=== PATIENT | male | born 1935 | race Caucasian/White ===

== ENCOUNTER 2016-02-23 07:15 | Outpatient (CLI) | payer MEDICARE, OTHER | END 2016-02-23 07:16 | disposition home or self-care (01) | DX: E11.9 Type 2 diabetes mellitus without complications (principal) ==

== ENCOUNTER 2016-06-04 14:36 | Emergency (ER) | payer MEDICARE, OTHER ==
[2016-06-04] MEDS ORDERED: SODIUM CHLORIDE 0.9% 500 ML IV ONE (16:23)
== END 2016-06-04 17:17 | disposition home or self-care (01) ==
DX: R53.1 Weakness (principal); J44.9 Chronic obstructive pulmonary disease, unspecified; J45.909 Unspecified asthma, uncomplicated; E11.9 Type 2 diabetes mellitus without complications; Z79.4 Long term (current) use of insulin; K21.9 Gastro-esophageal reflux disease without esophagitis; Z86.718 Personal history of other venous thrombosis and embolism

== ENCOUNTER 2016-06-05 14:58 | Outpatient (CLI) | payer MEDICARE, OTHER | END 2016-06-05 23:59 | disposition home or self-care (01) | DX: E11.9 Type 2 diabetes mellitus without complications (principal) ==

== ENCOUNTER 2016-06-14 04:33 | Emergency (ER) | payer MEDICARE, OTHER | END 2016-06-14 04:59 | disposition home or self-care (01) | DX: B35.3 Tinea pedis (principal); E11.9 Type 2 diabetes mellitus without complications; I82.409 Acute embolism and thrombosis of unspecified deep veins of unspecified lower extremity; J45.909 Unspecified asthma, uncomplicated; J44.9 Chronic obstructive pulmonary disease, unspecified; K21.9 Gastro-esophageal reflux disease without esophagitis; Z79.4 Long term (current) use of insulin; Z79.51 Long term (current) use of inhaled steroids; A15.9 Respiratory tuberculosis unspecified ==

== ENCOUNTER 2016-08-24 17:48 | Outpatient (CLI) | payer MEDICARE, OTHER ==
--- NOTE | 2016-08-25 20:37 | XRAY Report ---
EXAM: CHEST RADIOGRAPHY EXAM DATE: 08/24/2016 05:59 PM. CLINICAL HISTORY: COPD. COMPARISON: 06/04/2016 TECHNIQUE: 2 views. FINDINGS: Lungs/Pleura: No focal opacities evident. No pleural effusion. No pneumothorax. Normal volumes. Mediastinum: Heart and mediastinal contours are unremarkable. Other: Degenerative change in the spine. Stable right pleural calcification. IMPRESSION: Negative 2-view chest radiography for acute findings or significant interval change since 06/04/2016. [facility] Referring Provider Line: [phone] SITE ID: [id number]
== END 2016-08-24 17:49 | disposition home or self-care (01) ==
LOC: DI 17:48
PROVIDERS: ATTEND Family Medicine
DX: J44.9 Chronic obstructive pulmonary disease, unspecified (principal)
CPT/HCPCS: 71020

== ENCOUNTER 2016-09-06 10:36 | Outpatient (CLI) | payer MEDICARE, OTHER ==
[2016-09-06 19:08] LABS: BASOPHILS # (AUTO) 0.1 10^3/uL (0.0-0.1); BASOPHILS % (AUTO) 0.8 %; EOSINOPHILS # (AUTO) 0.2 10^3/uL (0.0-0.7); EOSINOPHILS % (AUTO) 2.4 %; HCT - HEMATOCRIT 33.8 % (42.0-52.0); HGB - HEMOGLOBIN 10.7 g/dL (14.0-18.0); LYMPHOCYTES # (AUTO) 1.7 10^3/uL (1.5-3.5); LYMPHOCYTES % (AUTO) 17.1 %; MEAN CORPUSCULAR HEMOGLOBIN 23.7 pg (27.0-31.0); MEAN CORPUSCULAR HGB CONC 31.5 g/dL (32.0-36.0); MEAN CORPUSCULAR VOLUME 75.3 fL (80.0-94.0); MEAN PLATELET VOLUME 7.8 fL (7.4-11.4); MONOCYTES # (AUTO) 1.1 10^3/uL (0.0-1.0); MONOCYTES % (AUTO) 11.1 %; NEUTROPHILS # (AUTO) 6.7 10^3/uL (1.5-6.6); NEUTROPHILS % (AUTO) 68.6 %; RED BLOOD COUNT 4.49 10^6/uL (4.70-6.10); RED CELL DISTRIBUTION WIDTH 17.3 % (12.0-15.0); UNCORRECTED WHITE BLOOD COUNT 9.8 x10^3/uL; WHITE BLOOD COUNT 9.8 x10^3/uL (4.8-10.8)
[2016-09-06 19:17] LABS: ALBUMIN/GLOBULIN RATIO 1.3 (1.0-2.2); BILIRUBIN,TOTAL 0.5 mg/dL (0.2-1.0); BUN - BLOOD UREA NITROGEN 21 mg/dL (6-20); CALCIUM 8.3 mg/dL (8.5-10.3); CARBON DIOXIDE - CO2 23 mmol/L (21-32); CHLORIDE 99 mmol/L (101-111); CHOL/HDL RATIO 2.9 (<5.0); CHOLESTEROL 169 mg/dL; CREATININE 1.4 mg/dL (0.6-1.2); GFR - MDRD 49 (>89); GLUCOSE 181 mg/dL (70-100); HDL CHOLESTEROL 59 mg/dL; LDL/HDL RATIO 1.6 (<3.6); POTASSIUM 4.3 mmol/L (3.5-5.0); SODIUM 130 mmol/L (135-145); TOTAL PROTEIN 6.8 g/dL (6.7-8.2); TRIGLYCERIDES 87 mg/dL; VLDL CHOLESTEROL 17 mg/dL
[2016-09-06 19:29] LABS: HEMOGLOBIN A1C 0.86 g/dL
== END 2016-09-06 10:37 | disposition home or self-care (01) ==
LOC: LAB.WCP 10:36
PROVIDERS: ATTEND Family Medicine
DX: E11.9 Type 2 diabetes mellitus without complications (principal)
CPT/HCPCS: 36415; 80053; 80061; 82043; 83036; 85025

== ENCOUNTER 2016-12-05 00:56 | Emergency (ER) | payer MEDICARE, OTHER ==
--- NOTE | 2016-12-05 01:19 | ED Physician Documentation ---
PD HPI LOWER EXT INJURY - Stated complaint Stated Complaint: LT LEG PAIN - Chief complaint Chief Complaint: Ext Problem - History obtained from History obtained from: Patient, Family - History of Present Illness PD HPI LOW EXT INJURY LOCATION: Both, Lower leg Where injury occurred: Home Timing - onset: How many days ago (4) Timing - details: Gradual onset, Still present Worsened by: Moving Associated symptoms: Swelling. No: Weakness Contributing factors: Anticoagulated, Prior ortho surgery, Prosthetic joint Similar symptoms before: Work up / diagnostics Recently seen: Not recently seen - Additional information Additional information: Patient is a 81 year old male who is presenting to the emergency department for lower leg pain. Patient states that for the last four days he has had pain in both of his legs. tonight when he got up to go to the bathroom it hurt to much for him to walk. Patient states that he has had blood clots in the past. Patient denied any trauma, fever, chills or change in his respiratory status. Review of Systems Constitutional: denies: Fever, Chills Eyes: reports: Reviewed and negative Ears: reports: Reviewed and negative Nose: reports: Reviewed and negative Throat: reports: Reviewed and negative Cardiac: reports: Calf pain. denies: Chest pain / pressure, Palpitations Respiratory: denies: Dyspnea, Cough, Wheezing GI: denies: Nausea, Vomiting : denies: Frequency Skin: denies: Rash, Lesions, Abrasion (s), Laceration (s) Musculoskeletal: reports: Extremity pain, Extremity swelling Neurologic: denies: Generalized weakness, Focal weakness, Numbness Immunocompromised: denies: Immunocompromised PD PAST MEDICAL HISTORY - Past Medical History Cardiovascular: Deep vein thrombosis Respiratory: Asthma, COPD, Pneumonia, Tuberculosis, Other Neuro: None Endocrine/Autoimmune: Type 2 diabetes GI: GERD : None HEENT: Other Psych: Anxiety Musculoskeletal: None Derm: Herpes zoster - Past Surgical History Past Surgical History: Yes General: Colonoscopy, EGD Ortho: Knee replacement, Arthroscopic surgery, Other - Present Medications Home Medications: Ambulatory Orders Medication Instructions Recorded Confirmed Fluticasone/Salmeterol [Advair 1 puffs ORAL BID 07/30/13 12/05/16 250-50 Diskus] Insulin Glargine [Lantus] 30 units SUBQ DAILY 07/30/13 12/05/16 Ipratropium/Albuterol [Combivent 1 puffs ORAL BID 07/30/13 12/05/16 Respimat] Levothyroxine [Synthroid] 100 mcg PO QDAC 07/30/13 12/05/16 Montelukast [Singulair] 10 tab ORAL DAILY 07/30/13 12/05/16 Omeprazole [Prilosec] 40 mg PO DAILY 07/30/13 12/05/16 Ranitidine HCl [Zantac] 300 mg PO DAILY 07/30/13 12/05/16 Tamsulosin HCl [Flomax] 0.4 tab ORAL DAILY 07/30/13 12/05/16 Nystatin 10 ml PO BID #100 ml 07/26/14 12/05/16 Apixaban [Eliquis] 5 mg DAILY 02/16/16 12/05/16 Clotrimazole [Clotrimazole AF] 1 applic TP BID #28 gm 06/14/16 12/05/16 - Allergies Allergies/Adverse Reactions: Allergies Allergy/AdvReac Type Severity Reaction Status Date / Time JANNY Inhibitors Allergy Intermediate Unknown Verified 12/05/16 01:11 lovastatin Allergy Intermediate Headache Verified 12/05/16 01:11 tiotropium bromide * Allergy Intermediate Respiratory Verified 12/05/16 01:11 [From Spiriva with HandiHaler] azithromycin [From Zithromax] Allergy Unknown Unknown Verified 12/05/16 01:11 carvedilol [From Coreg] Allergy Unknown Unknown Verified 12/05/16 01:11 losartan [Losartan] Allergy Unknown Unknown Verified 12/05/16 01:11 metformin Allergy Unknown Unknown Verified 12/05/16 01:11 olmesartan medoxomil * Allergy Unknown Unknown Verified 12/05/16 01:11 [From Benicar] - Social History Does the pt smoke?: No Smoking Status: Never smoker Does the pt drink ETOH?: Yes Does the pt have substance abuse?: No - Immunizations Immunizations are current?: Yes - POLST Patient has POLST: No PD ED PE NORMAL - Vitals Vital signs reviewed: Yes - General General: Alert and oriented X 3 - HEENT HEENT: Atraumatic, PERRL - Neck Neck: Supple, no meningeal sign - Cardiac Cardiac: RRR, No murmur - Respiratory Respiratory: No respiratory distress - Abdomen Abdomen: Soft - Derm Derm: Normal color, Warm and dry, No rash - Neuro Neuro: Alert and oriented X 3, No motor deficit, No sensory deficit, Normal speech - Psych Psych: Normal mood, Normal affect PD ED PE EXPANDED - Extremities Extremities: Right leg (increased swelling when comparted to the left, tenderness to palpation), Left leg (tenderness to palpation, no ecchymosis, no deformity), Pedal Pulses Present, Motor intact, Sensory intact, Vascular intact , Tendon intact Results - Vitals Vitals: Vital Signs - 24 hr 12/05/16 12/05/16 01:06 02:22 Temperature 36.9 C Heart Rate 90 82 Respiratory 18 18 Rate Blood Pressure 152/74 H 154/83 H O2 Saturation 96 98 Oxygen O2 Source Room air - Labs Labs: Laboratory Tests 12/05/16 12/05/16 01:25 01:25 WBC 7.5 RBC 4.03 L Hgb 9.1 L Hct 28.4 L MCV 70.5 L MCH 22.5 L MCHC 32.0 RDW 17.5 H Plt Count 312 MPV 6.6 L Neut # 4.3 Lymph # 1.9 [place] # 0.8 Eos # 0.4 Baso # 0.1 Absolute Nucleated RBC 0.00 Nucleated RBC % 0.0 Sodium 129 L Potassium 3.9 Chloride 98 L Carbon Dioxide 22 Anion Gap 9.0 BUN 24 H Creatinine 1.2 Estimated GFR (MDRD) 58 L Glucose 149 H Calcium 8.2 L Total Bilirubin 0.5 AST 18 ALT 17 Alkaline Phosphatase 49 Total Protein 6.6 L Albumin 3.7 Globulin 2.9 Albumin/Globulin Ratio 1.3 Lipase 44 - Rads (name of study) bilateral vasc study Radiology: Final report received (no acute dvt) PD MEDICAL DECISION MAKING - ED course Complexity details: reviewed old records, reviewed results, re-evaluated patient , considered differential, d/w patient, d/w family ED course: Patient was seen and examined at bedside. labs were drawn and imaging was ordered. Patient's diagnostics were all within normal limits. there was no sign of dvt. patient required no further inpatient work up and was stable for discharge with outpatient follow up. Departure - Departure Disposition: 01 Home, Self Care Clinical Impression: Pain of lower extremity Condition: Good Instructions: ED Muscle Pain Leg Cramps Follow-Up: Aleksandra Good DO [Primary Care Provider] - Within 3 Days Comments: Your diagnostics today were within normal limits. It is difficult to say what is causing your pain exactly. it could be due to muscle cramps, or peripheral neuropathy. there is no sign of acute blood clot today. You can take tylenol as needed for pain. You should follow up with your doctor this week. You can return to the emergency department at any time for new, worsening or uncontrollable symptoms.
[2016-12-05 01:30] LABS: BASOPHILS # (AUTO) 0.1 10^3/uL (0.0-0.1); BASOPHILS % (AUTO) 1.3 %; EOSINOPHILS # (AUTO) 0.4 10^3/uL (0.0-0.7); EOSINOPHILS % (AUTO) 4.8 %; HCT - HEMATOCRIT 28.4 % (42.0-52.0); HGB - HEMOGLOBIN 9.1 g/dL (14.0-18.0); LYMPHOCYTES # (AUTO) 1.9 10^3/uL (1.5-3.5); LYMPHOCYTES % (AUTO) 25.8 %; MEAN CORPUSCULAR HEMOGLOBIN 22.5 pg (27.0-31.0); MEAN CORPUSCULAR VOLUME 70.5 fL (80.0-94.0); MEAN PLATELET VOLUME 6.6 fL (7.4-11.4); MONOCYTES # (AUTO) 0.8 10^3/uL (0.0-1.0); MONOCYTES % (AUTO) 10.2 %; NEUTROPHILS # (AUTO) 4.3 10^3/uL (1.5-6.6); NEUTROPHILS % (AUTO) 57.9 %; RED BLOOD COUNT 4.03 10^6/uL (4.70-6.10); RED CELL DISTRIBUTION WIDTH 17.5 % (12.0-15.0); UNCORRECTED WHITE BLOOD COUNT 7.5 x10^3/uL; WHITE BLOOD COUNT 7.5 x10^3/uL (4.8-10.8)
[2016-12-05 01:43] LABS: ALBUMIN/GLOBULIN RATIO 1.3 (1.0-2.2); BILIRUBIN,TOTAL 0.5 mg/dL (0.2-1.0); CALCIUM 8.2 mg/dL (8.5-10.3); CREATININE 1.2 mg/dL (0.6-1.2); POTASSIUM 3.9 mmol/L (3.5-5.0); TOTAL PROTEIN 6.6 g/dL (6.7-8.2)
--- NOTE | 2016-12-05 02:14 | Ultrasound Preliminary Report ---
Exam: US DUPLEX EXT VEINS BILATERAL IMPRESSION: 1. No evidence for deep venous thrombosis bilaterally. 2. Fluid collection at the left anterior lateral knee measuring 2.7 x 0.7 x 2.8 cm. [facility] SITE ID: [id number]
--- NOTE | 2016-12-05 02:16 | Ultrasound Report ---
EXAM: BILATERAL LOWER EXTREMITY VENOUS ULTRASOUND EXAM DATE: 12/05/2016 02:05 AM. CLINICAL HISTORY: Pain in both lower extremities, swelling in left, . COMPARISON: 12/12/2013. TECHNIQUE: Real-time sonographic vascular imaging was performed by the excel specialist through the lower extremities utilizing both color-flow and Doppler spectral analysis. Multiple customer success representative static i mages were saved for review. FINDINGS: Right: Common Femoral Vein (CFV): Normal. CFV-GSV Junction: Normal. Profunda Femoral Vein (PFV): Normal. Femoral Vein (FV) Prox: Normal. Femoral Vein (FV) Mid: Normal. Femoral Vein (FV) Dist: Normal. Popliteal Vein: Normal. Posterior Tibial Veins: Normal. Peroneal Veins: Normal. Left: Common Femoral Vein (CFV): Normal. CFV-GSV Junction: Normal. Profunda Femoral Vein (PFV): Normal. Femoral Vein (FV) Prox: Normal. Femoral Vein (FV) Mid: Normal. Femoral Vein (FV) Dist: Normal. Popliteal Vein: Normal. Posterior Tibial Veins: Normal. Peroneal Veins: Normal. Other: Fluid collection at the left lateral anterior knee measuring 2.7 x 0.7 x 2.8 cm. IMPRESSION: 1. No evidence for deep venous thrombosis bilaterally. 2. Fluid collection at the left anterior lateral knee measuring 2.7 x 0.7 x 2.8 cm. [facility] Referring Provider Line: [phone] SITE ID: [id number]
[2016-12-05 02:22] VITALS: BP 154/83
== END 2016-12-05 02:35 | disposition home or self-care (01) ==
LOC: ED 00:56
DX: M79.605 Pain in left leg (principal); R22.42 Localized swelling, mass and lump, left lower limb; E11.9 Type 2 diabetes mellitus without complications; Z79.4 Long term (current) use of insulin; Z96.659 Presence of unspecified artificial knee joint; Z86.718 Personal history of other venous thrombosis and embolism
CPT/HCPCS: 36415; 80053; 83690; 85025; 93970; 99283

== ENCOUNTER 2017-01-21 07:10 | Outpatient (CLI) | payer MEDICARE, OTHER ==
[2017-01-21 12:43] LABS: ALBUMIN/GLOBULIN RATIO 1.3 (1.0-2.2); BILIRUBIN,TOTAL 0.9 mg/dL (0.2-1.0); CALCIUM 8.3 mg/dL (8.5-10.3); CREATININE 1.6 mg/dL (0.6-1.2); POTASSIUM 4.1 mmol/L (3.5-5.0); TOTAL PROTEIN 6.7 g/dL (6.7-8.2)
== END 2017-01-21 07:11 | disposition home or self-care (01) ==
LOC: LAB.WCP 07:10
PROVIDERS: ATTEND Internal Medicine Critical Care Medicine
DX: J45.50 Severe persistent asthma, uncomplicated (principal)
CPT/HCPCS: 36415; 80053

== ENCOUNTER 2017-02-24 12:16 | Emergency (ER) | payer MEDICARE, OTHER ==
--- NOTE | 2017-02-24 12:47 | ED Physician Documentation ---
PD HPI DYSPNEA - Stated complaint Stated Complaint: COUGH - Chief complaint Chief Complaint: Resp - History obtained from History obtained from: Patient - History of Present Illness Timing - onset: How many weeks ago (1) Timing - onset during: Rest Timing - duration: Weeks (1) Timing - details: Gradual onset, Still present Inciting event(s): URI Improved by: Rest Worsened by: Exertion Associated symptoms: Cough Similar symptoms before: Diagnosis (pneumonia and asperigillosis) Recently seen: Not recently seen - Additional information Additional information: 82-year-old male with a history of bronchiectasis asthma and allergic aspergillosisHas had pneumonia a number of times and he has began to cough and cough up colored phlegm he has had this a number of times previously and usually takes an antibiotic with resolution. He is a poor historian and unable to give adequate or chronologic history about his recent visits to his doctors. He does bring in paperwork showing his diagnosis of allergic aspergillosis and indicates he did not take the antifungal prescribed. He did not take the prednisone prescribed. Review of Systems Constitutional: reports: Myalgias, Fatigue. denies: Fever Eyes: denies: Decreased vision Ears: denies: Ear pain Nose: reports: Rhinorrhea / runny nose, Congestion Throat: denies: Sore throat Cardiac: denies: Chest pain / pressure, Palpitations Respiratory: reports: Dyspnea, Cough GI: denies: Abdominal Pain, Nausea, Vomiting : denies: Dysuria, Frequency PD PAST MEDICAL HISTORY - Past Medical History Cardiovascular: Deep vein thrombosis Respiratory: Asthma, COPD, Pneumonia, Tuberculosis, Other Neuro: None Endocrine/Autoimmune: Type 2 diabetes GI: GERD : None HEENT: Other Psych: Anxiety Musculoskeletal: None Derm: Herpes zoster - Past Surgical History Past Surgical History: Yes General: Colonoscopy, EGD Ortho: Knee replacement, Arthroscopic surgery, Other - Present Medications Home Medications: Ambulatory Orders Medication Instructions Recorded Confirmed Fluticasone/Salmeterol [Advair 1 puffs ORAL BID 07/30/13 12/05/16 250-50 Diskus] Insulin Glargine [Lantus] 30 units SUBQ DAILY 07/30/13 12/05/16 Ipratropium/Albuterol [Combivent 1 puffs ORAL BID 07/30/13 12/05/16 Respimat] Levothyroxine [Synthroid] 100 mcg PO QDAC 07/30/13 12/05/16 Montelukast [Singulair] 10 tab ORAL DAILY 07/30/13 12/05/16 Omeprazole [Prilosec] 40 mg PO DAILY 07/30/13 12/05/16 Ranitidine HCl [Zantac] 300 mg PO DAILY 07/30/13 12/05/16 Tamsulosin HCl [Flomax] 0.4 tab ORAL DAILY 07/30/13 12/05/16 Nystatin 10 ml PO BID #100 ml 07/26/14 12/05/16 Apixaban [Eliquis] 5 mg DAILY 02/16/16 12/05/16 Clotrimazole [Clotrimazole AF] 1 applic TP BID #28 gm 06/14/16 12/05/16 Cefuroxime Axetil [Cefuroxime] 500 mg PO BID #20 tablet 02/24/17 - Allergies Allergies/Adverse Reactions: Allergies Allergy/AdvReac Type Severity Reaction Status Date / Time JANNY Inhibitors Allergy Intermediate Unknown Verified 12/05/16 01:11 lovastatin Allergy Intermediate Headache Verified 12/05/16 01:11 tiotropium bromide * Allergy Intermediate Respiratory Verified 12/05/16 01:11 [From Spiriva with HandiHaler] azithromycin [From Zithromax] Allergy Unknown Unknown Verified 12/05/16 01:11 carvedilol [From Coreg] Allergy Unknown Unknown Verified 12/05/16 01:11 losartan [Losartan] Allergy Unknown Unknown Verified 12/05/16 01:11 metformin Allergy Unknown Unknown Verified 12/05/16 01:11 olmesartan medoxomil * Allergy Unknown Unknown Verified 12/05/16 01:11 [From Benicar] - Social History Does the pt smoke?: No Smoking Status: Never smoker Does the pt drink ETOH?: Yes Does the pt have substance abuse?: No - Immunizations Immunizations are current?: Yes - POLST Patient has POLST: No PD ED PE NORMAL - Vitals Vital signs reviewed: Yes (Tachycardic tachypneic and hypertensive) - General General: No acute distress, Well developed/nourished - HEENT HEENT: Atraumatic, PERRL, EOMI, Other (The left TM is erythematous around the margin and along the umbo the right is with less inflammation.) - Neck Neck: Supple, no meningeal sign, No bony TTP - Cardiac Cardiac: Other - Respiratory Respiratory: No respiratory distress (Tachycardic to a rate of 110 with a 2 out of 6 holosystolic murmur.), Other - Abdomen Abdomen: Soft (Bibasilar rhonchi worse on the right.), Non tender - Back Back: No CVA TTP, No spinal TTP - Derm Derm: Normal color, No rash - Extremities Extremities: No deformity, No edema - Neuro Neuro: No motor deficit, No sensory deficit Eye Opening: Spontaneous Motor: Obeys Commands Verbal: Oriented GCS Score: 15 - Psych Psych: Normal mood, Normal affect Results - Vitals Vitals: Vital Signs - 24 hr 02/24/17 12:19 Temperature 36.1 C L Heart Rate 102 H Respiratory 26 H Rate Blood Pressure 146/75 H O2 Saturation 96 Oxygen O2 Source Room air - Rads (name of study) 2 view chest Radiology: Prelim report reviewed (Impression: No acute cardiopulmonary abnormality.), EMP read indepedently, See rad report PD MEDICAL DECISION MAKING - ED course Complexity details: reviewed old records, reviewed results, re-evaluated patient , considered differential, d/w patient ED course: 82-year-old male with noncompliance to his molecular pathologist recommendations has developed a cough productive of sputum. He has prior history himself with this repeatedly and he requests antibiotic prescription. Exam of the patient shows otitis on exam and he does appear to have some rhonchi as well as some subtle findings on his chest x-ray which are not commented on by the radiologist. Here in the emergency department he is administered Rocephin intramuscularly and we will place him on a course of Ceftin. Departure - Departure Disposition: 01 Home, Self Care Clinical Impression: Pneumonia Qualifiers: Pneumonia type: due to unspecified organism Laterality: bilateral Lung location : lower lobe of lung Qualified Code(s): J18.9 - Pneumonia, unspecified organism Otitis media Qualifiers: Otitis media type: suppurative Chronicity: acute Laterality: left Recurrence: not specified as recurrent Spontaneous tympanic membrane rupture: without spontaneous rupture Qualified Code(s): H66.002 - Acute suppurative otitis media without spontaneous rupture of ear drum, left ear Instructions: ED Otitis Media Acute Adult, ED Pneumonia Adult Follow-Up: Aleksandra Good DO [Primary Care Provider] - Prescriptions: Cefuroxime Axetil [Cefuroxime] 500 mg PO BID #20 tablet
[2017-02-24] MEDS ORDERED: LIDOCAINE 1% 2 ML VIAL SUBQ ONE (13:34)
[2017-02-24] MEDS ORDERED: cefTRIAXone 1 GM VIAL IM STA (13:34)
--- NOTE | 2017-02-24 14:00 | XRAY Report ---
EXAM: CHEST RADIOGRAPHY EXAM DATE: 02/24/2017 01:35 PM. CLINICAL HISTORY: Cough. COMPARISON: 08/24/2016. TECHNIQUE: 2 views. FINDINGS: Lungs/Pleura: No consolidation. Negative for pleural effusion and pneumothorax. Lungs appear unchange d. Mediastinum: Heart and mediastinal contours are unremarkable. Other: None. IMPRESSION: No acute cardiopulmonary abnormality. [facility] Referring Provider Line: [phone] SITE ID: [id number]
[2017-02-24 15:13] VITALS: BP 135/75
== END 2017-02-24 14:44 | disposition home or self-care (01) ==
LOC: ED 12:16
DX: J18.9 Pneumonia, unspecified organism (principal); H66.002 Acute suppurative otitis media without spontaneous rupture of ear drum, left ear; Z86.718 Personal history of other venous thrombosis and embolism; Z79.01 Long term (current) use of anticoagulants; J44.9 Chronic obstructive pulmonary disease, unspecified; E11.9 Type 2 diabetes mellitus without complications; Z79.4 Long term (current) use of insulin; K21.9 Gastro-esophageal reflux disease without esophagitis
CPT/HCPCS: 71046; 96372; 99283; 99284

== ENCOUNTER 2017-04-22 07:10 | Outpatient (CLI) | payer MEDICARE, OTHER ==
[2017-04-22 13:09] LABS: BASOPHILS # (AUTO) 0.2 10^3/uL (0.0-0.1); BASOPHILS % (AUTO) 1.5 %; EOSINOPHILS % (AUTO) 0.3 %; LYMPHOCYTES # (AUTO) 2.8 10^3/uL (1.5-3.5); LYMPHOCYTES % (AUTO) 27.6 %; MEAN CORPUSCULAR HEMOGLOBIN 20.2 pg (27.0-31.0); MEAN CORPUSCULAR HGB CONC 31.5 g/dL (32.0-36.0); MEAN CORPUSCULAR VOLUME 64.1 fL (80.0-94.0); MEAN PLATELET VOLUME 7.7 fL (7.4-11.4); MONOCYTES # (AUTO) 0.9 10^3/uL (0.0-1.0); MONOCYTES % (AUTO) 8.8 %; NEUTROPHILS # (AUTO) 6.4 10^3/uL (1.5-6.6); NEUTROPHILS % (AUTO) 61.8 %; PLT - PLATELET COUNT 361 10^3/uL (130-450); RED BLOOD COUNT 4.44 10^6/uL (4.70-6.10); RED CELL DISTRIBUTION WIDTH 20.1 % (12.0-15.0); WHITE BLOOD COUNT 10.3 x10^3/uL (4.8-10.8)
[2017-04-22 13:27] LABS: PLATELET ESTIMATE, MANUAL NORMAL (130-450,000) (NORMAL); PLATELET MORPHOLOGY NORMAL APPEARANCE (NORMAL)
[2017-04-22 13:42] LABS: ALBUMIN 4.1 g/dL (3.2-5.5); ALBUMIN/GLOBULIN RATIO 1.2 (1.0-2.2); ALKALINE PHOSPHATASE 43 IU/L (42-121); ALT ALANINE AMINOTRANSFERASE 16 IU/L (10-60); AST ASPARTATE AMINOTRANSFERASE 21 IU/L (10-42); BILIRUBIN,TOTAL 0.5 mg/dL (0.2-1.0); BUN - BLOOD UREA NITROGEN 29 mg/dL (6-20); CALCIUM 8.5 mg/dL (8.5-10.3); CARBON DIOXIDE - CO2 23 mmol/L (21-32); CHLORIDE 102 mmol/L (101-111); CHOL/HDL RATIO 2.5 (<5.0); CHOLESTEROL 152 mg/dL; CREATININE 1.5 mg/dL (0.6-1.2); GFR - MDRD 45 (>89); GLUCOSE 117 mg/dL (70-100); HDL CHOLESTEROL 61 mg/dL; LDL CHOLESTEROL,CALCULATED 81 mg/dL; LDL/HDL RATIO 1.3 (<3.6); SODIUM 133 mmol/L (135-145); TOTAL PROTEIN 7.5 g/dL (6.7-8.2); VLDL CHOLESTEROL 10 mg/dL
[2017-04-22 13:54] LABS: HB2 TOTAL 9.5 g/dL; HEMOGLOBIN A1C 0.59 g/dL; HEMOGLOBIN A1C % 7.8 % (4.6-6.2)
== END 2017-04-22 07:11 | disposition home or self-care (01) ==
LOC: LAB.WCP 07:10
PROVIDERS: ATTEND Family Medicine
DX: E11.9 Type 2 diabetes mellitus without complications (principal)
CPT/HCPCS: 36415; 80053; 80061; 82043; 83036; 83721; 85025

== ENCOUNTER 2017-05-07 08:00 | Outpatient (CLI) | payer MEDICARE, OTHER ==
[2017-05-07 19:16] LABS: BASOPHILS # (AUTO) 0.1 10^3/uL (0.0-0.1); BASOPHILS % (AUTO) 1.2 %; EOSINOPHILS # (AUTO) 0.3 10^3/uL (0.0-0.7); EOSINOPHILS % (AUTO) 3.1 %; HGB - HEMOGLOBIN 9.5 g/dL (14.0-18.0); LYMPHOCYTES # (AUTO) 1.7 10^3/uL (1.5-3.5); LYMPHOCYTES % (AUTO) 18.3 %; MEAN CORPUSCULAR HEMOGLOBIN 20.7 pg (27.0-31.0); MEAN CORPUSCULAR HGB CONC 30.9 g/dL (32.0-36.0); MEAN CORPUSCULAR VOLUME 66.8 fL (80.0-94.0); MEAN PLATELET VOLUME 8.5 fL (7.4-11.4); MONOCYTES # (AUTO) 0.8 10^3/uL (0.0-1.0); MONOCYTES % (AUTO) 8.8 %; NEUTROPHILS # (AUTO) 6.4 10^3/uL (1.5-6.6); NEUTROPHILS % (AUTO) 68.6 %; PLT - PLATELET COUNT 319 10^3/uL (130-450); RED BLOOD COUNT 4.59 10^6/uL (4.70-6.10); RED CELL DISTRIBUTION WIDTH 21.9 % (12.0-15.0); WHITE BLOOD COUNT 9.3 x10^3/uL (4.8-10.8)
[2017-05-07 19:32] LABS: PLATELET ESTIMATE, MANUAL NORMAL (130-450,000) (NORMAL); PLATELET MORPHOLOGY NORMAL APPEARANCE (NORMAL)
== END 2017-05-07 08:01 | disposition home or self-care (01) ==
LOC: LAB.WCP 08:00
PROVIDERS: ATTEND Family Medicine
DX: E11.9 Type 2 diabetes mellitus without complications (principal); D50.9 Iron deficiency anemia, unspecified
CPT/HCPCS: 36415; 82985; 85025

== ENCOUNTER 2017-05-30 01:13 | Emergency (ER) | payer MEDICARE, OTHER ==
--- NOTE | 2017-05-30 01:28 | ED Physician Documentation ---
PD HPI LOWER EXT INJURY - Stated complaint Stated Complaint: LEG PX - Chief complaint Chief Complaint: Ext Problem - History obtained from History obtained from: Patient - History of Present Illness PD HPI LOW EXT INJURY LOCATION: Right, Upper leg, Lower leg Where injury occurred: Home Worsened by: Moving, Palpating Associated symptoms: Swelling. No: Weakness, Numbness Contributing factors: Anticoagulated Similar symptoms before: Work up / diagnostics Recently seen: Clinic - Additional information Additional information: Patient is an 82 year old male with a history of peripheral neuropathy, chronic pain and dvt who is presenting to the emergency department for right sided leg pain and cramping. patient states that it has been going on for about 2 weeks. Patient denies any trauma and reports that he has been compliant with his blood thinners. Patient is on diuretics. Review of Systems Constitutional: denies: Fever, Chills Eyes: reports: Reviewed and negative Ears: reports: Reviewed and negative Nose: reports: Reviewed and negative Throat: reports: Reviewed and negative Cardiac: reports: Pedal edema, Calf pain Respiratory: reports: Wheezing. denies: Dyspnea GI: denies: Abdominal Pain, Nausea, Vomiting Skin: denies: Rash, Lesions Musculoskeletal: reports: Extremity pain, Joint pain, Extremity swelling Neurologic: denies: Generalized weakness, Focal weakness Immunocompromised: denies: Immunocompromised PD PAST MEDICAL HISTORY - Past Medical History Past Medical History: Yes Cardiovascular: Deep vein thrombosis Respiratory: Asthma, COPD, Pneumonia, Tuberculosis, Other Neuro: None Endocrine/Autoimmune: Type 2 diabetes GI: GERD : None HEENT: Other Psych: Anxiety Musculoskeletal: None Derm: Herpes zoster - Past Surgical History Past Surgical History: Yes General: Colonoscopy, EGD Ortho: Knee replacement, Arthroscopic surgery, Other - Present Medications Home Medications: Ambulatory Orders Medication Instructions Recorded Confirmed Fluticasone/Salmeterol [Advair 1 puffs ORAL BID 07/30/13 12/05/16 250-50 Diskus] Insulin Glargine [Lantus] 30 units SUBQ DAILY 07/30/13 12/05/16 Ipratropium/Albuterol [Combivent 1 puffs ORAL BID 07/30/13 12/05/16 Respimat] Levothyroxine [Synthroid] 100 mcg PO QDAC 07/30/13 12/05/16 Montelukast [Singulair] 10 tab ORAL DAILY 07/30/13 12/05/16 Apixaban [Eliquis] 5 mg PO DAILY 02/16/16 12/05/16 Albuterol Sulfate [Proair Hfa 1 - 2 puffs INH Q4H 05/30/17 Inhaler] Cholecalciferol (Vitamin D3) 2,000 unit PO DAILY 05/30/17 [Vitamin D3] Ferrous Sulfate 325 mg PO DAILY 05/30/17 05/30/17 Glimepiride 1 mg PO DAILY 05/30/17 Latanoprost 0.005% Ophth Drops 1 drops EACHEYE DAILY 05/30/17 [Xalatan Ophth Drops] - Allergies Allergies/Adverse Reactions: Allergies Allergy/AdvReac Type Severity Reaction Status Date / Time JANNY Inhibitors Allergy Intermediate Unknown Verified 05/30/17 01:21 lovastatin Allergy Intermediate Headache Verified 05/30/17 01:21 tiotropium bromide * Allergy Intermediate Respiratory Verified 05/30/17 01:21 [From Spiriva with HandiHaler] azithromycin [From Zithromax] Allergy Unknown Unknown Verified 05/30/17 01:21 carvedilol [From Coreg] Allergy Unknown Unknown Verified 05/30/17 01:21 losartan [Losartan] Allergy Unknown Unknown Verified 05/30/17 01:21 metformin Allergy Unknown Unknown Verified 05/30/17 01:21 olmesartan medoxomil * Allergy Unknown Unknown Verified 05/30/17 01:21 [From Benicar] - Social History Does the pt smoke?: No Smoking Status: Never smoker Does the pt drink ETOH?: Yes Does the pt have substance abuse?: No - Immunizations Immunizations are current?: Yes - POLST Patient has POLST: No PD ED PE NORMAL - Vitals Vital signs reviewed: Yes - General General: Alert and oriented X 3 - HEENT HEENT: Atraumatic - Cardiac Cardiac: RRR - Respiratory Respiratory: No respiratory distress - Abdomen Abdomen: Non distended - Derm Derm: Normal color - Neuro Neuro: Alert and oriented X 3 PD ED PE EXPANDED - HEENT HEENT: Dry mucous membranes - Extremities Extremities: Right thigh (mild tenderness to palpation), Right calf TTP/cord Results - Vitals Vitals: Vital Signs - 24 hr 05/30/17 05/30/17 01:17 02:41 Temperature 36.1 C L Heart Rate 86 71 Respiratory 16 16 Rate Blood Pressure 150/78 H 156/87 H O2 Saturation 98 98 Oxygen O2 Source Room air - Labs Labs: Laboratory Tests 05/30/17 05/30/17 05/30/17 01:45 01:45 01:45 WBC 7.6 RBC 4.73 Hgb 10.8 L Hct 34.3 L MCV 72.7 L MCH 22.9 L MCHC 31.5 L RDW 29.6 H Plt Count 274 MPV 8.5 Neut # 4.5 Lymph # 1.8 [place] # 0.9 Eos # 0.3 Baso # 0.2 H Absolute Nucleated RBC 0.00 Nucleated RBC % 0.0 Manual Slide Review Indicated Platelet Estimate NORMAL (130-450,000) RBC Morph Micro Appear 1+ OVALOCYTES PT 14.8 H INR 1.3 H Sodium 129 L Potassium 4.3 Chloride 97 L Carbon Dioxide 23 Anion Gap 9.0 BUN 30 H Creatinine 1.5 H Estimated GFR (MDRD) 45 L Glucose 128 H Calcium 8.8 Phosphorus 4.7 H Magnesium 2.0 Total Bilirubin 0.5 AST 18 ALT 13 Alkaline Phosphatase 51 Total Protein 7.3 Albumin 4.1 Globulin 3.2 Albumin/Globulin Ratio 1.3 Lipase 33 - Rads (name of study) dvt study Radiology: Final report received (no occulsive dvt) PD MEDICAL DECISION MAKING - ED course Complexity details: reviewed old records, reviewed results, re-evaluated patient , considered differential, d/w patient ED course: Patient was seen and examined at bedside. patient was in no acute distress. labs were drawn and imaging was ordered. When patient returned the images were reviewed. There was no occlusive blood clot. Patient required no further inpatient work up and was stable for discharge with outpatient follow up. Departure - Departure Disposition: 01 Home, Self Care Clinical Impression: Pain of lower extremity Condition: Good Instructions: ED Muscle Pain Leg Cramps Follow-Up: Aleksandra Good DO [Primary Care Provider] - Within 3 Days Comments: Your diagnostics today were within normal limits. there is no significant dvt todday. You should continue with your eliquis. You should stay well hydrated. You should follow up with your doctor if your symptoms persist. You may return to the emergency department at any time for new, worsening or uncontrollable symptoms.
[2017-05-30 01:55] LABS: BASOPHILS # (AUTO) 0.2 10^3/uL (0.0-0.1); BASOPHILS % (AUTO) 2.3 %; EOSINOPHILS # (AUTO) 0.3 10^3/uL (0.0-0.7); EOSINOPHILS % (AUTO) 4.3 %; HGB - HEMOGLOBIN 10.8 g/dL (14.0-18.0); INR 1.3 (0.8-1.2); LYMPHOCYTES # (AUTO) 1.8 10^3/uL (1.5-3.5); LYMPHOCYTES % (AUTO) 23.5 %; MEAN CORPUSCULAR HEMOGLOBIN 22.9 pg (27.0-31.0); MEAN CORPUSCULAR HGB CONC 31.5 g/dL (32.0-36.0); MEAN CORPUSCULAR VOLUME 72.7 fL (80.0-94.0); MEAN PLATELET VOLUME 8.5 fL (7.4-11.4); MONOCYTES # (AUTO) 0.9 10^3/uL (0.0-1.0); MONOCYTES % (AUTO) 11.4 %; NEUTROPHILS # (AUTO) 4.5 10^3/uL (1.5-6.6); NEUTROPHILS % (AUTO) 58.5 %; PLT - PLATELET COUNT 274 10^3/uL (130-450); PT - PROTHROMBIN TIME 14.8 secs (9.9-12.6); RED BLOOD COUNT 4.73 10^6/uL (4.70-6.10); RED CELL DISTRIBUTION WIDTH 29.6 % (12.0-15.0); WHITE BLOOD COUNT 7.6 x10^3/uL (4.8-10.8)
[2017-05-30 02:03] LABS: ALBUMIN 4.1 g/dL (3.2-5.5); ALBUMIN/GLOBULIN RATIO 1.3 (1.0-2.2); BILIRUBIN,TOTAL 0.5 mg/dL (0.2-1.0); CALCIUM 8.8 mg/dL (8.5-10.3); CREATININE 1.5 mg/dL (0.6-1.2); PHOSPHORUS 4.7 mg/dL (2.5-4.6); TOTAL PROTEIN 7.3 g/dL (6.7-8.2)
[2017-05-30 02:39] LABS: PLATELET ESTIMATE, MANUAL NORMAL (130-450,000) (NORMAL)
[2017-05-30 02:41] VITALS: BP 156/87
--- NOTE | 2017-05-30 02:59 | Ultrasound Preliminary Report ---
Exam: US DUPLEX EXT VEINS RIGHT IMPRESSION: No evidence for acute right leg deep venous thrombosis. [facility] SITE ID: [id number]
--- NOTE | 2017-05-30 03:19 | Ultrasound Report ---
EXAM: RIGHT LOWER EXTREMITY VENOUS ULTRASOUND EXAM DATE: 05/30/2017 02:42 AM. CLINICAL HISTORY: Unilateral pain and swelling of right leg, history of deep vein thrombosis. COMPARISON: December 05 2016. TECHNIQUE: Real-time sonographic vascular imaging was performed by the tmd teacher assistant through the lower extremity utilizing both color-flow and Doppler spectral analysis. Multiple sales representative graphic art static héctor ges were saved for review. FINDINGS: Common Femoral Vein (CFV): Normal. CFV-GSV Junction: Normal. Profunda Femoral Vein (PFV): Normal. Femoral Vein (FV) Prox: Normal. Femoral Vein (FV) Mid: Normal. Femoral Vein (FV) Dist: Not completely compressible, does fill with color. Question old tiny residual nonocclusive thrombus. Popliteal Vein: Normal. Posterior Tibial Veins: Normal. Peroneal Veins: Normal. Contralateral Left CFV: Normal. Other: None. IMPRESSION: No evidence for acute right leg deep venous thrombosis. [facility] Referring Provider Line: [phone] SITE ID: [id number]
== END 2017-05-30 03:37 | disposition home or self-care (01) ==
LOC: ED 01:13
DX: M79.604 Pain in right leg (principal); J44.9 Chronic obstructive pulmonary disease, unspecified; E11.42 Type 2 diabetes mellitus with diabetic polyneuropathy; Z86.718 Personal history of other venous thrombosis and embolism; Z86.11 Personal history of tuberculosis; Z87.01 Personal history of pneumonia (recurrent); Z96.659 Presence of unspecified artificial knee joint; Z79.51 Long term (current) use of inhaled steroids; Z79.4 Long term (current) use of insulin; Z79.01 Long term (current) use of anticoagulants
CPT/HCPCS: 36415; 80053; 83690; 83735; 84100; 85025; 85610; 99283

== ENCOUNTER 2017-07-23 10:11 | Outpatient (CLI) | payer MEDICARE, OTHER ==
--- NOTE | 2017-07-26 09:54 | DEXA Report ---
DEXA SCAN: 07/23/2017 HISTORY: High risk for osteoporosis, inflammatory bowel disease, diabetes. TECHNIQUE: Dual energy x-ray absorptiometry (DXA) was performed on a WedWu system. Regions measured are the AP spine, femoral neck, and, if needed, forearm. COMPARISON: None. In accordance with the International Society for Clinical Densitometry (ISCD) guidelines, data from previous exams may be reanalyzed using current recommendations and techniques. This is done to allow a more accurate basis for comparison with the current study. FINDINGS: The data for the lumbar spine is as follows: REGION BMD (g/cm/cm) T-SCORE Z-SCORE L1 1.158 0.0 0.2 L2 1.390 1.2 1.5 L3 1.521 2.3 2.6 L4 1.587 2.9 3.1 TOTAL 1.427 1.7 2.0 NOTE: All evaluable vertebrae are used for classification. The data for the hip is as follows: REGION BMD (g/cm/cm) T-SCORE Z-SCORE Neck 0.940 -1.0 0.3 TOTAL 1.146 0.3 1.3 NOTE: The femoral neck or total proximal femur, whichever is lowest, is used for classification. IMPRESSION: BONE MINERAL DENSITY VALUES ABOVE. THE WHO CLASSIFICATION BASED ON THE INTERNATIONAL REFERENCE STANDARD IS OSTEOPOROSIS. THE FRACTURE RISK IS HIGH. RECOMMENDATION: Patients with diagnosis of osteoporosis or osteopenia should have regular bone mineral density assessment. For those eligible for Medicare, routine testing is allowed once every 2 years. Testing frequency can be increased for patients who have rapidly progressing disease or for those who are receiving medical therapy to restore bone mass. COMMENT: World Health Organization (WHO) definitions for osteoporosis and osteopenia: NORMAL BMD: T-score at 1.0 or higher, fracture risk is low. OSTEOPENIA BMD: T-score between 1.0 and -2.5, fracture risk is increased. OSTEOPOROSIS BMD: T-score at 2.5 or lower, fracture risk high. National Osteoporosis Foundation recommends: 1. Obtain adequate dietary calcium (at least 1200 mg per day) and vitamin D (400 -800 international units per day). 2. Participate, as appropriate, in regular weightbearing and muscle- strengthening exercise. 3. Avoid tobacco use and reduce alcohol and caffeine intake. 4. For more detailed information see the website at www.NOF.org. MTDD
== END 2017-07-23 10:12 | disposition home or self-care (01) ==
LOC: DI 10:11
PROVIDERS: ATTEND Family Medicine
DX: M81.0 Age-related osteoporosis without current pathological fracture (principal); M89.9 Disorder of bone, unspecified; Z91.89 Other specified personal risk factors, not elsewhere classified
CPT/HCPCS: 77080

== ENCOUNTER 2017-08-17 06:21 | Emergency (ER) | payer MEDICARE, OTHER ==
[2017-08-17 06:30] VITALS: BP 131/62
[2017-08-17] MEDS ORDERED: ACETAMINOPHEN 500 MG TABLET PO STA (06:49)
[2017-08-17] MEDS ORDERED: CEPHALEXIN 250 MG Prepack 8 PO ONE (06:49)
[2017-08-17] MEDS ORDERED: cephALEXin 250 MG CAPSULE PO STA (06:49)
[2017-08-17] MEDS ORDERED: BACITRACIN OINT TOP STA (06:49)
--- NOTE | 2017-08-17 06:49 | ED Physician Documentation ---
PD HPI LOWER EXT INJURY - Stated complaint Stated Complaint: FOOT PAIN - Chief complaint Chief Complaint: Ext Problem - History obtained from History obtained from: Patient - History of Present Illness PD HPI LOW EXT INJURY LOCATION: Right, Toe Type of injury: Laceration, Other (surgery) Timing - onset: How many days ago (3) Timing - details: Gradual onset, Still present Worsened by: Moving, Palpating Similar symptoms before: Work up / diagnostics Recently seen: Surgery - Additional information Additional information: Patient is an 82 year old male presenting to the emergency department for redness and swelling of a surgical site. Patient had a growth in between the 4th and 5th digit of his right foot. it was removed a few days prior. patient was started on bactrim but he developed worsening pain and redness in that area. Review of Systems Ten Systems: 10 systems reviewed and negative Musculoskeletal: reports: Extremity pain, Extremity swelling PD PAST MEDICAL HISTORY - Past Medical History Past Medical History: Yes Cardiovascular: Deep vein thrombosis Respiratory: Asthma, COPD, Pneumonia, Tuberculosis, Other Endocrine/Autoimmune: Type 2 diabetes GI: GERD : None HEENT: Other Psych: Anxiety Musculoskeletal: None Derm: Herpes zoster - Past Surgical History Past Surgical History: Yes General: Colonoscopy, EGD Ortho: Knee replacement, Arthroscopic surgery, Other - Present Medications Home Medications: Ambulatory Orders Medication Instructions Recorded Confirmed Fluticasone/Salmeterol [Advair 1 puffs ORAL BID 07/30/13 12/05/16 250-50 Diskus] Insulin Glargine [Lantus] 30 units SUBQ DAILY 07/30/13 12/05/16 Ipratropium/Albuterol [Combivent 1 puffs ORAL BID 07/30/13 12/05/16 Respimat] Levothyroxine [Synthroid] 100 mcg PO QDAC 07/30/13 12/05/16 Montelukast [Singulair] 10 tab ORAL DAILY 07/30/13 12/05/16 Apixaban [Eliquis] 5 mg PO DAILY 02/16/16 12/05/16 Albuterol Sulfate [Proair Hfa 1 - 2 puffs INH Q4H 05/30/17 Inhaler] Cholecalciferol (Vitamin D3) 2,000 unit PO DAILY 05/30/17 [Vitamin D3] Ferrous Sulfate 325 mg PO DAILY 05/30/17 05/30/17 Glimepiride 1 mg PO DAILY 05/30/17 Latanoprost 0.005% Ophth Drops 1 drops EACHEYE DAILY 05/30/17 [Xalatan Ophth Drops] Bacitracin 1 applic TOP BID #1 oint...g. 08/17/17 Cephalexin [Keflex] 500 mg PO Q6H 7 Days capsule 08/17/17 - Allergies Allergies/Adverse Reactions: Allergies Allergy/AdvReac Type Severity Reaction Status Date / Time JANNY Inhibitors Allergy Intermediate Unknown Verified 05/30/17 01:21 lovastatin Allergy Intermediate Headache Verified 05/30/17 01:21 tiotropium bromide * Allergy Intermediate Respiratory Verified 05/30/17 01:21 [From Spiriva with HandiHaler] azithromycin [From Zithromax] Allergy Unknown Unknown Verified 05/30/17 01:21 carvedilol [From Coreg] Allergy Unknown Unknown Verified 05/30/17 01:21 losartan [Losartan] Allergy Unknown Unknown Verified 05/30/17 01:21 metformin Allergy Unknown Unknown Verified 05/30/17 01:21 olmesartan medoxomil * Allergy Unknown Unknown Verified 05/30/17 01:21 [From Benicar] - Social History Does the pt smoke?: No Smoking Status: Never smoker Does the pt drink ETOH?: Yes Does the pt have substance abuse?: No - Immunizations Immunizations are current?: Yes - POLST Patient has POLST: No PD ED PE NORMAL - Vitals Vital signs reviewed: Yes - General General: Alert and oriented X 3 - HEENT HEENT: Atraumatic - Cardiac Cardiac: RRR - Neuro Neuro: Alert and oriented X 3 Eye Opening: Spontaneous PD ED PE EXPANDED - Extremities Feet visual: 1 - rash, tenderness (cellulitic rash, sutures in the webbing between toes) Results - Vitals Vitals: Vital Signs - 24 hr 08/17/17 06:23 Temperature 37.1 C Heart Rate 82 Respiratory 16 Rate Blood Pressure 131/62 H O2 Saturation 97 Oxygen O2 Source Room air - Labs Labs: Laboratory Tests 08/17/17 06:33 POC Whole Bld Glucose 121 H PD MEDICAL DECISION MAKING - ED course Complexity details: reviewed old records, reviewed results, re-evaluated patient , considered differential, d/w patient ED course: patient was seen and examined at bedside. patient's wound was evaluated. there cellulitic area was outlined and patient was started on topical and a second oral agent. patient had no fever and vital signs were stable. No imaging was indicated at this time and patient was stable for discharge with close outpatient follow up. - Sepsis Event Vital Signs: Vital Signs - 24 hr 08/17/17 06:23 Temperature 37.1 C Heart Rate 82 Respiratory 16 Rate Blood Pressure 131/62 H O2 Saturation 97 Oxygen O2 Source Room air Departure - Departure Disposition: Home, Self Care Clinical Impression: Wound infection after surgery Condition: Good Instructions: Cellulitis Dc, ED Wound Care Follow-Up: Aleksandra Good DO [Primary Care Provider] - Prescriptions: Bacitracin 1 applic TOP BID #1 oint...g. Cephalexin [Keflex] 500 mg PO Q6H 7 Days capsule Comments: Your symptoms today are being caused by a wound infection. An additional antibiotic has been added, as well as a topical antibiotic. it has been outlined and you should monitor for signs of improvement. You can ice the wound and keep it elevated. You can take tylenol 1000mg as needed for pain. You should follow up with the doctor on saturday for re-evaluation. You may return to the emergency department at any time for new, worsening or uncontrollable symptoms. Discharge Date/Time: 08/17/17 07:06
== END 2017-08-17 07:06 | disposition home or self-care (01) ==
LOC: ED 06:21
DX: L03.031 Cellulitis of right toe (principal); L76.82 Other postprocedural complications of skin and subcutaneous tissue; Z86.718 Personal history of other venous thrombosis and embolism; Z79.01 Long term (current) use of anticoagulants; E11.9 Type 2 diabetes mellitus without complications; Z79.4 Long term (current) use of insulin; J44.9 Chronic obstructive pulmonary disease, unspecified; J45.909 Unspecified asthma, uncomplicated
CPT/HCPCS: 99283; A9270

== ENCOUNTER 2017-08-19 10:53 | Emergency (ER) | payer MEDICARE, OTHER ==
[2017-08-19 11:07] VITALS: BP 139/80
--- NOTE | 2017-08-19 12:17 | ED Physician Documentation ---
History of Present Illness - Stated complaint Stated Complaint: R FOOT PX - Chief complaint Chief Complaint: Ext Problem - History obtained from History obtained from: Patient, Family - History of Present Illness Timing: How many weeks ago (1) Pain level max: 10 Pain level now: 10 Improved by: nothing Worsened by: nothing - Additonal information Additional information: Patient is an 82-year-old diabetic male with a right foot infection following surgery a week ago. Does not know who performed the surgery. He states he has an appointment for a wound check next week. Was seen here on Saturday and given Keflex in addition to the Bactrim. States he is not improving at this time. No fevers. No vomiting. Review of Systems Constitutional: denies: Fever, Chills Ears: denies: Ear pain Nose: denies: Rhinorrhea / runny nose, Congestion Respiratory: denies: Cough GI: denies: Nausea, Vomiting, Diarrhea Musculoskeletal: denies: Neck pain, Back pain Neurologic: denies: Headache PD PAST MEDICAL HISTORY - Past Medical History Past Medical History: Yes Cardiovascular: Deep vein thrombosis Respiratory: Asthma, COPD, Pneumonia, Tuberculosis, Other Endocrine/Autoimmune: Type 2 diabetes GI: GERD : None HEENT: Other Psych: Anxiety Musculoskeletal: None Derm: Herpes zoster - Past Surgical History Past Surgical History: Yes General: Colonoscopy, EGD Ortho: Knee replacement, Arthroscopic surgery, Other - Present Medications Home Medications: Ambulatory Orders Medication Instructions Recorded Confirmed Fluticasone/Salmeterol [Advair 1 puffs ORAL BID 07/30/13 12/05/16 250-50 Diskus] Insulin Glargine [Lantus] 30 units SUBQ DAILY 07/30/13 12/05/16 Ipratropium/Albuterol [Combivent 1 puffs ORAL BID 07/30/13 12/05/16 Respimat] Levothyroxine [Synthroid] 100 mcg PO QDAC 07/30/13 12/05/16 Montelukast [Singulair] 10 tab ORAL DAILY 07/30/13 12/05/16 Apixaban [Eliquis] 5 mg PO DAILY 02/16/16 12/05/16 Albuterol Sulfate [Proair Hfa 1 - 2 puffs INH Q4H 05/30/17 Inhaler] Cholecalciferol (Vitamin D3) 2,000 unit PO DAILY 05/30/17 [Vitamin D3] Ferrous Sulfate 325 mg PO DAILY 05/30/17 05/30/17 Glimepiride 1 mg PO DAILY 05/30/17 Latanoprost 0.005% Ophth Drops 1 drops EACHEYE DAILY 05/30/17 [Xalatan Ophth Drops] Bacitracin 1 applic TOP BID #1 oint...g. 08/17/17 Cephalexin [Keflex] 500 mg PO Q6H 7 Days capsule 08/17/17 Ciprofloxacin HCl [Cipro] 500 mg PO BID #20 tablet 08/19/17 - Allergies Allergies/Adverse Reactions: Allergies Allergy/AdvReac Type Severity Reaction Status Date / Time JANNY Inhibitors Allergy Intermediate Unknown Verified 05/30/17 01:21 lovastatin Allergy Intermediate Headache Verified 05/30/17 01:21 tiotropium bromide * Allergy Intermediate Respiratory Verified 05/30/17 01:21 [From Spiriva with HandiHaler] azithromycin [From Zithromax] Allergy Unknown Unknown Verified 05/30/17 01:21 carvedilol [From Coreg] Allergy Unknown Unknown Verified 05/30/17 01:21 losartan [Losartan] Allergy Unknown Unknown Verified 05/30/17 01:21 metformin Allergy Unknown Unknown Verified 05/30/17 01:21 olmesartan medoxomil * Allergy Unknown Unknown Verified 05/30/17 01:21 [From Benicar] - Social History Does the pt smoke?: No Smoking Status: Never smoker Does the pt drink ETOH?: Yes Does the pt have substance abuse?: No - Immunizations Immunizations are current?: Yes - POLST Patient has POLST: No PD ED PE NORMAL - Vitals Vital signs reviewed: Yes - General General: Alert and oriented X 3 - HEENT HEENT: Moist mucous membranes - Neck Neck: Supple, no meningeal sign - Derm Derm: Warm and dry - Extremities Extremities: Other (R foot - mild redness to the dorsum of the foot, near the 4th and 5th digits. appears to still be in the [place] from saturday. ) - Neuro Neuro: Alert and oriented X 3 - Psych Psych: Normal mood, Normal affect Results - Vitals Vitals: Vital Signs - 24 hr 08/19/17 11:03 Temperature 36.3 C L Heart Rate 93 Respiratory 18 Rate Blood Pressure 139/80 H O2 Saturation 96 Oxygen O2 Source Room air PD MEDICAL DECISION MAKING - ED course Complexity details: reviewed old records (prior ED visit), considered differential, d/w patient, d/w family ED course: Patient is an 82-year-old male who presents to the emergency department the right foot infection following a surgical procedure. Recommend that he follow- up closely with his doctor for repeat evaluation. As he is diabetic, will treat him with ciprofloxacin in addition to the Keflex. Patient counseled regarding signs and symptoms for which I believe and urgent re-evaluation would be necessary. Patient with good understanding of and agreement to plan and is comfortable going home at this time This document was made in part using voice recognition software. While efforts are made to proofread this document, sound alike and grammatical errors may occur. - Sepsis Event Vital Signs: Vital Signs - 24 hr 08/19/17 11:03 Temperature 36.3 C L Heart Rate 93 Respiratory 18 Rate Blood Pressure 139/80 H O2 Saturation 96 Oxygen O2 Source Room air Departure - Departure Disposition: 01 Home, Self Care Clinical Impression: Cellulitis Qualifiers: Site of cellulitis: extremity Site of cellulitis of extremity: lower extremity Laterality: right Qualified Code(s): L03.115 - Cellulitis of right lower limb Condition: Good Instructions: ED Infec Skin Cellulitis Follow-Up: Aleksandra Good DO [Primary Care Provider] - Within 3 Days Prescriptions: Ciprofloxacin HCl [Cipro] 500 mg PO BID #20 tablet Comments: Return if you worsen. Take the keflex and cipro until gone.
== END 2017-08-19 12:26 | disposition home or self-care (01) ==
LOC: ED 10:53
DX: L03.115 Cellulitis of right lower limb (principal); E11.9 Type 2 diabetes mellitus without complications; Z79.4 Long term (current) use of insulin; Z86.718 Personal history of other venous thrombosis and embolism; Z98.890 Other specified postprocedural states
CPT/HCPCS: 99283

== ENCOUNTER 2017-09-05 08:00 | Outpatient (CLI) | payer MEDICARE, OTHER ==
[2017-09-05 19:17] LABS: CALCIUM 8.8 mg/dL (8.5-10.3); CREATININE 1.3 mg/dL (0.6-1.2)
[2017-09-05 19:30] LABS: HB2 TOTAL 14.4 g/dL; HEMOGLOBIN A1C % 8.5 % (4.6-6.2)
== END 2017-09-05 08:01 | disposition home or self-care (01) ==
LOC: LAB.WCP 08:00
PROVIDERS: ATTEND Family Medicine
DX: E11.9 Type 2 diabetes mellitus without complications (principal)
CPT/HCPCS: 36415; 80048; 83036

== ENCOUNTER 2017-09-26 14:56 | Outpatient (CLI) | payer MEDICARE, OTHER ==
--- NOTE | 2017-09-27 09:34 | Ultrasound Report ---
Procedure Date: 09/26/2017 Accession Number: [id number] / [id number] Procedure: US - Duplex Lwr Ext Arterial RT CPT Code: FULL RESULT: EXAM: RIGHT LOWER EXTREMITY ARTERIAL DOPPLER ULTRASOUND EXAM DATE: 09/26/2017 05:11 PM. CLINICAL HISTORY: 82-year-old male with a nonhealing skin ulcer. COMPARISON: None. TECHNIQUE: Real-time sonographic vascular imaging was performed by the journeyman meat cutter, utilizing color-flow, Doppler flow, and spectral analysis. Multiple representative government relations static images were saved for review. FINDINGS: Vascular structures well seen throughout the right lower extremity without thrombosis, aneurysm or diminished blood flow. RIGHT LEG: SPED TEACHER: PSV 97 cm/sec. Triphasic waveform. PSFA:PSV 56 cm/sec. Triphasic waveform. MSFA:PSV 80 cm/sec. Triphasic waveform. DSFA:PSV 51 cm/sec. Triphasic waveform. PFA: PSV 58 cm/sec. Biphasic waveform. POP: PSV 45 cm/sec. Triphasic waveform. SHALONDA: PSV 62 cm/sec. Triphasic waveform. SHOP COORDINATOR: PSV 75 cm/sec. Triphasic waveform. PER: PSV 30 cm/sec. Monophasic waveform. DPA: PSV 52 cm/sec. Monophasic waveform. IMPRESSION: Normal arterial blood flow in the right lower extremity. No demonstrated cause for nonhealing skin ulcer. RADIA
== END 2017-09-26 14:57 | disposition home or self-care (01) ==
LOC: DI 14:56
PROVIDERS: ATTEND Family Medicine
DX: L98.499 Non-pressure chronic ulcer of skin of other sites with unspecified severity (principal)

== ENCOUNTER 2017-09-30 00:10 | Emergency (ER) | payer MEDICARE, OTHER ==
[2017-09-30] MEDS ORDERED: ACETAMINOPHEN 500 MG TABLET PO STA (00:32)
[2017-09-30 01:05] LABS: ALBUMIN 3.6 g/dL (3.2-5.5); ALBUMIN/GLOBULIN RATIO 1.1 (1.0-2.2); BILIRUBIN,TOTAL 0.9 mg/dL (0.2-1.0); CALCIUM 8.2 mg/dL (8.5-10.3); CREATININE 1.3 mg/dL (0.6-1.2); TOTAL PROTEIN 6.9 g/dL (6.7-8.2)
--- NOTE | 2017-09-30 01:37 | ED Physician Documentation ---
History of Present Illness - Stated complaint Stated Complaint: LATISHA LEG PAIN - Chief complaint Chief Complaint: Ext Problem - History obtained from History obtained from: Patient - Additonal information Additional information: 82-year-old male presents the emergency department for evaluation of bilateral leg pain which started this evening. The pain on the left leg is greater than the right. No swelling of the legs. The patient has no pain in the hip, knees or ankles. The patient reports increased pain below the knees. The patient has been able ambulate normally. No other area of injury. Symptoms are described as moderate when they occurred and now are mild. No other associated symptoms. No specific triggering factors Review of Systems Constitutional: denies: Fever, Chills Eyes: denies: Loss of vision Ears: denies: Loss of hearing Nose: denies: Congestion Throat: denies: Sore throat Cardiac: denies: Chest pain / pressure Respiratory: denies: Dyspnea GI: denies: Abdominal Pain : denies: Dysuria Skin: denies: Rash Musculoskeletal: reports: Extremity pain. denies: Joint pain, Extremity swelling Neurologic: denies: Generalized weakness, Numbness PD PAST MEDICAL HISTORY - Past Medical History Cardiovascular: Deep vein thrombosis Respiratory: Asthma, COPD, Pneumonia, Tuberculosis, Other Endocrine/Autoimmune: Type 2 diabetes GI: GERD : None HEENT: Other Psych: Anxiety Musculoskeletal: None Derm: Herpes zoster - Past Surgical History Past Surgical History: Yes General: Colonoscopy, EGD Ortho: Knee replacement, Arthroscopic surgery, Other - Present Medications Home Medications: Ambulatory Orders Medication Instructions Recorded Confirmed Fluticasone/Salmeterol [Advair 1 puffs ORAL BID 07/30/13 12/05/16 250-50 Diskus] Insulin Glargine [Lantus] 30 units SUBQ DAILY 07/30/13 12/05/16 Ipratropium/Albuterol [Combivent 1 puffs ORAL BID 07/30/13 12/05/16 Respimat] Levothyroxine [Synthroid] 100 mcg PO QDAC 07/30/13 12/05/16 Montelukast [Singulair] 10 tab ORAL DAILY 07/30/13 12/05/16 Apixaban [Eliquis] 5 mg PO DAILY 02/16/16 12/05/16 Albuterol Sulfate [Proair Hfa 1 - 2 puffs INH Q4H 05/30/17 Inhaler] Cholecalciferol (Vitamin D3) 2,000 unit PO DAILY 05/30/17 [Vitamin D3] Ferrous Sulfate 325 mg PO DAILY 05/30/17 05/30/17 Glimepiride 1 mg PO DAILY 05/30/17 Latanoprost 0.005% Ophth Drops 1 drops EACHEYE DAILY 05/30/17 [Xalatan Ophth Drops] Bacitracin 1 applic TOP BID #1 oint...g. 08/17/17 Cephalexin [Keflex] 500 mg PO Q6H 7 Days capsule 08/17/17 Ciprofloxacin HCl [Cipro] 500 mg PO BID #20 tablet 08/19/17 - Allergies Allergies/Adverse Reactions: Allergies Allergy/AdvReac Type Severity Reaction Status Date / Time JANNY Inhibitors Allergy Intermediate Unknown Verified 05/30/17 01:21 lovastatin Allergy Intermediate Headache Verified 05/30/17 01:21 tiotropium bromide * Allergy Intermediate Respiratory Verified 05/30/17 01:21 [From Spiriva with HandiHaler] azithromycin [From Zithromax] Allergy Unknown Unknown Verified 05/30/17 01:21 carvedilol [From Coreg] Allergy Unknown Unknown Verified 05/30/17 01:21 losartan [Losartan] Allergy Unknown Unknown Verified 05/30/17 01:21 metformin Allergy Unknown Unknown Verified 05/30/17 01:21 olmesartan medoxomil * Allergy Unknown Unknown Verified 05/30/17 01:21 [From Benicar] - Social History Does the pt smoke?: No Smoking Status: Never smoker Does the pt drink ETOH?: Yes Does the pt have substance abuse?: No - Immunizations Immunizations are current?: Yes - POLST Patient has POLST: No PD ED PE NORMAL - General General: Alert and oriented X 3, No acute distress - HEENT HEENT: Atraumatic, PERRL, EOMI, Ears normal - Cardiac Cardiac: RRR - Respiratory Respiratory: No respiratory distress - Derm Derm: Normal color - Extremities Extremities: Other (The patient has full active range of motion of bilateral hips, knees and ankles. There is no edema of the lower extremities. The patient is tender to palpation below the knee in the posterior soft tissue. The patient has equal dorsalis pedis pulses. There is normal cap refill bilaterally. The patient's temperature is equal bilaterally in the lower extremities. There is no evidence of cellulitis. There is no crepitus. There is no abscess.The patient has full active range of motion of bilateral hips, knees and ankles. There is no edema of the lower extremities. The patient is tender to palpation below the knee in the posterior soft tissue. The patient has equal dorsalis pedis pulses. There is normal cap refill bilaterally. The patient's temperature is equal bilaterally in the lower extremities. There is no evidence of cellulitis. There is no crepitus. There is no abscess.) - Neuro Neuro: Alert and oriented X 3, Normal speech - Psych Psych: Normal mood Results - Vitals Vitals: Vital Signs - 24 hr 09/30/17 09/30/17 00:17 02:23 Temperature 36.6 C Heart Rate 80 79 Respiratory 20 18 Rate Blood Pressure 152/97 H 164/90 H O2 Saturation 98 98 Oxygen O2 Source Room air - Labs Labs: Laboratory Tests 09/30/17 09/30/17 09/30/17 00:45 00:45 00:45 Sodium 127 L Potassium 4.0 Chloride 95 L Carbon Dioxide 25 Anion Gap 7.0 BUN 20 Creatinine 1.3 H Estimated GFR (MDRD) 53 L Glucose 105 H Calcium 8.2 L Magnesium 2.0 Total Bilirubin 0.9 AST 18 ALT 17 Alkaline Phosphatase 46 Total Creatine Kinase 164 CK-MB (CK-2) 2.9 Total Protein 6.9 Albumin 3.6 Globulin 3.3 Albumin/Globulin Ratio 1.1 Lipase 41 PD MEDICAL DECISION MAKING - ED course ED course: The patient's workup does not reveal any acute abnormality that would necessitate admission to the hospital. The patient's kidney function appears to be at his baseline, the patient has chronic hyponatremia and there is no acute changes. I discussed the findings with the patient and he understands and agrees. I recommended that the patient follow-up with primary care for further workup and evaluation of the findings. The patient understands and agrees. I discussed warning signs and recommended returning to the emergency department immediately for worsening or any concerns. - Sepsis Event Vital Signs: Vital Signs - 24 hr 09/30/17 09/30/17 00:17 02:23 Temperature 36.6 C Heart Rate 80 79 Respiratory 20 18 Rate Blood Pressure 152/97 H 164/90 H O2 Saturation 98 98 Oxygen O2 Source Room air Departure - Departure Disposition: 01 Home, Self Care Clinical Impression: Leg pain Qualifiers: Laterality: bilateral Qualified Code(s): M79.604 - Pain in right leg Popliteal cyst Qualifiers: Laterality: left Qualified Code(s): M71.22 - Synovial cyst of popliteal space [ More[place]], left knee Condition: Good Instructions: Cyst Popliteal Follow-Up: Aleksandra Good DO [Primary Care Provider] - Within 1 week Comments: Please return to the emergency department for worsening symptoms or any concerns
[2017-09-30 02:24] VITALS: BP 164/90
--- NOTE | 2017-09-30 02:52 | Ultrasound Report ---
Procedure Date: 09/30/2017 Accession Number: [id number] / [id number] Procedure: US - Duplex Ext Veins Bilateral CPT Code: FULL RESULT: EXAM: BILATERAL LOWER EXTREMITY VENOUS ULTRASOUND EXAM DATE: 09/30/2017 01:46 AM. CLINICAL HISTORY: Leg pain swelling. COMPARISON: 05/30/2017 and 12/05/2016. TECHNIQUE: Real-time sonographic vascular imaging was performed by the ton container shipper through the lower extremities utilizing both color-flow and Doppler spectral analysis. Multiple personal service representative static images were saved for review. FINDINGS: Right: Common Femoral Vein (CFV): Normal. CFV-GSV Junction: Normal. Profunda Femoral Vein (PFV): Normal. Femoral Vein (FV) Prox: Normal. Femoral Vein (FV) Mid: Normal. Femoral Vein (FV) Dist: Normal. Popliteal Vein: Normal. Posterior Tibial Veins: Normal where seen. Peroneal Veins: Not well seen. Left: Common Femoral Vein (CFV): Normal. CFV-GSV Junction: Normal. Profunda Femoral Vein (PFV): Normal. Femoral Vein (FV) Prox: Normal. Femoral Vein (FV) Mid: Normal. Femoral Vein (FV) Dist: Normal. Popliteal Vein: Normal. Posterior Tibial Veins: Normal where seen. Peroneal Veins: Not well seen. Other: Left popliteal fossa cyst measuring 5.2 x 1.5 x 1.8 cm. IMPRESSION: 1. No evidence for deep venous thrombosis bilaterally. 2. Left popliteal fossa cyst measuring 5.2 x 1.5 x 1.8 cm. RADIA
== END 2017-09-30 03:11 | disposition home or self-care (01) ==
LOC: ED 00:10
DX: M79.604 Pain in right leg (principal); M71.22 Synovial cyst of popliteal space [Baker], left knee; E11.9 Type 2 diabetes mellitus without complications; Z79.4 Long term (current) use of insulin; Z86.718 Personal history of other venous thrombosis and embolism; Z96.659 Presence of unspecified artificial knee joint
CPT/HCPCS: 36415; 80053; 82550; 82553; 83690; 83735; 93970; 99283; A9270

== ENCOUNTER 2017-10-04 10:03 | Outpatient (CLI) | payer MEDICARE, OTHER ==
--- NOTE | 2017-10-04 13:04 | XRAY Report ---
Procedure Date: 10/04/2017 Accession Number: [id number] / [id number] Procedure: XR - Knee 3 View LT CPT Code: FULL RESULT: EXAM: LEFT KNEE RADIOGRAPHY EXAM DATE: 10/04/2017 10:23 AM. CLINICAL HISTORY: Knee pain, left. COMPARISON: None. TECHNIQUE: 3 views. FINDINGS: Bones: Normal. No fractures or bone lesions. Joints: Tricompartmental joint space loss which is most pronounced in the medial femorotibial compartment where there is [id number] contact. There is a small joint effusion. Soft Tissues: Normal. No soft tissue swelling. IMPRESSION: Advanced degenerative changes as described. RADIA
== END 2017-10-04 10:04 | disposition home or self-care (01) ==
LOC: DI 10:03
PROVIDERS: ATTEND Family Medicine
DX: M17.12 Unilateral primary osteoarthritis, left knee (principal)

== ENCOUNTER 2018-01-22 09:53 | Emergency (ER) | payer MEDICARE, OTHER ==
[2018-01-22 10:09] VITALS: BP 145/83
--- NOTE | 2018-01-22 11:29 | ED Physician Documentation ---
PD HPI URI - Stated complaint Stated Complaint: CONGESTION/COUGH - Chief complaint Chief Complaint: Resp - History obtained from History obtained from: Patient, Family - History of Present Illness Timing - onset: How many weeks ago (2) Timing duration: Weeks (2) Timing details: Gradual onset, Still present, Waxing and waning Associated symptoms: Nasal congestion, Rhinorrhea, Sore throat, Productive cough, Dyspnea Improves by: Rest, Medication Worsened by: Activity Similar symptoms before: Diagnosis (bronchitis/pneumonia asbestosis) Recently seen: Clinic - Additional information Additional information: 82-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 He has had multiple infections and is had antibiotics numerous times and he feels that he needs a different antibiotic that will help with this. He has taken Levaquin once previously that he remembers worked well. Review of Systems Constitutional: reports: Fatigue. denies: Fever Eyes: denies: Decreased vision Ears: denies: Ear pain Nose: reports: Congestion Throat: denies: Sore throat Cardiac: denies: Chest pain / pressure, Palpitations, Pedal edema, Calf pain Respiratory: reports: Dyspnea, Cough, Wheezing GI: denies: Abdominal Pain, Nausea, Vomiting : denies: Dysuria, Frequency PD PAST MEDICAL HISTORY - Past Medical History Cardiovascular: Deep vein thrombosis Respiratory: Asthma, COPD, Pneumonia, Tuberculosis, Other Endocrine/Autoimmune: Type 2 diabetes GI: GERD : None HEENT: Other Psych: Anxiety Musculoskeletal: None Derm: Herpes zoster - Past Surgical History Past Surgical History: Yes General: Colonoscopy, EGD Ortho: Knee replacement, Arthroscopic surgery, Other - Present Medications Home Medications: Ambulatory Orders Medication Instructions Recorded Confirmed Fluticasone/Salmeterol [Advair 1 puffs ORAL BID 07/30/13 12/05/16 250-50 Diskus] Insulin Glargine [Lantus] 30 units SUBQ DAILY 07/30/13 12/05/16 Ipratropium/Albuterol [Combivent 1 puffs ORAL BID 07/30/13 12/05/16 Respimat] Levothyroxine [Synthroid] 100 mcg PO QDAC 07/30/13 12/05/16 Montelukast [Singulair] 10 tab ORAL DAILY 07/30/13 12/05/16 Apixaban [Eliquis] 5 mg PO DAILY 02/16/16 12/05/16 Albuterol Sulfate [Proair Hfa 1 - 2 puffs INH Q4H 05/30/17 Inhaler] Cholecalciferol (Vitamin D3) 2,000 unit PO DAILY 05/30/17 [Vitamin D3] Ferrous Sulfate 325 mg PO DAILY 05/30/17 05/30/17 Glimepiride 1 mg PO DAILY 05/30/17 Latanoprost 0.005% Ophth Drops 1 drops EACHEYE DAILY 05/30/17 [Xalatan Ophth Drops] Bacitracin 1 applic TOP BID #1 oint...g. 08/17/17 Cephalexin [Keflex] 500 mg PO Q6H 7 Days capsule 08/17/17 Ciprofloxacin HCl [Cipro] 500 mg PO BID #20 tablet 08/19/17 Levofloxacin [Levaquin] 500 mg PO DAILY #10 tablet 01/22/18 - Allergies Allergies/Adverse Reactions: Allergies Allergy/AdvReac Type Severity Reaction Status Date / Time JANNY Inhibitors Allergy Intermediate Unknown Verified 01/22/18 10:05 lovastatin Allergy Intermediate Headache Verified 01/22/18 10:05 tiotropium bromide * Allergy Intermediate Respiratory Verified 01/22/18 10:05 [From Spiriva with HandiHaler] azithromycin [From Zithromax] Allergy Unknown Unknown Verified 01/22/18 10:05 carvedilol [From Coreg] Allergy Unknown Unknown Verified 01/22/18 10:05 losartan [Losartan] Allergy Unknown Unknown Verified 01/22/18 10:05 metformin Allergy Unknown Unknown Verified 01/22/18 10:05 olmesartan medoxomil * Allergy Unknown Unknown Verified 01/22/18 10:05 [From Benicar] - Social History Does the pt smoke?: No Smoking Status: Never smoker Does the pt drink ETOH?: Yes Does the pt have substance abuse?: No - Immunizations Immunizations are current?: Yes - POLST Patient has POLST: No PD ED PE NORMAL - Vitals Vital signs reviewed: Yes (hypertensive ) - General General: Alert and oriented X 3, No acute distress, Well developed/nourished, Other (hard of hearing ) - HEENT HEENT: Atraumatic, PERRL, EOMI, Other (minimal inflamtion to the left ) - Neck Neck: Supple, no meningeal sign, No bony TTP - Cardiac Cardiac: RRR, No murmur - Respiratory Respiratory: No respiratory distress, Other (bibasilar wheeze is mild air move ment is fair. 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[employer] 2-12 intact, No motor deficit, No sensory deficit, Normal speech Eye Opening: Spontaneous Motor: Obeys Commands Verbal: Oriented GCS Score: 15 - Psych Psych: Normal mood, Normal affect Results - Vitals Vitals: Vital Signs - 24 hr 01/22/18 10:00 Temperature 36.3 C L Heart Rate 93 Respiratory 20 Rate Blood Pressure 145/83 H O2 Saturation 98 Oxygen O2 Source Room air PD MEDICAL DECISION MAKING - ED course Complexity details: considered differential, d/w patient, d/w family ED course: 82 y/o male with asbestosis and frequent infection is requesting antibiotic and we will place him on a course of levaquin and have him follow up locally . Departure - Departure Disposition: 01 Home, Self Care Clinical Impression: Bronchitis Instructions: ED Upper Resp Infec Abx Tx Follow-Up: Edgardo Malhotra MD [Provider Admit Priv/Credential] - Prescriptions: Levofloxacin [Levaquin] 500 mg PO DAILY #10 tablet
== END 2018-01-22 11:36 | disposition home or self-care (01) ==
LOC: ED 09:53
DX: J40 Bronchitis, not specified as acute or chronic (principal); E11.9 Type 2 diabetes mellitus without complications; Z79.4 Long term (current) use of insulin; Z86.718 Personal history of other venous thrombosis and embolism; Z96.659 Presence of unspecified artificial knee joint; Z86.11 Personal history of tuberculosis
CPT/HCPCS: 99283

== ENCOUNTER 2018-01-25 12:45 | Outpatient (CLI) | payer MEDICARE, OTHER ==
--- NOTE | 2018-01-25 22:13 | XRAY Report ---
Reason: ASBESTOSIS Procedure Date: 01/25/2018 Accession Number: [id number] / [id number] Procedure: XR - Chest 2 View X-Ray CPT Code: 56186 FULL RESULT: EXAM: CHEST RADIOGRAPHY EXAM DATE: 01/25/2018 01:27 PM. CLINICAL HISTORY: ASBESTOSIS. COMPARISON: CHEST 2 VIEW 02/24/2017 1:24 PM CHEST ANGIO 11/08/2015 3:26 PM. TECHNIQUE: 2 views. FINDINGS: Lungs/Pleura: Mild right base lateral interstitial fibrosis appears similar to the prior. Moderate right base pleural calcification again noted. No consolidation or pleural effusion. No pneumothorax. Mediastinum: Heart and mediastinal contours are unremarkable. IMPRESSION: No acute findings are seen. Mild right base lateral interstitial fibrosis appears similar to the prior. Moderate right base pleural calcification again noted. RADIA
== END 2018-01-25 12:46 | disposition home or self-care (01) ==
LOC: DI 12:45
PROVIDERS: ATTEND Family Medicine
DX: J84.10 Pulmonary fibrosis, unspecified (principal); J94.8 Other specified pleural conditions; J61 Pneumoconiosis due to asbestos and other mineral fibers
CPT/HCPCS: 71046

== ENCOUNTER 2018-05-04 07:05 | Emergency (ER) | payer MEDICARE, OTHER ==
--- NOTE | 2018-05-04 07:15 | ED Physician Documentation ---
History of Present Illness - Stated complaint Stated Complaint: COUGH - History obtained from History obtained from: Patient - History of Present Illness Pain level max: 5 - Additonal information Additional information: Patient is a 83-year-old male with complicated past history including multiple lung pathology such as TB, COPD, asbestosis, pneumonia and other complications. Patient is seen frequently for COPD, pneumonia, bronchitis, and other issues. It is unclear how long his current symptoms have been going on, likely waxing and waning for some time. Patient notes that he has been taken off of several medications, but produces a bottle of Augmentin that he was prescribed for the past several days, although he has been taking it not completely. Patient denies fever, chills, but admits to chest discomfort when coughing and produces a mildly productive cough. Patient also notes generalized difficulty breathing. Patient also has history of DVT, but states no new calf pain or swelling. Patient feels that theAugmentin makes his symptoms worse. No particular factors make his symptoms better. Patient also reports previous use of oxygen and CPAP at home, but have reportedly been taken off of those therapies by a physician.Patient is on anticoagulation of Eliquis. Review of Systems Ten Systems: 10 systems reviewed and negative Constitutional: denies: Fever Cardiac: reports: Chest pain / pressure Respiratory: reports: Dyspnea PD PAST MEDICAL HISTORY - Past Medical History Cardiovascular: Deep vein thrombosis Respiratory: Asthma, COPD, Pneumonia, Tuberculosis, Other Endocrine/Autoimmune: Type 2 diabetes GI: GERD : None HEENT: Other Psych: Anxiety Musculoskeletal: None Derm: Herpes zoster - Past Surgical History Past Surgical History: Yes General: Colonoscopy, EGD Ortho: Knee replacement, Arthroscopic surgery, Other - Present Medications Home Medications: Ambulatory Orders Medication Instructions Recorded Confirmed Fluticasone/Salmeterol [Advair 1 puffs ORAL BID 07/30/13 12/05/16 250-50 Diskus] Insulin Glargine [Lantus] 30 units SUBQ DAILY 07/30/13 12/05/16 Ipratropium/Albuterol [Combivent 1 puffs ORAL BID 07/30/13 12/05/16 Respimat] Levothyroxine [Synthroid] 100 mcg PO QDAC 07/30/13 12/05/16 RX: Montelukast [Singulair] 10 tab ORAL DAILY 07/30/13 12/05/16 Apixaban [Eliquis] 5 mg PO DAILY 02/16/16 12/05/16 Albuterol Sulfate [Proair Hfa 1 - 2 puffs INH Q4H 05/30/17 Inhaler] Cholecalciferol (Vitamin D3) 2,000 unit PO DAILY 05/30/17 [Vitamin D3] RX: Ferrous Sulfate 325 mg PO DAILY 05/30/17 05/30/17 RX: Glimepiride 1 mg PO DAILY 05/30/17 RX: Latanoprost 0.005% Ophth Drops 1 drops EACHEYE DAILY 05/30/17 [Xalatan Ophth Drops] Cephalexin [Keflex] 500 mg PO Q6H 7 Days capsule 08/17/17 RX: Bacitracin 1 applic TOP BID #1 oint...g. 08/17/17 Ciprofloxacin HCl [Cipro] 500 mg PO BID #20 tablet 08/19/17 Levofloxacin [Levaquin] 500 mg PO DAILY #10 tablet 01/22/18 Levofloxacin [Levaquin] 750 mg PO DAILY #5 tablet 05/04/18 RX: predniSONE [Prednisone] 60 mg PO DAILY 5 Days #15 tablet 05/04/18 - Allergies Allergies/Adverse Reactions: Allergies Allergy/AdvReac Type Severity Reaction Status Date / Time JANNY Inhibitors Allergy Intermediate Unknown Verified 05/04/18 07:21 lovastatin Allergy Intermediate Headache Verified 05/04/18 07:21 tiotropium bromide * Allergy Intermediate Respiratory Verified 05/04/18 07:21 [From Spiriva with HandiHaler] azithromycin [From Zithromax] Allergy Unknown Unknown Verified 05/04/18 07:21 carvedilol [From Coreg] Allergy Unknown Unknown Verified 05/04/18 07:21 losartan [Losartan] Allergy Unknown Unknown Verified 05/04/18 07:21 metformin Allergy Unknown Unknown Verified 05/04/18 07:21 olmesartan medoxomil * Allergy Unknown Unknown Verified 05/04/18 07:21 [From Benicar] sitagliptin [From Januvia] Allergy Unknown Verified 05/04/18 07:21 - Social History Does the pt smoke?: No Smoking Status: Never smoker Does the pt drink ETOH?: Yes Does the pt have substance abuse?: No - Immunizations Immunizations are current?: Yes - POLST Patient has POLST: No PD ED PE NORMAL - General General: Alert and oriented X 3, No acute distress, Well developed/nourished, Other (Speaking in full sentences) - HEENT HEENT: Atraumatic, Moist mucous membranes - Neck Neck: Supple, no meningeal sign - Cardiac Cardiac: RRR, No murmur - Respiratory Respiratory: No respiratory distress, Other (No labored breathing or accessory muscle use. Diminished lung sounds bilaterally, worse in bases with occasional expiratory wheeze present scattered throughout.) - Abdomen Abdomen: Soft, Non tender, Non distended - Extremities Extremities: No edema, No calf tenderness / cord - Psych Psych: Normal mood, Normal affect Results - Vitals Vitals: Vital Signs - 24 hr 05/04/18 05/04/18 05/04/18 07:17 08:05 09:32 Temperature 36.0 C L 36.2 C L Heart Rate 90 86 98 Respiratory 22 14 20 Rate Blood Pressure 119/82 H 122/83 H O2 Saturation 94 96 Oxygen O2 Source Room air - EKG (time done) 0721 Rate: Rate (enter#) (90) Rhythm: NSR Intervals: RBBB Compare to prior EKG: Other (Similar to previous. Previous performed in 2016 with slight changes of right bundle branch block present, but not as pronounced as today.) - Labs Labs: Laboratory Tests 05/04/18 05/04/18 05/04/18 07:35 07:35 07:35 WBC 8.7 RBC 4.62 L Hgb 14.1 Hct 41.3 L MCV 89.3 MCH 30.4 MCHC 34.1 RDW 13.4 Plt Count 261 MPV 7.3 L Neut # (Auto) 5.8 Lymph # (Auto) 1.6 [place] # (Auto) 0.9 Eos # (Auto) 0.3 Baso # (Auto) 0.1 Absolute Nucleated RBC 0.01 Nucleated RBC % 0.1 Sodium 127 L Potassium 4.1 Chloride 95 L Carbon Dioxide 24 Anion Gap 8.0 BUN 24 H Creatinine 1.4 H Estimated GFR (MDRD) 48 L Glucose 181 H Calcium 8.2 L Troponin I < 0.04 Influenza A (Rapid) Influenza B (Rapid) 05/04/18 07:55 WBC RBC Hgb Hct MCV MCH MCHC RDW Plt Count MPV Neut # (Auto) Lymph # (Auto) [place] # (Auto) Eos # (Auto) Baso # (Auto) Absolute Nucleated RBC Nucleated RBC % Sodium Potassium Chloride Carbon Dioxide Anion Gap BUN Creatinine Estimated GFR (MDRD) Glucose Calcium Troponin I Influenza A (Rapid) Negative Influenza B (Rapid) Negative PD MEDICAL DECISION MAKING - ED course Complexity details: reviewed old records, re-evaluated patient, considered differential, d/w patient, d/w family ED course: Patient has complicated past pulmonary history, but feel that today's symptoms are likely related to his more basic issues like COPD, URI, or bronchitis, or other viral illness. Also considered other etiologies like TB, asbestosis, fungal infections, pneumonia and obtained chest x-ray, but feel that these pathologies are less likely. Also feel that patient's chest discomfort is related to his underlying lung pathology as opposed to a PE, particularly as he is on anticoagulation, or cardiac pathology such as ACS, myocardial infarction, unstable angina. Did obtain EKG which did not show acute ischemic changes. Also obtain screening lab work, including troponin, which returned relatively unremarkable. Given patient's pulmonary exam, patient received both steroids and DuoNeb. Also obtained viral screening to further evaluate for possible influenza.Patient is not happy with his Augmentin prescription and has been taking it not completely. At this time, do not feel it is imperative for him to continue and recommended he speak further with his primary care physician who prescribed this medication regarding it.Lab work returned without acute changes or changes that are dissimilar to previous measurements. Troponin is negative. Influenza testing is negative. Chest x-ray does not reveal any pneumonia or other acute complication. Advised patient and his results and recommendations including treatment for COPD exacerbation. Also discussed other supportive cares, return precautions, and appropriate follow-up. Both voiced understanding and are comfortable with discharge plan. Departure - Departure Disposition: 01 Home, Self Care Clinical Impression: Moderate COPD (chronic obstructive pulmonary disease) Condition: Good Instructions: COPD Dc Follow-Up: Edgardo Malhotra MD [Primary Care Provider] - Within 3 Days Prescriptions: Levofloxacin [Levaquin] 750 mg PO DAILY #5 tablet RX: predniSONE [Prednisone] 60 mg PO DAILY 5 Days #15 tablet Comments: Please continue all home medications as previously instructed. Please use Levaquin and prednisone as instructed to help with COPD. Follow-up with primary care physician in next 2-3 days and return to ED sooner if experience worsening symptoms or other concerns. Discharge Date/Time: 05/04/18:33
[2018-05-04] MEDS ORDERED: IPRATROPIUM/ALBUTEROL 3 ML NEB INH STA (07:27)
[2018-05-04] MEDS ORDERED: methylPREDNISolone SUCCINATE 125 MG/2 ML VIAL IVP STA (07:28)
[2018-05-04 07:50] LABS: BASOPHILS # (AUTO) 0.1 10^3/uL (0.0-0.1); BASOPHILS % (AUTO) 1.2 %; EOSINOPHILS # (AUTO) 0.3 10^3/uL (0.0-0.7); EOSINOPHILS % (AUTO) 2.9 %; HGB - HEMOGLOBIN 14.1 g/dL (14.0-18.0); LYMPHOCYTES # (AUTO) 1.6 10^3/uL (1.5-3.5); LYMPHOCYTES % (AUTO) 18.3 %; MEAN CORPUSCULAR HEMOGLOBIN 30.4 pg (27.0-31.0); MEAN CORPUSCULAR HGB CONC 34.1 g/dL (32.0-36.0); MEAN CORPUSCULAR VOLUME 89.3 fL (80.0-94.0); MEAN PLATELET VOLUME 7.3 fL (7.4-11.4); MONOCYTES # (AUTO) 0.9 10^3/uL (0.0-1.0); MONOCYTES % (AUTO) 10.9 %; NEUTROPHILS # (AUTO) 5.8 10^3/uL (1.5-6.6); NEUTROPHILS % (AUTO) 66.7 %; PLT - PLATELET COUNT 261 10^3/uL (130-450); RED BLOOD COUNT 4.62 10^6/uL (4.70-6.10); RED CELL DISTRIBUTION WIDTH 13.4 % (12.0-15.0); WHITE BLOOD COUNT 8.7 x10^3/uL (4.8-10.8)
[2018-05-04 08:03] LABS: CALCIUM 8.2 mg/dL (8.5-10.3); CREATININE 1.4 mg/dL (0.6-1.2)
--- NOTE | 2018-05-04 08:37 | XRAY Report ---
Reason: cough, hx of TB, asbestos, PNA Procedure Date: 05/04/2018 Accession Number: [id number] / [id number] Procedure: XR - Chest 2 View X-Ray CPT Code: 90486 FULL RESULT: EXAM: CHEST RADIOGRAPHY EXAM DATE: 05/04/2018 07:48 AM. CLINICAL HISTORY: Cough, hx of TB, asbestos, PNA. COMPARISON: CHEST 2 VIEW 01/25/2018 1:19 PM. TECHNIQUE: 2 views. FINDINGS: Lungs/Pleura: Mild bronchial wall thickening again noted centrally. Small amount of reticulation at the lung bases. No new focal consolidation. No pleural effusion. No pneumothorax. Mediastinum: Cardiac silhouette size appears stable. Atherosclerotic vascular calcification. Other: Degenerative change of the spine. IMPRESSION: 1. Mild bronchial wall thickening centrally, suggesting airways disease, which can be seen on an acute or chronic basis in the proper settings. 2. Mild reticular opacity at the lung bases, which may reflect atelectasis, scar, or mild pneumonitis. No lobar consolidation or pleural effusions. RADIA
[2018-05-04 09:33] VITALS: BP 122/83
== END 2018-05-04 09:33 | disposition home or self-care (01) ==
LOC: ED 07:05
DX: J44.1 Chronic obstructive pulmonary disease with (acute) exacerbation (principal); I45.10 Unspecified right bundle-branch block; E11.9 Type 2 diabetes mellitus without complications; Z79.4 Long term (current) use of insulin; Z86.718 Personal history of other venous thrombosis and embolism; Z79.01 Long term (current) use of anticoagulants; Z86.11 Personal history of tuberculosis
CPT/HCPCS: 36415; 71046; 80048; 84484; 85025; 87275; 87276; 93005; 94640; 96374; 99283; 99284

== ENCOUNTER 2018-05-21 02:18 | Emergency (ER) | payer MEDICARE, OTHER ==
[2018-05-21] MEDS ORDERED: DEXAMETHASONE 10 MG/ML VIAL PO STA (02:41)
[2018-05-21] MEDS ORDERED: ALBUTEROL NEB 2.5 MG/3 ML INH STA (02:41)
[2018-05-21] MEDS ORDERED: DOXYCYCLINE 100 MG TABLET PO STA (02:42)
[2018-05-21] MEDS ORDERED: traMADol 50 MG TABLET PO STA (02:42)
--- NOTE | 2018-05-21 03:10 | ED Physician Documentation ---
PD HPI DYSPNEA - Stated complaint Stated Complaint: SOA - Chief complaint Chief Complaint: Resp - History obtained from History obtained from: Patient, Family - History of Present Illness Timing - onset: How many days ago (several days progressive dyspnea over baseline.) Timing - onset during: Light activity Timing - duration: Days Timing - details: Gradual onset, Still present Inciting event(s): URI (has had increased cough and some sputum production. No fevers.) Improved by: Inhaler/neb (but not consistent) Associated symptoms: Cough, Wheezing, Chest pain / discomfort (with cough). No: Fever, Hemoptysis, Bilateral edema Similar symptoms before: Diagnosis (restrictive and obstructive lung disease) Review of Systems Constitutional: denies: Fever Nose: reports: Congestion. denies: Rhinorrhea / runny nose Throat: denies: Sore throat Cardiac: reports: Chest pain / pressure (today with coughing). denies: Palpitations Respiratory: reports: Dyspnea, Cough, Wheezing GI: denies: Abdominal Pain, Nausea, Vomiting, Diarrhea Neurologic: reports: Generalized weakness. denies: Focal weakness, Numbness PD PAST MEDICAL HISTORY - Past Medical History Past Medical History: Yes Cardiovascular: Deep vein thrombosis Respiratory: Asthma, COPD, Pneumonia, Tuberculosis, Other Endocrine/Autoimmune: Type 2 diabetes GI: GERD : None HEENT: Other Psych: Anxiety Musculoskeletal: None Derm: Herpes zoster - Past Surgical History Past Surgical History: Yes General: Colonoscopy, EGD Ortho: Knee replacement, Arthroscopic surgery, Other - Present Medications Home Medications: Ambulatory Orders Medication Instructions Recorded Confirmed Fluticasone/Salmeterol [Advair 1 puffs ORAL BID 07/30/13 12/05/16 250-50 Diskus] Insulin Glargine [Lantus] 30 units SUBQ DAILY 07/30/13 12/05/16 Ipratropium/Albuterol [Combivent 1 puffs ORAL BID 07/30/13 12/05/16 Respimat] Levothyroxine [Synthroid] 100 mcg PO QDAC 07/30/13 12/05/16 Montelukast [Singulair] 10 tab ORAL DAILY 07/30/13 12/05/16 Apixaban [Eliquis] 5 mg PO DAILY 02/16/16 12/05/16 Albuterol Sulfate [Proair Hfa 1 - 2 puffs INH Q4H 05/30/17 Inhaler] Cholecalciferol (Vitamin D3) 2,000 unit PO DAILY 05/30/17 [Vitamin D3] Ferrous Sulfate 325 mg PO DAILY 05/30/17 05/30/17 Glimepiride 1 mg PO DAILY 05/30/17 Latanoprost 0.005% Ophth Drops 1 drops EACHEYE DAILY 05/30/17 [Xalatan Ophth Drops] Bacitracin 1 applic TOP BID #1 oint...g. 08/17/17 Cephalexin [Keflex] 500 mg PO Q6H 7 Days capsule 08/17/17 Ciprofloxacin HCl [Cipro] 500 mg PO BID #20 tablet 08/19/17 Levofloxacin [Levaquin] 500 mg PO DAILY #10 tablet 01/22/18 Levofloxacin [Levaquin] 750 mg PO DAILY #5 tablet 05/04/18 predniSONE [Prednisone] 60 mg PO DAILY 5 Days #15 tablet 05/04/18 Benzonatate [Tessalon Perle] 100 mg PO TID PRN #25 capsule 05/21/18 Dexamethasone [Decadron] 4 mg PO DAILY #5 tablet 05/21/18 Doxycycline Hyclate 100 mg PO BID #14 capsule 05/21/18 Tramadol HCl 50 mg PO Q6H PRN #15 tablet 05/21/18 - Allergies Allergies/Adverse Reactions: Allergies Allergy/AdvReac Type Severity Reaction Status Date / Time JANNY Inhibitors Allergy Intermediate Unknown Verified 05/04/18 07:21 lovastatin Allergy Intermediate Headache Verified 05/04/18 07:21 tiotropium bromide * Allergy Intermediate Respiratory Verified 05/04/18 07:21 [From Spiriva with HandiHaler] azithromycin [From Zithromax] Allergy Unknown Unknown Verified 05/04/18 07:21 carvedilol [From Coreg] Allergy Unknown Unknown Verified 05/04/18 07:21 losartan [Losartan] Allergy Unknown Unknown Verified 05/04/18 07:21 metformin Allergy Unknown Unknown Verified 05/04/18 07:21 olmesartan medoxomil * Allergy Unknown Unknown Verified 05/04/18 07:21 [From Benicar] sitagliptin [From Januvia] Allergy Unknown Verified 05/04/18 07:21 - Social History Does the pt smoke?: No Smoking Status: Never smoker Does the pt drink ETOH?: Yes Does the pt have substance abuse?: No - Immunizations Immunizations are current?: Yes - POLST Patient has POLST: No PD ED PE NORMAL - Vitals Vital signs reviewed: Yes - General General: Alert and oriented X 3, No acute distress, Well developed/nourished - HEENT HEENT: Pharynx benign - Neck Neck: Supple, no meningeal sign, No adenopathy - Cardiac Cardiac: RRR, No murmur - Respiratory Respiratory: No respiratory distress. No: Clear bilaterally (some fine crackles at bases both sides. Mild exp wheezing. No coarse wet sounds. ) - Abdomen Abdomen: Soft, Non tender - Derm Derm: Normal color, Warm and dry - Extremities Extremities: No tenderness to palpate, No edema, No calf tenderness / cord - Neuro Neuro: Alert and oriented X 3, No motor deficit, Normal speech - Psych Psych: No: Normal mood (grumpy) Results - Vitals Vitals: Vital Signs - 24 hr 05/21/18 05/21/18 05/21/18 02:23 02:27 02:55 Temperature 36.6 C Heart Rate 85 84 77 Respiratory 18 20 18 Rate Blood Pressure 132/81 H 132/81 H O2 Saturation 96 96 Oxygen O2 Source Room air - Rads (name of study) chest xray Radiology: Prelim report reviewed, EMP read contemporaneously (Hyperexpanded consistent with his COPD. Mild scarring noted comparable to prior. No infiltrates.), See rad report PD MEDICAL DECISION MAKING - ED course Complexity details: reviewed results, considered differential (His breathing is more relaxed compared to what sounds like was at home. His oxygenation is good. There is no work of breathing. 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 Continue your albuterol inhaler and nebulizer 4 times a day at home. Use Decadron steroid daily as directed. Doxycycline antibiotic twice daily for a week. Add Tessalon if needed for cough and Tylenol and/or tramadol for pains. Recheck if not improving over the next few days.
--- NOTE | 2018-05-21 03:21 | XRAY Report ---
Reason: cough and dyspnea Procedure Date: 05/21/2018 Accession Number: [id number] / [id number] Procedure: XR - Chest 2 View X-Ray CPT Code: 51031 FULL RESULT: EXAM: CHEST RADIOGRAPHY EXAM DATE: 05/21/2018 02:57 AM. CLINICAL HISTORY: Cough and dyspnea. COMPARISON: CHEST 2 VIEW 05/04/2018 7:38 AM. TECHNIQUE: 2 views. FINDINGS: Lungs/Pleura: Mild bibasilar atelectasis. Calcified pleural plaquing. No pleural effusion seen. No pneumothorax. Mediastinum: Mild cardiomegaly. Aortic atherosclerosis. Other: None. IMPRESSION: 1. Mild cardiomegaly and mild bibasilar atelectasis. 2. Calcified pleural plaquing. 3. No acute abnormality seen. RADIA
[2018-05-21 03:22] VITALS: BP 154/68
== END 2018-05-21 03:21 | disposition home or self-care (01) ==
LOC: ED 02:18
DX: J44.1 Chronic obstructive pulmonary disease with (acute) exacerbation (principal); E11.9 Type 2 diabetes mellitus without complications; Z79.4 Long term (current) use of insulin; Z86.718 Personal history of other venous thrombosis and embolism; Z96.659 Presence of unspecified artificial knee joint
CPT/HCPCS: 71046; 94640; 99283; 99284; A9270

== ENCOUNTER 2018-05-27 09:36 | Emergency (ER) | payer MEDICARE, OTHER ==
--- NOTE | 2018-05-27 10:01 | ED Physician Documentation ---
PD HPI HEAD INJURY - Stated complaint Stated Complaint: BACK PX - Chief complaint Chief Complaint: Trauma Hd/Nk - History obtained from History obtained from: Patient - History of Present Illness Mechanism of head injury: Fell ( says he just lost balance and fell backward. Has problems with balance. Patient with dementia so does not remember the event. says he did not complain of head, chest, abd pain prior to falling. Minimal head pain after. No LOC. Has some pain right low back. No leg weakness.) Where head injury occurred: Home Timing - onset: Today (few hours ago) Location of injury: Back Quality of pain: No: Throbbing, Aching Associated symptoms: No: LOC, AMS, Nausea / vomiting Contributing factors: Anticoagulated Similar symptoms before: Has not had sx before Review of Systems Unable to obtain: Dementia, Other (info from ) Constitutional: denies: Fever, Chills Nose: denies: Rhinorrhea / runny nose, Congestion Throat: denies: Sore throat Respiratory: denies: Cough GI: denies: Abdominal Pain, Vomiting, Diarrhea Musculoskeletal: reports: Back pain (this morning). denies: Neck pain Neurologic: denies: Focal weakness, Altered mental status, Headache PD PAST MEDICAL HISTORY - Past Medical History Cardiovascular: Deep vein thrombosis Respiratory: Asthma, COPD, Pneumonia, Tuberculosis, Other Endocrine/Autoimmune: Type 2 diabetes GI: GERD : None HEENT: Other Psych: Anxiety Musculoskeletal: None Derm: Herpes zoster - Past Surgical History Past Surgical History: Yes General: Colonoscopy, EGD Ortho: Knee replacement, Arthroscopic surgery, Other - Present Medications Home Medications: Ambulatory Orders Medication Instructions Recorded Confirmed Fluticasone/Salmeterol [Advair 1 puffs ORAL BID 07/30/13 05/27/18 250-50 Diskus] Insulin Glargine [Lantus] 30 units SUBQ DAILY 07/30/13 05/27/18 Ipratropium/Albuterol [Combivent 1 puffs ORAL BID 07/30/13 05/27/18 Respimat] Levothyroxine [Synthroid] 100 mcg PO QDAC 07/30/13 05/27/18 Montelukast [Singulair] 10 tab ORAL DAILY 07/30/13 05/27/18 Apixaban [Eliquis] 5 mg PO DAILY 02/16/16 12/05/16 Albuterol Sulfate [Proair Hfa 1 - 2 puffs INH Q4H 05/30/17 Inhaler] Cholecalciferol (Vitamin D3) 2,000 unit PO DAILY 05/30/17 [Vitamin D3] Ferrous Sulfate 325 mg PO DAILY 05/30/17 05/27/18 Glimepiride 1 mg PO DAILY 05/30/17 05/27/18 Latanoprost 0.005% Ophth Drops 1 drops EACHEYE DAILY 05/30/17 05/27/18 [Xalatan Ophth Drops] Bacitracin 1 applic TOP BID #1 oint...g. 08/17/17 Cephalexin [Keflex] 500 mg PO Q6H 7 Days capsule 08/17/17 Ciprofloxacin HCl [Cipro] 500 mg PO BID #20 tablet 08/19/17 Levofloxacin [Levaquin] 750 mg PO DAILY #5 tablet 05/04/18 05/27/18 predniSONE [Prednisone] 60 mg PO DAILY 5 Days #15 tablet 05/04/18 05/27/18 Benzonatate [Tessalon Perle] 100 mg PO TID PRN #25 capsule 05/21/18 Tramadol HCl 50 mg PO Q6H PRN #15 tablet 05/21/18 05/27/18 - Allergies Allergies/Adverse Reactions: Allergies Allergy/AdvReac Type Severity Reaction Status Date / Time JANNY Inhibitors Allergy Intermediate Unknown Verified 05/27/18 09:53 lovastatin Allergy Intermediate Headache Verified 05/27/18 09:53 tiotropium bromide * Allergy Intermediate Respiratory Verified 05/27/18 09:53 [From Spiriva with HandiHaler] azithromycin [From Zithromax] Allergy Unknown Unknown Verified 05/27/18 09:53 carvedilol [From Coreg] Allergy Unknown Unknown Verified 05/27/18 09:53 losartan [Losartan] Allergy Unknown Unknown Verified 05/27/18 09:53 metformin Allergy Unknown Unknown Verified 05/27/18 09:53 olmesartan medoxomil * Allergy Unknown Unknown Verified 05/27/18 09:53 [From Benicar] sitagliptin [From Januvia] Allergy Unknown Verified 05/27/18 09:53 - Social History Does the pt smoke?: No Smoking Status: Never smoker Does the pt drink ETOH?: Yes Does the pt have substance abuse?: No - Immunizations Immunizations are current?: Yes - POLST Patient has POLST: No PD ED PE NORMAL - Vitals Vital signs reviewed: Yes - General General: No acute distress, Well developed/nourished, Other (he is somewhat grumpy generally. His seems to tolerate him well. ). No: Alert and oriented X 3 (oriented to person and place, not time and with poor short term memory. 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 ) - HEENT HEENT: No: Atraumatic (small tender spot back of head. ) - Neck Neck: Supple, no meningeal sign, No adenopathy - Cardiac Cardiac: RRR, No murmur - Abdomen Abdomen: Soft, Non tender - Back Back: No spinal TTP - Derm Derm: Normal color, Warm and dry - Extremities Extremities: Normal ROM s pain - Neuro Neuro: glass scullion 2-12 intact, No motor deficit, No sensory deficit Results - Vitals Vitals: Oxygen O2 Source Room air - Rads (name of study) head and lumbar CT Radiology: Prelim report reviewed (no acute processes seem on imaging. ), See rad report PD MEDICAL DECISION MAKING - ED course Complexity details: reviewed results, considered differential (does not seem very injured but is on anticoag.), d/w patient, d/w family (, who is very patient with her ) Departure - Departure Disposition: 01 Home, Self Care Clinical Impression: Anticoagulant long-term use Accidental fall Qualifiers: Encounter type: initial encounter Qualified Code(s): W19.XXXA - Unspecified fall, initial encounter Low back strain Qualifiers: Encounter type: initial encounter Qualified Code(s): S39.012A - Strain of muscle, fascia and tendon of lower back, initial encounter Head contusion Qualifiers: Encounter type: initial encounter Contusion of head detail: scalp Qualified Code(s): S00.03XA - Contusion of scalp, initial encounter Condition: Stable Record reviewed to determine appropriate education?: Yes Follow-Up: Tonie Condon MD [Primary Care Provider] - Comments: Continue usual medications. Tylenol if needed for pains. No signs of bleeding or fractures on your scans. He will likely be sore for a few days. Discharge Date/Time: 05/27/18 11:14
[2018-05-27] MEDS ORDERED: ACETAMINOPHEN 325 MG TABLET PO STA (10:10)
--- NOTE | 2018-05-27 10:47 | CT Report ---
Reason: fall; on Eliquis Procedure Date: 05/27/2018 Accession Number: [id number] / [id number] Procedure: CT - HEAD WO CPT Code: FULL RESULT: EXAM: CT HEAD EXAM DATE: 05/27/2018 10:36 AM. CLINICAL HISTORY: Fall. On Eliquis. COMPARISON: HEAD W/ 11/17/2015 8:12 PM. TECHNIQUE: Multiaxial CT images were obtained from the foramen magnum to the vertex. Reformats: Sagittal and coronal. IV contrast: None. In accordance with CT protocol optimization, one or more of the following dose reduction techniques were utilized for this exam: automated exposure control, adjustment of mA and/or KV based on patient size, or use of iterative reconstructive technique. FINDINGS: Parenchyma: No intraparenchymal hemorrhage. No evidence of mass, midline shift, or CT findings of infarction. Gomes-white differentiation is distinct. Extraaxial Spaces: Normal for age. No subdural or epidural collections identified. Ventricles: Normal in size and position. Sinuses and Orbits: The orbits are unremarkable. Aside from a mild amount of mucosal thickening and opacification of ethmoid air cells, sinuses are unremarkable. Mastoid air cells are clear. Bones: No evidence of fracture or calvarial defect. Other: Superficial extracranial hematoma near the vertex. IMPRESSION: No acute intracranial hemorrhage. RADIA
--- NOTE | 2018-05-27 10:51 | CT Report ---
Reason: fall; low back pain; on Eliquis Procedure Date: 05/27/2018 Accession Number: [id number] / [id number] Procedure: CT - LUMBAR SPINE WO CPT Code: FULL RESULT: EXAM: CT LUMBAR SPINE WITHOUT CONTRAST EXAM DATE: 05/27/2018 10:36 AM. CLINICAL HISTORY: Fall; low back pain; on Eliquis. COMPARISONS: None. TECHNIQUE: Thin-section axial images were acquired of the lumbar spine from T12 to S1 without contrast. Post-processing: Coronal and sagittal reformats. Other: None. In accordance with CT protocol optimization, one or more of the following dose reduction techniques were utilized for this exam: automated exposure control, adjustment of mA and/or KV based on patient size, or use of iterative reconstructive technique. FINDINGS: Alignment: No scoliosis or spondylolisthesis. Bones: Five [id number] lumbar vertebral bodies are present. No fractures or bone lesions. There are multilevel degenerative changes which are most pronounced at L4-L5 where there is disk desiccation and disk osteophyte complex formation with posterior disk bulging. Musculature: Normal. No fatty atrophy. Other: Bladder is distended. Aorta is atherosclerotic. There is perinephric fat stranding symmetrically and relative atrophy of the right kidney as compared to the left. IMPRESSION: Degenerative changes with no evidence of acute osseous trauma. RADIA
== END 2018-05-27 11:14 | disposition home or self-care (01) ==
LOC: ED 09:36
DX: S00.93XA Contusion of unspecified part of head, initial encounter (principal); S39.012A Strain of muscle, fascia and tendon of lower back, initial encounter; W18.30XA Fall on same level, unspecified, initial encounter; E11.9 Type 2 diabetes mellitus without complications; Z79.4 Long term (current) use of insulin; F03.90 Unspecified dementia, unspecified severity, without behavioral disturbance, psychotic disturbance, mood disturbance, and anxiety; Z79.01 Long term (current) use of anticoagulants
CPT/HCPCS: 70450; 72131; 99283; 99284; A9270

== ENCOUNTER 2018-05-31 20:06 | Emergency (ER) | payer MEDICARE, OTHER ==
--- NOTE | 2018-05-31 20:28 | ED Physician Documentation ---
PD HPI CHEST PAIN - Stated complaint Stated Complaint: CHEST PX - Chief complaint Chief Complaint: Cardiac - History obtained from History obtained from: Patient - History of Present Illness Timing - onset: Today (states onset of cough and dyspnea today, but does have poor memory short term.) Timing - onset during: Light activity Timing - details: Gradual onset, Still present, Waxing and waning Quality: Tightness Location: Substernal Associated symptoms: Shortness of air. No: Nausea, Feeling faint / dizzy Similar symptoms before: Diagnosis (COPD with exac with cough. Has asbestosis as well. No history of CAD. He states he has had pneumonia "17 times" so gets meds/abx as soon as he starts getting cough/colored sputum.) Review of Systems Constitutional: denies: Fever, Chills, Myalgias Nose: denies: Rhinorrhea / runny nose, Congestion Throat: denies: Sore throat Cardiac: denies: Chest pain / pressure Respiratory: reports: Dyspnea, Cough, Wheezing GI: denies: Vomiting PD PAST MEDICAL HISTORY - Past Medical History Cardiovascular: Deep vein thrombosis Respiratory: Asthma, COPD, Pneumonia, Tuberculosis, Other Endocrine/Autoimmune: Type 2 diabetes GI: GERD : None HEENT: Other Psych: Anxiety Musculoskeletal: None Derm: Herpes zoster - Past Surgical History Past Surgical History: Yes General: Colonoscopy, EGD Ortho: Knee replacement, Arthroscopic surgery, Other - Present Medications Home Medications: Ambulatory Orders Medication Instructions Recorded Confirmed Fluticasone/Salmeterol [Advair 1 puffs ORAL BID 07/30/13 05/27/18 250-50 Diskus] Insulin Glargine [Lantus] 30 units SUBQ DAILY 07/30/13 05/27/18 Ipratropium/Albuterol [Combivent 1 puffs ORAL BID 07/30/13 05/27/18 Respimat] Levothyroxine [Synthroid] 100 mcg PO QDAC 07/30/13 05/27/18 Montelukast [Singulair] 10 tab ORAL DAILY 07/30/13 05/27/18 Apixaban [Eliquis] 5 mg PO DAILY 02/16/16 12/05/16 Albuterol Sulfate [Proair Hfa 1 - 2 puffs INH Q4H 05/30/17 Inhaler] Cholecalciferol (Vitamin D3) 2,000 unit PO DAILY 05/30/17 [Vitamin D3] Ferrous Sulfate 325 mg PO DAILY 05/30/17 05/27/18 Glimepiride 1 mg PO DAILY 05/30/17 05/27/18 Latanoprost 0.005% Ophth Drops 1 drops EACHEYE DAILY 05/30/17 05/27/18 [Xalatan Ophth Drops] Bacitracin 1 applic TOP BID #1 oint...g. 08/17/17 Cephalexin [Keflex] 500 mg PO Q6H 7 Days capsule 08/17/17 Ciprofloxacin HCl [Cipro] 500 mg PO BID #20 tablet 08/19/17 Levofloxacin [Levaquin] 750 mg PO DAILY #5 tablet 05/04/18 05/27/18 predniSONE [Prednisone] 60 mg PO DAILY 5 Days #15 tablet 05/04/18 05/27/18 Benzonatate [Tessalon Perle] 100 mg PO TID PRN #25 capsule 05/21/18 Tramadol HCl 50 mg PO Q6H PRN #15 tablet 05/21/18 05/27/18 Dexamethasone [Decadron] 4 mg PO DAILY #5 tablet 05/31/18 Doxycycline Hyclate 100 mg PO BID #14 capsule 05/31/18 - Allergies Allergies/Adverse Reactions: Allergies Allergy/AdvReac Type Severity Reaction Status Date / Time JANNY Inhibitors Allergy Intermediate Unknown Verified 05/27/18 09:53 lovastatin Allergy Intermediate Headache Verified 05/27/18 09:53 tiotropium bromide * Allergy Intermediate Respiratory Verified 05/27/18 09:53 [From Spiriva with HandiHaler] azithromycin [From Zithromax] Allergy Unknown Unknown Verified 05/27/18 09:53 carvedilol [From Coreg] Allergy Unknown Unknown Verified 05/27/18 09:53 losartan [Losartan] Allergy Unknown Unknown Verified 05/27/18 09:53 metformin Allergy Unknown Unknown Verified 05/27/18 09:53 olmesartan medoxomil * Allergy Unknown Unknown Verified 05/27/18 09:53 [From Benicar] sitagliptin [From Januvia] Allergy Unknown Verified 05/27/18 09:53 - Social History Does the pt smoke?: No Smoking Status: Never smoker Does the pt drink ETOH?: Yes Does the pt have substance abuse?: No - Immunizations Immunizations are current?: Yes - POLST Patient has POLST: No PD ED PE NORMAL - Vitals Vital signs reviewed: Yes - General General: Alert and oriented X 3, No acute distress, Well developed/nourished - HEENT HEENT: Pharynx benign - Neck Neck: Supple, no meningeal sign, No adenopathy - Cardiac Cardiac: RRR, No murmur - Respiratory Respiratory: No: Clear bilaterally (mild wheezes noted in upper degroot and more to the right. ) Results - Vitals Vitals: Vital Signs - 24 hr 05/31/18 05/31/18 05/31/18 20:12 21:12 21:24 Temperature 36.7 C Heart Rate 103 H 93 102 H Respiratory 14 18 20 Rate Blood Pressure 149/75 H 130/92 H O2 Saturation 97 97 Oxygen O2 Source Room air PD MEDICAL DECISION MAKING - ED course Complexity details: reviewed old records (no history of CAD. Has had some dyspnea episodes in the past, usually from COPD flare. ), considered differential, d/w patient Departure - Departure Disposition: 01 Home, Self Care Clinical Impression: Acute exacerbation of chronic obstructive pulmonary disease (COPD) Chest pain Qualifiers: Chest pain type: precordial pain Qualified Code(s): R07.2 - Precordial pain Dyspnea Qualifiers: Dyspnea type: orthopnea Qualified Code(s): R06.01 - Orthopnea Condition: Stable Record reviewed to determine appropriate education?: Yes Instructions: ED Chest Pain Atypical Unkn Cause Prescriptions: Dexamethasone [Decadron] 4 mg PO DAILY #5 tablet Doxycycline Hyclate 100 mg PO BID #14 capsule Comments: Use Tylenol if needed for pains. Take the Decadron steroid and doxycycline antibiotic as directed. Recheck if not improved over the next few days and return sooner if worsening. We will presume this is a flareup of your lung disease with inflammation and or infection. Discharge Date/Time: 05/31/18 21:25
[2018-05-31] MEDS ORDERED: CHERRY SYRUP 10 ML UDC PO ONE (20:41)
[2018-05-31] MEDS ORDERED: ALBUTEROL NEB 2.5 MG/3 ML INH STA (20:41)
[2018-05-31] MEDS ORDERED: DEXAMETHASONE 10 MG/ML VIAL PO STA (20:41)
[2018-05-31] MEDS ORDERED: DOXYCYCLINE 100 MG TABLET PO STA (20:42)
[2018-05-31 21:25] VITALS: BP 130/92
== END 2018-05-31 21:25 | disposition home or self-care (01) ==
LOC: ED 20:06
DX: J44.1 Chronic obstructive pulmonary disease with (acute) exacerbation (principal); R07.2 Precordial pain; R06.01 Orthopnea; E11.9 Type 2 diabetes mellitus without complications; R00.0 Tachycardia, unspecified; Z79.4 Long term (current) use of insulin; Z86.718 Personal history of other venous thrombosis and embolism; Z96.659 Presence of unspecified artificial knee joint
CPT/HCPCS: 93005; 94640; 99283; 99284; A9270

== ENCOUNTER 2018-06-23 04:28 | Outpatient (CLI) | payer MEDICARE, OTHER | END 2018-06-23 04:29 | disposition short-term general hospital (02) | LOC: EMS 04:28 | PROVIDERS: ATTEND Surgery | DX: R06.02 Shortness of breath (principal) | CPT/HCPCS: A0425; A0429; A0888 ==

== ENCOUNTER 2018-06-26 09:16 | Outpatient (CLI) | payer MEDICARE, OTHER ==
[~2018-06-26 09:16] MED LIST: ALBUTEROL NEB 2.5 MG/3 ML INH ONE
== END 2018-06-26 09:17 | disposition home or self-care (01) ==
LOC: RT 09:16
PROVIDERS: ATTEND Family Medicine
DX: J44.9 Chronic obstructive pulmonary disease, unspecified (principal)
CPT/HCPCS: 94010

== ENCOUNTER 2018-07-03 14:10 | Outpatient (CLI) | payer MEDICARE, OTHER ==
[2018-07-03 19:21] LABS: CALCIUM 8.9 mg/dL (8.5-10.3); CREATININE 1.4 mg/dL (0.6-1.2)
[2018-07-03 19:23] LABS: HB2 TOTAL 15.1 g/dL; HEMOGLOBIN A1C 0.97 g/dL
== END 2018-07-03 23:59 | disposition home or self-care (01) ==
LOC: LAB.WCP 14:10
PROVIDERS: ATTEND Family Medicine
DX: E11.9 Type 2 diabetes mellitus without complications (principal)
CPT/HCPCS: 36415; 80048; 82043; 83036

== ENCOUNTER 2018-07-04 08:00 | Outpatient (CLI) | payer MEDICARE, OTHER | END 2018-07-04 23:59 | disposition home or self-care (01) | LOC: LAB.R 08:00 | PROVIDERS: ATTEND Family Medicine | DX: E11.9 Type 2 diabetes mellitus without complications (principal) | CPT/HCPCS: 82043 ==

== ENCOUNTER 2018-08-26 14:05 | Outpatient (CLI) | payer MEDICARE, OTHER | END 2018-08-26 14:06 | disposition critical access hospital (66) | LOC: EMS 14:05 | PROVIDERS: ATTEND Surgery | DX: R41.0 Disorientation, unspecified (principal); R46.89 Other symptoms and signs involving appearance and behavior; R45.1 Restlessness and agitation | CPT/HCPCS: A0425; A0429 ==

== ENCOUNTER 2018-08-26 14:21 | Observation (INO) | payer MEDICARE, OTHER ==
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
[2018-08-26 14:53] LABS: BASOPHILS # (AUTO) 0.1 10^3/uL (0.0-0.1); BASOPHILS % (AUTO) 0.8 %; EOSINOPHILS # (AUTO) 0.2 10^3/uL (0.0-0.7); LYMPHOCYTES # (AUTO) 1.2 10^3/uL (1.5-3.5); LYMPHOCYTES % (AUTO) 14.1 %; MEAN CORPUSCULAR HEMOGLOBIN 30.7 pg (27.0-31.0); MEAN CORPUSCULAR HGB CONC 34.4 g/dL (32.0-36.0); MEAN CORPUSCULAR VOLUME 89.2 fL (80.0-94.0); MEAN PLATELET VOLUME 9.1 fL (7.4-11.4); MONOCYTES # (AUTO) 0.7 10^3/uL (0.0-1.0); MONOCYTES % (AUTO) 8.5 %; NEUTROPHILS # (AUTO) 6.4 10^3/uL (1.5-6.6); NEUTROPHILS % (AUTO) 74.1 %; PLT - PLATELET COUNT 251 10^3/uL (130-450); RED BLOOD COUNT 4.24 10^6/uL (4.70-6.10); RED CELL DISTRIBUTION WIDTH 12.6 % (12.0-15.0); WHITE BLOOD COUNT 8.6 x10^3/uL (4.8-10.8)
[2018-08-26 15:02] LABS: CALCIUM 8.8 mg/dL (8.5-10.3); CREATININE 1.8 mg/dL (0.6-1.2)
--- NOTE | 2018-08-26 15:28 | CT Report ---
Reason: stumbling, facial droop Procedure Date: 08/26/2018 Accession Number: [id number] / [id number] Procedure: CT - HEAD WO CPT Code: FULL RESULT: EXAM: CT HEAD WITHOUT CONTRAST. EXAM DATE: 08/26/2018 03:01 PM. CLINICAL HISTORY: Stumbling, facial droop. Confusion, unable to answer questions. COMPARISON: HEAD W/O 05/27/2018 10:26 AM. TECHNIQUE: Multiaxial CT images were obtained from the foramen magnum to the vertex. Reformats: Sagittal and coronal. IV contrast: None. In accordance with CT protocol optimization, one or more of the following dose reduction techniques were utilized for this exam: automated exposure control, adjustment of mA and/or KV based on patient size, or use of iterative reconstructive technique. FINDINGS: Parenchyma: No intraparenchymal hemorrhage. No evidence of mass, midline shift. Gomes-white differentiation is distinct. Extraaxial Spaces: Redemonstration of prominent CSF density space along the medial aspect of the left cerebellar hemisphere, stable finding, hygroma versus prominent arachnoid cyst versus Danny cisterna magna. Basal cisterns are patent. There is stable prominence of the frontal interhemispheric space as seen coronally on image 9 series 6, compared to image 10 series 6 on the previous study. Prominent CSF space versus subdural hygroma. Ventricles: Prominent, symmetric and in proportion to prominence of sulci in keeping with cerebral volume remodeling. Stable ventricular configuration. Sinuses and Orbits: Imaged paranasal sinuses, orbits, and mastoids show no significant abnormality. Bones: No evidence of fracture or calvarial defect. Other: None. IMPRESSION: No acute intracranial abnormality. Stable extra-axial prominences, potential chronic subdural collection as described. RADIA
[2018-08-26] MEDS ORDERED: HALOPERIDOL 5 MG/ML VIAL IVP ONE (15:35)
[2018-08-26] MEDS ORDERED: SODIUM CHLORIDE 0.9% 1,000 ML IV ONE (15:41)
[2018-08-26 15:58] LABS: BILIRUBIN,URINE NEGATIVE (NEGATIVE); GLUCOSE, URINE (UA) NEGATIVE (NEGATIVE); KETONES,URINE (UA) NEGATIVE (NEGATIVE); LEUKOCYTE ESTERASE, URINE NEGATIVE (NEGATIVE); NITRITE,URINE NEGATIVE (NEGATIVE); OCCULT BLOOD,URINE MODERATE (NEGATIVE); PROTEIN,URINE 100 mg/dL (NEGATIVE); UROBILINOGEN,URINE 0.2 (NORMAL) E.U./dL (NORMAL)
[2018-08-26 16:01] LABS: CLARITY,URINE CLEAR (CLEAR)
[2018-08-26 16:12] LABS: BACTERIA,URINE Few /HPF (None Seen); SQUAMOUS EPITHELIAL CELL,UR NONE SEEN (<= Few)
[2018-08-26] MEDS ORDERED: SODIUM CHLORIDE FLUSH 0.9% 10 ML SYRINGE IVP PRN (16:30)
[2018-08-26] MEDS ORDERED: ONDANSETRON 4 MG/2 ML VIAL IVP PRN (16:30)
[2018-08-26] MEDS ORDERED: ACETAMINOPHEN 325 MG TABLET PO PRN (16:30)
[2018-08-26] MEDS ORDERED: ALBUTEROL NEB 2.5 MG/3 ML INH PRN (16:59)
[2018-08-26] MEDS ORDERED: IPRATROPIUM/ALBUTEROL 3 ML NEB INH PRN (17:02)
[2018-08-26] MEDS ORDERED: traMADol 50 MG TABLET PO PRN (17:06)
--- NOTE | 2018-08-26 17:10 | HISTORY & PHYSICAL EXAMINATION ---
Chief Complaint - Chief Complaint Chief Complaint: AMS History of Present Illness - History of Present Illness HPI Comment/Other: Mr. Rangel is a 83-yrs-old female with a PMH significant for DVT, CKD stage 3, Asthma, COPD, Tuberculosis, DM2, GERD, Anxiety, Herpes Zoster, dementia, who present ER for complain of AMS. I did introduce myself to pt and her . Nurse report to me pt does not want to be admitted, so I asked pt if he want to be admitted. pt told he want to go to home. pt has hx of dementia, pt still has his right let medical provider to know what pt's wish is. Because I ask pt if he want to stay in the hospital, Pt's was very angry. she did not let me assess pt. she state to me " go away". However, I recognize pt has hx of d ementia, according to his medical conditions, he qualifies for the observation status in the hospital, so I admit pt in observation unit. Because pt's did not let me assess pt, all the information is from the chart. Per triage nurse, pt was last known well yesterday. Pt drove car into back of his garage, he became confused, agitated and with right facial droop. pt was required to have Haldol to have image study in ER. In lab test in ER, pt has Na 132, BUN 33, creatinine 1.8. UA analysis reveals urine protein is 100H, urine occult blood is moderate, urine RBC is 6-10H. Other lab value is unremarkable. CT of head is unremarkable. pt is admitted in observation unit for TIA with confusion. History - Past Medical History Cardiovascular: reports: Deep vein thrombosis Respiratory: reports: Asthma, COPD, Pneumonia, Tuberculosis, Other Endocrine/Autoimmune: reports: Type 2 diabetes GI: reports: GERD : reports: None HEENT: reports: Other Psych: reports: Anxiety Musculoskeletal: reports: None Derm: reports: Herpes zoster MRSA Hx?: No - Past Surgical History General: reports: Colonoscopy, EGD Ortho: reports: Knee replacement, Arthroscopic surgery, Other - POLST Patient has POLST: No Meds/Allgy - Home Medications Home Medications: Ambulatory Orders Medication Instructions Recorded Confirmed Fluticasone/Salmeterol [Advair 1 puffs ORAL BID 07/30/13 05/27/18 250-50 Diskus] Insulin Glargine [Lantus] 30 units SUBQ DAILY 07/30/13 05/27/18 Ipratropium/Albuterol [Combivent 1 puffs ORAL BID 07/30/13 05/27/18 Respimat] Levothyroxine [Synthroid] 100 mcg PO QDAC 07/30/13 05/27/18 Montelukast [Singulair] 10 tab ORAL DAILY 07/30/13 05/27/18 Apixaban [Eliquis] 5 mg PO DAILY 02/16/16 12/05/16 Albuterol Sulfate [Proair Hfa 1 - 2 puffs INH Q4H 05/30/17 Inhaler] Cholecalciferol (Vitamin D3) 2,000 unit PO DAILY 05/30/17 [Vitamin D3] Ferrous Sulfate 325 mg PO DAILY 05/30/17 05/27/18 Glimepiride 1 mg PO DAILY 05/30/17 05/27/18 Latanoprost 0.005% Ophth Drops 1 drops EACHEYE DAILY 05/30/17 05/27/18 [Xalatan Ophth Drops] Bacitracin 1 applic TOP BID #1 oint...g. 08/17/17 Cephalexin [Keflex] 500 mg PO Q6H 7 Days capsule 08/17/17 Ciprofloxacin HCl [Cipro] 500 mg PO BID #20 tablet 08/19/17 Levofloxacin [Levaquin] 750 mg PO DAILY #5 tablet 05/04/18 05/27/18 predniSONE [Prednisone] 60 mg PO DAILY 5 Days #15 tablet 05/04/18 05/27/18 Benzonatate [Tessalon Perle] 100 mg PO TID PRN #25 capsule 05/21/18 Tramadol HCl 50 mg PO Q6H PRN #15 tablet 05/21/18 05/27/18 Doxycycline Hyclate 100 mg PO BID #14 capsule 05/31/18 dexAMETHasone [Decadron] 4 mg PO DAILY #5 tablet 05/31/18 Albuterol 2.5 mg INH Q4H PRN 08/26/18 08/26/18 Brinzolamide/Brimonidine Tart 1 drops EACHEYE TID 08/26/18 08/26/18 [Simbrinza 1%-0.2% Eye Drops] Diclofenac Sodium Dr [Voltaren] 75 mg PO BIDWM 08/26/18 08/26/18 Omeprazole 20 mg PO BIDAC 08/26/18 08/26/18 raNITIdine [Zantac] 150 mg PO BID 08/26/18 08/26/18 - Allergies Allergies/Adverse Reactions: Allergies Allergy/AdvReac Type Severity Reaction Status Date / Time JANNY Inhibitors Allergy Intermediate Unknown Verified 08/26/18 14:35 lovastatin Allergy Intermediate Headache Verified 08/26/18 14:35 tiotropium bromide * Allergy Intermediate Respiratory Verified 08/26/18 14:35 [From Spiriva with HandiHaler] azithromycin [From Zithromax] Allergy Unknown Unknown Verified 08/26/18 14:35 carvedilol [From Coreg] Allergy Unknown Unknown Verified 08/26/18 14:35 losartan [Losartan] Allergy Unknown Unknown Verified 08/26/18 14:35 metformin Allergy Unknown Unknown Verified 08/26/18 14:35 olmesartan medoxomil * Allergy Unknown Unknown Verified 08/26/18 14:35 [From Benicar] sitagliptin [From Januvia] Allergy Unknown Verified 08/26/18 14:35 Review of Systems - Other Findings Other Findings: pt's did not let me assess pt Exam - Vital Signs Vital Signs: Vital Signs x48h Temp Pulse Resp BP Pulse Ox 08/26/18 16:27 86 17 174/90 H 97 08/26/18 15:50 91 22 174/90 H 99 08/26/18 15:05 84 26 H 166/99 H 99 08/26/18 14:32 36.7 C 83 20 172/88 H 99 - Physical Exam Comments/Other: pt's did not let me assess pt Sepsis Event Note (H) - Evaluation Current Stage of Sepsis: Ruled out Conclusion/Plan - Problem List (1) Altered mental status, unspecified Conclusion/Plan: pt has sudden AMS from yesterday. CT of head is unremarkable. differential diagn osis include TIA, stroke, worsening of dementia with . will check TSH, B12 order MRI, check US of carotid, since pt has CKD stage 3, pt can not have CTA. hospital did not have ECHO for two days, will refer to out-pt ECHO neuro check, vital and tele monitor Qualifiers: Altered mental status type: unspecified Qualified Code(s): R41.82 - Altered mental status, unspecified (2) Facial droop Conclusion/Plan: pt has slight right facial droop, but pt has no other neurological focal deficit per ER report, possible TIA/stroke. CT of head is unremarkable order MRI, check US of carotid, since pt has CKD stage 3, pt can not have CTA. hospital did not have ECHO for two days, will refer to out-pt ECHO neuro check, vital and tele monitor Aspirin 325 mg daily. pt is allergy to Lovastatin (3) DM2 (diabetes mellitus, type 2) Conclusion/Plan: pt has 112 glucose level. pt took insulin at home start on Slide scale, ACHS, hypoglycemia protocol check A1C (4) History of COPD Conclusion/Plan: pt has no cough, has 98% sat on room air will reconcile home meds after confirmed by pharmacy Albuterol, Duoneb PRN singular for his Asthma (5) Acute on chronic renal insufficiency Conclusion/Plan: pt has hx of creatinine around 1.5, now his creatinine increased to 1.8, BUN 33 hydration, with IVF of NS, but precaution of fluid overload lab and vital monitor pt (6) Hyponatremia Conclusion/Plan: it is likely from pt's hypovlume hyponatremia. his Sodium today is 132 start of NS IVF lab monitor (7) History of DVT (deep vein thrombosis) Conclusion/Plan: pt has hx of DVT, in his home meds, he would take Eliquis 5 mg daily, will wait for pharmacy to confirm and reconcile his home meds (8) GERD (gastroesophageal reflux disease) Conclusion/Plan: pt has hx of GERD, add Protonic for pt (9) Hypothyroidism Conclusion/Plan: will check TSH, and reconcile pt's home Levothyroxine as confirmed by pharmacy (10) HTN (hypertension) Conclusion/Plan: pt present HTN at ER, there is no home BP now. add Hydralazine and CLonidine as PRN vital monitor - Lab Results Fish Bones: 08/26/18 14:46 08/26/18 14:46 Core Measures - Anticipated LOS I expect patient to be DC'd or transferred within 96 hours.: Yes - DVT/VTE - Prophylaxis VTE/DVT Device ordered at admit?: Yes VTE/DVT Prophylaxis med ordered at admit?: Yes
[2018-08-26] MEDS ORDERED: KETAMINE 500 MG/10 ML VIAL IVP STA (17:24)
[2018-08-26] MEDS ORDERED: LORazepam 2 MG/ML VIAL IVP STA (17:45)
[2018-08-26] MEDS ORDERED: hydrALAZINE INJ 20 MG/ML VIAL IVP PRN (18:24)
[2018-08-26] MEDS ORDERED: cloNIDine 0.1 MG TABLET PO PRN (18:26)
[2018-08-26] MEDS: INSULIN ASPART 300 UNIT/3 ML PEN SUBQ SCH ×2 (18:43→22:14)
[2018-08-26] MEDS: SODIUM CHLORIDE 0.9% 1,000 ML IV SCH (18:44)
[2018-08-26] MEDS: SODIUM CHLORIDE FLUSH 0.9% 10 ML SYRINGE IVP SCH ×2 (18:44→23:54)
[2018-08-26] MEDS ORDERED: ASPIRIN 325 MG TABLET PO ONE (19:30)
[2018-08-26] MEDS ORDERED: MONTELUKAST 10 MG TABLET PO SCH (21:00)
[2018-08-26] MEDS ORDERED: HALOPERIDOL 5 MG/ML VIAL IVP PRN (21:29)
[2018-08-26] MEDS: IPRATROPIUM/ALBUTEROL 3 ML NEB INH SCH (22:19)
[2018-08-26] MEDS: HEPARIN 5,000 UNIT/ML VIAL SUBQ SCH (22:21)
--- NOTE | 2018-08-27 00:18 | Ultrasound Report ---
Reason: TIA Procedure Date: 08/26/2018 Accession Number: [id number] / [id number] Procedure: US - Carotid Doppler Complete CPT Code: FULL RESULT: EXAM: BILATERAL CAROTID AND VERTEBRAL ARTERY DUPLEX DOPPLER ULTRASOUND: EXAM DATE: 08/26/2018 11:24 PM CLINICAL HISTORY: Altered mental status, transient ischemic attack. COMPARISON: None. TECHNIQUE: Grayscale imaging, color Doppler, and duplex spectral Doppler were used to evaluate the carotid and vertebral arteries bilaterally. Static images were obtained. FINDINGS: There is moderate, heterogeneous plaque within the right carotid bulb and proximal internal carotid artery with mild plaque in the left carotid bulb and internal carotid artery. Normal antegrade flow is present in bilateral vertebral arteries. VELOCITIES (cm/sec): Right CCA mid: PSV 57.4 cm/sec CCA dist: PSV 57 cm/sec ICA prox: PSV 46 cm/sec, EDV 8.5 cm/sec ICA mid: PSV 47 cm/sec, EDV 9.1 cm/sec ICA dist: PSV 54.3 cm/sec, EDV 8.7 cm/sec ECA: PSV 78 cm/sec Vert: PSV 29.1 cm/sec ICA/CCA: 1.1 Left CCA mid: PSV 44 cm/sec CCA dist: PSV 48 cm/sec ICA prox: PSV 39 cm/sec, EDV 12.2 cm/sec ICA mid: PSV 38 cm/sec, EDV 11 cm/sec ICA dist: PSV 58 cm/sec, EDV 12 cm/sec ECA: PSV 61.3 cm/sec Vert: PSV 28 cm/sec ICA/CCA: 0.8 ICA diameter stenosis: Right: Left: IMPRESSION: 1. Moderate right and mild left carotid artery plaquing. 2. In the right carotid artery there are no elevated carotid artery velocities to suggest hemodynamically significant stenosis. 3. In the left carotid artery there are no elevated carotid artery velocities to suggest hemodynamically significant stenosis. 4. Normal antegrade flow is present in bilateral vertebral arteries. General Recommendations: Stenosis =50% ICA - Follow-up ultrasound 6-12 months Stenosis Normal Study but High Risk Patient - Follow-up ultrasound 3-5 years Management recommendations and diagnostic criteria are based on current IAC endorsed standards in Carotid Artery Stenosis: Grayscale and Doppler Ultrasound Diagnosis. Validated velocity measurements with angiographic measurements and velocity criteria are extrapolated from diameter data as defined by the Society of Radiologists in Ultrasound Consensus Conference Radiology 2003; 229;340-346. RADIA ADDENDUM: 08/28/18 00:34 ICA/CCA ratio corrections remaining within normal limits: Right side at 0.8 and left side 1.2.
[2018-08-27] MEDS: SODIUM CHLORIDE 0.9% 1,000 ML IV SCH (05:46)
[2018-08-27 06:10] LABS: BASOPHILS # (AUTO) 0.1 10^3/uL (0.0-0.1); BASOPHILS % (AUTO) 0.8 %; EOSINOPHILS # (AUTO) 0.2 10^3/uL (0.0-0.7); EOSINOPHILS % (AUTO) 2.3 %; HGB - HEMOGLOBIN 12.9 g/dL (14.0-18.0); LYMPHOCYTES % (AUTO) 13.5 %; MEAN CORPUSCULAR HEMOGLOBIN 30.4 pg (27.0-31.0); MEAN CORPUSCULAR HGB CONC 33.9 g/dL (32.0-36.0); MEAN CORPUSCULAR VOLUME 89.9 fL (80.0-94.0); MEAN PLATELET VOLUME 9.2 fL (7.4-11.4); MONOCYTES # (AUTO) 0.8 10^3/uL (0.0-1.0); MONOCYTES % (AUTO) 10.7 %; NEUTROPHILS # (AUTO) 5.4 10^3/uL (1.5-6.6); NEUTROPHILS % (AUTO) 72.3 %; PLT - PLATELET COUNT 252 10^3/uL (130-450); RED BLOOD COUNT 4.24 10^6/uL (4.70-6.10); RED CELL DISTRIBUTION WIDTH 12.5 % (12.0-15.0); WHITE BLOOD COUNT 7.5 x10^3/uL (4.8-10.8)
[2018-08-27 06:24] LABS: ALBUMIN 3.9 g/dL (3.2-5.5); ALBUMIN/GLOBULIN RATIO 1.3 (1.0-2.2); BILIRUBIN,TOTAL 0.8 mg/dL (0.2-1.0); CALCIUM 8.5 mg/dL (8.5-10.3); CREATININE 1.4 mg/dL (0.6-1.2); HB2 TOTAL 13.6 g/dL; HEMOGLOBIN A1C 0.69 g/dL; HEMOGLOBIN A1C % 6.8 % (4.6-6.2); TOTAL PROTEIN 6.8 g/dL (6.7-8.2)
[2018-08-27] MEDS ORDERED: FORMOTEROL FUMARATE NEB 20 MCG/2 ML INH SCH (07:00)
[2018-08-27] MEDS ORDERED: PANTOPRAZOLE 40 MG TABLET PO SCH (07:00)
[2018-08-27] MEDS ORDERED: BUDESONIDE 0.5 MG/2 ML NEB INH SCH (07:00)
[2018-08-27] MEDS ORDERED: INSULIN GLARGINE 300 UNIT/3 ML PEN SUBQ SCH (08:00)
[2018-08-27] MEDS: IPRATROPIUM/ALBUTEROL 3 ML NEB INH SCH ×2 (08:25→12:13)
[2018-08-27 08:29] LABS: CHOL/HDL RATIO 3.4 (<5.0); CHOLESTEROL 176 mg/dL; HDL CHOLESTEROL 52 mg/dL; LDL CHOLESTEROL,CALCULATED 105 mg/dL; VLDL CHOLESTEROL 19 mg/dL
[2018-08-27 08:31] VITALS: BP 160/90
[2018-08-27] MEDS: INSULIN ASPART 300 UNIT/3 ML PEN SUBQ SCH ×2 (08:37→12:12)
[2018-08-27] MEDS: HEPARIN 5,000 UNIT/ML VIAL SUBQ SCH (08:44)
[2018-08-27] MEDS: SODIUM CHLORIDE FLUSH 0.9% 10 ML SYRINGE IVP SCH (08:45)
[2018-08-27] MEDS ORDERED: POLYETHYLENE GLYCOL 3350 17 GM PACKET PO SCH (09:00)
--- NOTE | 2018-08-27 14:01 | Discharge Plan ---
Discharge Plan Problem Reviewed?: Yes Disposition: Home Health Service Condition: Stable Prescriptions: Simvastatin [Zocor] 10 mg PO DAILY #30 tablet Diet: Cardiac Activity Restrictions: Activity as Tolerated Shower Restrictions: No Driving Restrictions: Yes (no driving) Health Concerns: Your brought you to the hospital because you presented with sudden confusion and work problems. She fears you are having a stroke. We find you to have a normal neurological exam. Most of your confusion is completely gone but you do have baseline dementia. Plan of Treatment: We did a CAT scan of the head to make sure you are not having an acute stroke and that was normal for a man your age. You do have definite signs of old small strokes and old small blood circulation problems in your brain. That is normal with your age. You did not have a new stroke. We did try and do an MRI of the head but you do not like the loud noise, and refused to do the test. We did do ultrasounds of the arteries in your neck and you do not have blocked arteries. Care Goals: Finish the work-up for stroke management. 1. Get an outpatient echocardiogram. Have your primary care provider make that referral 2. You are already on a blood thinner. The only thing we need to add something called simvastatin to help your blood and thereby help you at risk due to risk of stroke. 3. You are developing more more dementia. This is difficult for your to take care of. We have advised to go to the senior center and ask help from them. She may need to start making arrangements for you to go to a skilled nursing for care. Assessment: The patient himself is unable to understand this. His , as his power of district attorney and b2b outside sales representative, understands and accepts these instructions. No Smoking: If you smoke, Please STOP! Call for help. Follow-up with: Eliu Santamaria MD [Primary Care Provider] -
--- NOTE | 2018-08-27 14:33 | Discharge Plan ---
Discharge Plan Disposition: Home Health Service Condition: Stable Prescriptions: Simvastatin [Zocor] 10 mg PO DAILY #30 tablet Activity Restrictions: Activity as Tolerated Shower Restrictions: No Driving Restrictions: Yes (no driving) Health Concerns: Your brought you to the hospital because you presented with sudden confusion and work problems. She fears you are having a stroke. We find you to have a normal neurological exam. Most of your confusion is completely gone but you do have baseline dementia. Plan of Treatment: We did a CAT scan of the head to make sure you are not having an acute stroke and that was normal for a man your age. You do have definite signs of old small strokes and old small blood circulation problems in your brain. That is normal with your age. You did not have a new stroke. We did try and do an MRI of the head but you do not like the loud noise, and refused to do the test. We did do ultrasounds of the arteries in your neck and you do not have blocked arteries. Care Goals: Finish the work-up for stroke management. 1. Get an outpatient echocardiogram. Have your primary care provider make that referral 2. You are already on a blood thinner. The only thing we need to add something called simvastatin to help your blood and thereby help you at risk due to risk of stroke. 3. You are developing more more dementia. This is difficult for your to take care of. We have advised to go to the senior center and ask help from them. She may need to start making arrangements for you to go to a fdc for care. Assessment: The patient himself is unable to understand this. His , as his power of basket person and pest control service representative, understands and accepts these instructions. No Smoking: If you smoke, Please STOP! Call for help. Follow-up with: Eliu Santamaria MD [Primary Care Provider] -
--- NOTE | 2018-08-27 14:37 | DISCHARGE SUMMARY ---
Discharge Summary Admit Date: 08/26/18 Discharge Date: 08/27/18 Code Status: Attempt Resuscitation Condition at Discharge: Stable Discharge Disposition: Home Health Service - DIAGNOSES Discharge Diagnoses with Status of Each Condition: 1. Transient ischemic attack manifested by sudden altered mental status, right facial droop 2. Type 2 diabetes mellitus, controlled, not on long-term insulin 3. History of COPD. 4. Acute on chronic renal insufficiency stage III 5. Hyponatremia 6. Anticoagulated status for history of DVT 7. GERD 8. Hypertension 9. Hypothyroidism 10. 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 Chronic residual subdural hygroma - HPI History of Present Illness: Mr. Rangel is a 83-yrs-old female with a PMH significant for DVT, CKD stage 3, Asthma, COPD, Tuberculosis, DM2, GERD, Anxiety, Herpes Zoster, dementia, who present ER for complain of AMS. I did introduce myself to pt and her . Nurse report to me pt does not want to be admitted, so I asked pt if he want to be admitted. pt told he want to go to home. pt has hx of dementia, pt still has his right let medical provider to know what pt's wish is. Because I ask pt if he want to stay in the hospital, Pt's was very angry. she did not let me assess pt. she state to me " go away". However, I recognize pt has hx of dementia, according to his medical conditions, he qualifies for the observation status in the hospital, so I admit pt in observation unit. Because pt's did not let me assess pt, all the information is from the chart. Per triage nurse, pt was last known well yesterday. Pt drove car into back of his garage, he became confused, agitated and with right facial droop. pt was required to have Haldol to have image study in ER. In lab test in ER, pt has Na 132, BUN 33, creatinine 1.8. UA analysis reveals urine protein is 100H, urine occult blood is moderate, urine RBC is 6-10H. Other lab value is unremarkable. CT of head is unremarkable. pt is admitted in observation unit for TIA with confusion. History - Past Medical History Cardiovascular: reports: Deep vein thrombosis Respiratory: reports: Asthma, COPD, Pneumonia, Tuberculosis, Other Endocrine/Autoimmune: reports: Type 2 diabetes GI: reports: GERD : reports: None HEENT: reports: Other Psych: reports: Anxiety Musculoskeletal: reports: None Derm: reports: Herpes zoster MRSA Hx?: No - CONSULTS | PROCEDURES Procedures: 1. Head CT which shows no acute intracranial abnormality. Probable chronic subdural collection as described along the medial aspect of the left cerebellar hemisphere, stable finding. Hygroma versus prominent arachnoid cyst versus Danny cisterna magna. 2. Carotid Doppler study with moderate right and mild left carotid artery plaqu ing. No elevated artery velocities to suggest hemodynamically significant stenosis in either artery. Normal anterograde flow in bilateral vertebral arteries. - HOSPITAL COURSE Hospital Course: Patient was placed in observation status for monitoring of neurological status. Vital signs remained stable. He was mildly hypertensive at 156/90 5-1 60/90 blood pressure. Telemetry showed sinus rhythm with an occasional PVC. He had no further deterioration of his neurological exam. He manifested evidence of dementia through perseveration, forgetfulness, and emotional lability because he could not understand things. We did attempt to do an MRI of the head. However the patient laid down on the table, was lying quietly, once the magnet started and started pounding he could not take it. He was yelling, try to get off the table and we aborted the test. In the end it does not make it change in the management of his illness. This gentleman is already on an anticoagulant. We have added a statin for his therapy. is tearful, emotionally labile. Hates the idea that her was admitted observation status because it caused the more money. We did offer her transfer to the [facility] since her is service connected and she declined transfer. She is also wanting more help at home with him. His dementia is becoming more and more of a burden for her. He relies on her more more and they cannot leave the house because of it. He is getting more unsteady on his feet. As such I have asked home health to evaluate the home for safety, and social work help. She is also received a pamphlet to go to the senior resource center to see if there should be steps taken such as placing him in a alf facility. As for the rest of his medical problems of diabetes, history of COPD, chronic kidney disease, hypertension and hypothyroidism they remain stable. TSH is mildly hypothyroid at 10.35 but his free T4 is 1.04. This may be primary pituitary dysfunction as opposed to lack of adequate supplementation. Creatinine was 1.8 on admission and was 1.4 at discharge. A1c was 6.8%. At discharge his temperature was 36.9 pulse 85 blood pressure 160/90 respirations 16 and is 97% on room air. He is 5 foot 7 inches tall and weighs 98 kg. When not in distress this gentleman is very cooperative, pleasant. Follows commands. He is not aware of where he is, why he is here but he does recognize his . He does not know what date it is. He has baseline ataxia with wide-based gaze and occasionally shuffling and holding onto the furniture to maintain his balance. Neck is without JVD goiter or bruit. Lungs are clear to auscultation and percussion and a stocky barrel chest. PMI is normally placed with a regular rate and rhythm. The abdomen is obese, soft, nontender. Feet are without edema. He is asked to follow-up with his primary care provider. I have sent a prescription for statin to the [facility] pharmacy. And the is been given information to help her make arrangements for placing her .I am also asking him to follow-up with Dr. Santamaria to see if he really needs to stay on the blood thinners. This gentleman has chronic subdural hygromas. This indicates he is followed in the past, developed a small subdural, and is a chronic finding on CT. This may put him at risk for further bleeding considering he is on a powerful anticoagulant. - ALLERGIES Allergies/Adverse Reactions: Allergies Allergy/AdvReac Type Severity Reaction Status Date / Time JANNY Inhibitors Allergy Intermediate Unknown Verified 08/26/18 14:35 lovastatin Allergy Intermediate Headache Verified 08/26/18 14:35 tiotropium bromide * Allergy Intermediate Respiratory Verified 08/26/18 14:35 [From Spiriva with HandiHaler] azithromycin [From Zithromax] Allergy Unknown Unknown Verified 08/26/18 14:35 carvedilol [From Coreg] Allergy Unknown Unknown Verified 08/26/18 14:35 losartan [Losartan] Allergy Unknown Unknown Verified 08/26/18 14:35 metformin Allergy Unknown Unknown Verified 08/26/18 14:35 olmesartan medoxomil * Allergy Unknown Unknown Verified 08/26/18 14:35 [From Benicar] sitagliptin [From Januvia] Allergy Unknown Verified 08/26/18 14:35 - MEDICATIONS Home Medications: Ambulatory Orders Medication Instructions Recorded Confirmed Fluticasone/Salmeterol [Advair 1 puffs INH BID 07/30/13 08/26/18 250-50 Diskus] Insulin Glargine [Lantus] 23 units SUBQ DAILY 07/30/13 08/26/18 Ipratropium/Albuterol [Combivent 1 puffs INH QID 07/30/13 08/26/18 Respimat] Levothyroxine [Synthroid] 100 mcg PO QDAC 07/30/13 08/26/18 Montelukast [Singulair] 10 tab PO DAILY 07/30/13 08/26/18 Apixaban [Eliquis] 5 mg PO BID 02/16/16 08/26/18 Albuterol Sulfate [Proair Hfa 1 - 2 puffs INH Q4H 05/30/17 08/26/18 Inhaler] Cholecalciferol (Vitamin D3) 2,000 unit PO DAILY 05/30/17 08/26/18 [Vitamin D3] Ferrous Sulfate 325 mg PO DAILY 05/30/17 08/26/18 Glimepiride 1 mg PO DAILY 05/30/17 05/27/18 Latanoprost 0.005% Ophth Drops 1 drops EACHEYE QPM 05/30/17 08/26/18 [Xalatan Ophth Drops] Albuterol 2.5 mg INH Q4H PRN 08/26/18 08/26/18 Brinzolamide/Brimonidine Tart 1 drops EACHEYE TID 08/26/18 08/26/18 [Simbrinza 1%-0.2% Eye Drops] Diclofenac Sodium Dr [Voltaren] 75 mg PO BIDWM 08/26/18 08/26/18 Ipratropium [place] 1 - 2 spray DEVYN BID 08/26/18 08/26/18 Mupirocin 2% Oint [Bactroban 2% 1 applic TOP BID 08/26/18 08/26/18 Oint] Omeprazole 20 mg PO BIDAC 08/26/18 08/26/18 raNITIdine [Zantac] 150 mg PO BID 07/09/19 07/09/19 Simvastatin [Zocor] 10 mg PO DAILY #30 tablet 08/27/18 - LABS Result Diagrams: 08/27/18 05:45 08/27/18 05:45
== END 2018-08-27 14:39 | disposition home health service (06) ==
LOC: EDUNIT# → ED 14:21 → MS2 16:30
PROVIDERS: ADMIT Nurse Practitioner Gerontology; ATTEND Specialist
DX: G45.9 Transient cerebral ischemic attack, unspecified (principal); F03.90 Unspecified dementia, unspecified severity, without behavioral disturbance, psychotic disturbance, mood disturbance, and anxiety; J44.9 Chronic obstructive pulmonary disease, unspecified; E11.22 Type 2 diabetes mellitus with diabetic chronic kidney disease; I12.9 Hypertensive chronic kidney disease with stage 1 through stage 4 chronic kidney disease, or unspecified chronic kidney disease; N18.3 Chronic kidney disease, stage 3 (moderate); E87.1 Hypo-osmolality and hyponatremia; K21.9 Gastro-esophageal reflux disease without esophagitis; E03.9 Hypothyroidism, unspecified; G96.0 Cerebrospinal fluid leak; F41.9 Anxiety disorder, unspecified; R26.0 Ataxic gait; Z78.1 Physical restraint status; Z79.01 Long term (current) use of anticoagulants; Z86.718 Personal history of other venous thrombosis and embolism; Z87.01 Personal history of pneumonia (recurrent); Z79.51 Long term (current) use of inhaled steroids; Z79.899 Other long term (current) drug therapy; Z86.11 Personal history of tuberculosis; Z79.4 Long term (current) use of insulin
CPT/HCPCS: 36415; 70450; 80048; 80061; 81001; 82607; 83036; 83735; 84439; 84484; 85025; 93005; 93880; 94640; 96361; 96374; 96375; 96376; 99285; 99291; A9270; G0378; J1815; J2060; J7626; 80053; 81003; 83721; 84443; 87086

== ENCOUNTER 2018-09-05 17:24 | Observation (INO) | payer MEDICARE, OTHER ==
--- NOTE | 2018-09-05 17:29 | ED Physician Documentation ---
History of Present Illness - Stated complaint Stated Complaint: STROKE - History obtained from History obtained from: Patient, EMS - History of Present Illness Timing: Prior to arrival - Additonal information Additional information: Patient is an 83-year-old male with complicated past medical history including dementia and recent hospital admission for strokelike symptoms presenting from home with reportedly word salad, left-sided facial droop, confusion without specific other paresthesias or paralysis for the past 1 hour. Patient was reportedly slightly hostile and refusing transport initially. Patient denies headache, vision changes, nausea, vomiting, chest pain, difficulty breathing, abdominal pain, urinary changes, or stool changes. Patient himself also denies paresthesias, paralysis, slurred speech, facial droop or other concerns. Patient is anticoagulated on Eliquis. Review of Systems Eyes: denies: Loss of vision Cardiac: denies: Chest pain / pressure Respiratory: denies: Dyspnea, Cough GI: denies: Abdominal Pain, Nausea, Vomiting, Diarrhea : denies: Dysuria Neurologic: denies: Generalized weakness, Focal weakness, Numbness, Difficulty speaking, Confused PD PAST MEDICAL HISTORY - Past Medical History Cardiovascular: Deep vein thrombosis Respiratory: Asthma, COPD, Pneumonia, Tuberculosis, Other Neuro: Alzhiemer's, Dementia Endocrine/Autoimmune: Type 2 diabetes GI: GERD : None HEENT: Other Psych: Anxiety Musculoskeletal: None Derm: Herpes zoster - Past Surgical History Past Surgical History: Yes General: Colonoscopy, EGD Ortho: Knee replacement, Arthroscopic surgery, Other - Present Medications Home Medications: Ambulatory Orders Medication Instructions Recorded Confirmed RX: Fluticasone/Salmeterol [Advair 1 puffs INH BID 07/30/13 08/26/18 250-50 Diskus] RX: Insulin Glargine [Lantus] 23 units SUBQ DAILY 07/30/13 08/26/18 RX: Ipratropium/Albuterol 1 puffs INH QID 07/30/13 08/26/18 [Combivent Respimat] RX: Levothyroxine [Synthroid] 100 mcg PO QDAC 07/30/13 08/26/18 RX: Montelukast [Singulair] 10 tab PO DAILY 07/30/13 08/26/18 RX: Apixaban [Eliquis] 5 mg PO BID 02/16/16 08/26/18 RX: Albuterol Sulfate [Proair Hfa 1 - 2 puffs INH Q4H 05/30/17 08/26/18 Inhaler] RX: Cholecalciferol (Vitamin D3) 2,000 unit PO DAILY 05/30/17 08/26/18 [Vitamin D3] RX: Ferrous Sulfate 325 mg PO DAILY 05/30/17 08/26/18 RX: Glimepiride 1 mg PO DAILY 05/30/17 05/27/18 RX: Latanoprost 0.005% Ophth Drops 1 drops EACHEYE QPM 05/30/17 08/26/18 [Xalatan Ophth Drops] RX: Albuterol 2.5 mg INH Q4H PRN 08/26/18 08/26/18 RX: Brinzolamide/Brimonidine Tart 1 drops EACHEYE TID 08/26/18 08/26/18 [Simbrinza 1%-0.2% Eye Drops] RX: Diclofenac Sodium Dr [Voltaren] 75 mg PO BIDWM 08/26/18 08/26/18 RX: Ipratropium [place] 1 - 2 spray DEVYN BID 08/26/18 08/26/18 RX: Mupirocin 2% Oint [Bactroban 1 applic TOP BID 08/26/18 08/26/18 2% Oint] RX: Omeprazole 20 mg PO BIDAC 08/26/18 08/26/18 RX: raNITIdine [Zantac] 150 mg PO BID 08/26/18 08/26/18 RX: Simvastatin [Zocor] 10 mg PO DAILY #30 tablet 08/27/18 - Allergies Allergies/Adverse Reactions: Allergies Allergy/AdvReac Type Severity Reaction Status Date / Time JANNY Inhibitors Allergy Intermediate Unknown Verified 08/26/18 14:35 lovastatin Allergy Intermediate Headache Verified 08/26/18 14:35 tiotropium bromide * Allergy Intermediate Respiratory Verified 08/26/18 14:35 [From Spiriva with HandiHaler] azithromycin [From Zithromax] Allergy Unknown Unknown Verified 08/26/18 14:35 carvedilol [From Coreg] Allergy Unknown Unknown Verified 08/26/18 14:35 losartan [Losartan] Allergy Unknown Unknown Verified 08/26/18 14:35 metformin Allergy Unknown Unknown Verified 08/26/18 14:35 olmesartan medoxomil * Allergy Unknown Unknown Verified 08/26/18 14:35 [From Benicar] sitagliptin [From Januvia] Allergy Unknown Verified 08/26/18 14:35 - Social History Does the pt smoke?: No Smoking Status: Never smoker Does the pt drink ETOH?: Yes Does the pt have substance abuse?: No - Immunizations Immunizations are current?: Yes - POLST Patient has POLST: No PD ED PE NORMAL - Vitals Vital signs reviewed: Yes - General General: No acute distress, Well developed/nourished. No: Alert and oriented X 3 (Oriented but not to time) - HEENT HEENT: Atraumatic, PERRL (Gross visual acuity intact. No nystagmus.), EOMI, Moist mucous membranes - Neck Neck: Supple, no meningeal sign - Cardiac Cardiac: No murmur - Respiratory Respiratory: No respiratory distress, Clear bilaterally - Abdomen Abdomen: Normal bowel sounds, Soft, Non tender, Non distended - Derm Derm: Normal color, Warm and dry, No rash - Extremities Extremities: No deformity, No tenderness to palpate - Neuro Neuro: No sensory deficit, Normal speech. No: Alert and oriented X 3 (Oriented except to time), tip printer 2-12 intact (Left side facial droop) - Psych Psych: Normal mood, Normal affect Results - Vitals Vitals: Vital Signs - 24 hr 09/05/18 09/05/18 09/05/18 17:28 17:34 18:30 Temperature 36.5 C Heart Rate 87 89 94 Respiratory 16 21 17 Rate Blood Pressure 157/100 H 172/104 H 169/96 H O2 Saturation 97 98 09/05/18 09/05/18 19:00 19:30 Temperature Heart Rate 87 88 Respiratory 21 20 Rate Blood Pressure 159/92 H 174/90 H O2 Saturation 98 98 Oxygen O2 Source Room air - EKG (time done) 1741 Rate: Rate (enter#) (94) Rhythm: NSR Intervals: RBBB Ischemia: Non specific changes Compare to prior EKG: Unchanged from prior EKG - Labs Labs: Laboratory Tests 09/05/18 09/05/18 09/05/18 17:43 17:43 17:43 WBC 9.3 RBC 4.24 L Hgb 13.0 L Hct 38.1 L MCV 89.9 MCH 30.7 MCHC 34.1 RDW 12.6 Plt Count 261 MPV 9.1 Neut # (Auto) 5.7 Lymph # (Auto) 2.1 [place] # (Auto) 1.1 H Eos # (Auto) 0.4 Baso # (Auto) 0.1 Absolute Nucleated RBC 0.00 Nucleated RBC % 0.0 PT 13.2 H INR 1.2 APTT 30.1 Sodium 131 L Potassium 4.4 Chloride 95 L Carbon Dioxide 22 Anion Gap 14.0 H BUN 33 H Creatinine 1.8 H Estimated GFR (MDRD) 36 L Glucose 91 Calcium 8.9 Total Bilirubin 0.8 AST 24 ALT 41 Alkaline Phosphatase 43 Troponin I Troponin I High Sens Total Protein 7.3 Albumin 4.1 Globulin 3.2 Albumin/Globulin Ratio 1.3 Lipase 43 TSH Free T4 Urine Color Urine Clarity Urine pH Ur Specific [place] Urine Protein Urine Glucose (UA) Urine Ketones Urine Occult Blood Urine Nitrite Urine Bilirubin Urine Urobilinogen Ur Leukocyte Esterase Ur Microscopic Review Urine Culture Comments Urine Opiates Screen Ur Oxycodone Screen Urine Methadone Screen Ur Propoxyphene Screen Ur Barbiturates Screen Ur Tricyclics Screen Ur Phencyclidine Scrn Ur Amphetamine Screen U Methamphetamines Scrn U Benzodiazepines Scrn Urine Cocaine Screen U Cannabinoids Screen Ethyl Alcohol < 5.0 09/05/18 09/05/18 09/05/18 17:43 17:43 17:43 WBC RBC Hgb Hct MCV MCH MCHC RDW Plt Count MPV Neut # (Auto) Lymph # (Auto) [place] # (Auto) Eos # (Auto) Baso # (Auto) Absolute Nucleated RBC Nucleated RBC % PT INR APTT Sodium Potassium Chloride Carbon Dioxide Anion Gap BUN Creatinine Estimated GFR (MDRD) Glucose Calcium Total Bilirubin AST ALT Alkaline Phosphatase Troponin I < 0.04 Troponin I High Sens 8.9 Total Protein Albumin Globulin Albumin/Globulin Ratio Lipase TSH 11.77 H Free T4 0.88 Urine Color Urine Clarity Urine pH Ur Specific [place] Urine Protein Urine Glucose (UA) Urine Ketones Urine Occult Blood Urine Nitrite Urine Bilirubin Urine Urobilinogen Ur Leukocyte Esterase Ur Microscopic Review Urine Culture Comments Urine Opiates Screen Ur Oxycodone Screen Urine Methadone Screen Ur Propoxyphene Screen Ur Barbiturates Screen Ur Tricyclics Screen Ur Phencyclidine Scrn Ur Amphetamine Screen U Methamphetamines Scrn U Benzodiazepines Scrn Urine Cocaine Screen U Cannabinoids Screen Ethyl Alcohol 09/05/18 18:34 WBC RBC Hgb Hct MCV MCH MCHC RDW Plt Count MPV Neut # (Auto) Lymph # (Auto) [place] # (Auto) Eos # (Auto) Baso # (Auto) Absolute Nucleated RBC Nucleated RBC % PT INR APTT Sodium Potassium Chloride Carbon Dioxide Anion Gap BUN Creatinine Estimated GFR (MDRD) Glucose Calcium Total Bilirubin AST ALT Alkaline Phosphatase Troponin I Troponin I High Sens Total Protein Albumin Globulin Albumin/Globulin Ratio Lipase TSH Free T4 Urine Color YELLOW Urine Clarity CLEAR Urine pH 6.0 Ur Specific [place] <=1.005 Urine Protein TRACE Urine Glucose (UA) NEGATIVE Urine Ketones NEGATIVE Urine Occult Blood NEGATIVE Urine Nitrite NEGATIVE Urine Bilirubin NEGATIVE Urine Urobilinogen 0.2 (NORMAL) Ur Leukocyte Esterase NEGATIVE Ur Microscopic Review NOT INDICATED Urine Culture Comments NOT INDICATED Urine Opiates Screen NEGATIVE Ur Oxycodone Screen NEGATIVE Urine Methadone Screen NEGATIVE Ur Propoxyphene Screen NEGATIVE Ur Barbiturates Screen NEGATIVE Ur Tricyclics Screen NEGATIVE Ur Phencyclidine Scrn NEGATIVE Ur Amphetamine Screen NEGATIVE U Methamphetamines Scrn NEGATIVE U Benzodiazepines Scrn NEGATIVE Urine Cocaine Screen NEGATIVE U Cannabinoids Screen NEGATIVE Ethyl Alcohol PD MEDICAL DECISION MAKING - ED course Complexity details: reviewed results, re-evaluated patient, considered differential, d/w patient, d/w family, d/w clinical science consultant ED course: Patient presenting with concerns for stroke like symptoms. Patient evaluated by physician immediately upon arrival and did not find evidence of neurological deficit except for left-sided facial droop. Patient does have known dementia, but patient is oriented except for to time. CT head without, as well as CTA brain and neck obtained to further evaluate for possible neurological insult, but returned without pathology. Screening lab work and urinalysis, as well as EKG, also obtained which not find evidence of other acute pathology at this time. Tele-neurology consulted who recommended admission and MRI, as the patient is not a candidate for TPA at this time. Patient and amenable to this plan. Spoke with hospitalist who agreed to admit. Departure - Departure Disposition: ED Place in Observation Clinical Impression: Stroke-like symptoms Discharge Date/Time: 09/05/18 20:25
[2018-09-05] MEDS ORDERED: IOVERSOL 320 100 ML VIAL IVP ONE ×3 (17:44→18:34)
[2018-09-05 17:48] LABS: BASOPHILS # (AUTO) 0.1 10^3/uL (0.0-0.1); BASOPHILS % (AUTO) 0.8 %; EOSINOPHILS # (AUTO) 0.4 10^3/uL (0.0-0.7); EOSINOPHILS % (AUTO) 3.8 %; LYMPHOCYTES # (AUTO) 2.1 10^3/uL (1.5-3.5); LYMPHOCYTES % (AUTO) 22.1 %; MEAN CORPUSCULAR HEMOGLOBIN 30.7 pg (27.0-31.0); MEAN CORPUSCULAR HGB CONC 34.1 g/dL (32.0-36.0); MEAN CORPUSCULAR VOLUME 89.9 fL (80.0-94.0); MEAN PLATELET VOLUME 9.1 fL (7.4-11.4); MONOCYTES # (AUTO) 1.1 10^3/uL (0.0-1.0); MONOCYTES % (AUTO) 11.4 %; NEUTROPHILS # (AUTO) 5.7 10^3/uL (1.5-6.6); NEUTROPHILS % (AUTO) 61.3 %; PLT - PLATELET COUNT 261 10^3/uL (130-450); RED BLOOD COUNT 4.24 10^6/uL (4.70-6.10); RED CELL DISTRIBUTION WIDTH 12.6 % (12.0-15.0); WHITE BLOOD COUNT 9.3 x10^3/uL (4.8-10.8)
[2018-09-05 17:55] LABS: INR 1.2 (0.8-1.2); PT - PROTHROMBIN TIME 13.2 secs (9.9-12.6)
[2018-09-05 18:02] LABS: PARTIAL THROMBOPLASTIN TIME 30.1 secs (24.9-33.3)
[2018-09-05 18:03] LABS: ALBUMIN 4.1 g/dL (3.2-5.5); ALBUMIN/GLOBULIN RATIO 1.3 (1.0-2.2); ALKALINE PHOSPHATASE 43 IU/L (42-121); ALT ALANINE AMINOTRANSFERASE 41 IU/L (10-60); AST ASPARTATE AMINOTRANSFERASE 24 IU/L (10-42); BILIRUBIN,TOTAL 0.8 mg/dL (0.2-1.0); BUN - BLOOD UREA NITROGEN 33 mg/dL (6-20); CALCIUM 8.9 mg/dL (8.5-10.3); CARBON DIOXIDE - CO2 22 mmol/L (21-32); CHLORIDE 95 mmol/L (101-111); CREATININE 1.8 mg/dL (0.6-1.2); GFR - MDRD 36 (>89); GLUCOSE 91 mg/dL (70-100); LIPASE 43 U/L (22-51); SODIUM 131 mmol/L (135-145); TOTAL PROTEIN 7.3 g/dL (6.7-8.2)
[2018-09-05 18:08] LABS: TROPONIN I < 0.04 ng/mL (<0.49)
--- NOTE | 2018-09-05 18:32 | CT Report ---
Reason: stroke Procedure Date: 09/05/2018 Accession Number: [id number] / [id number] Procedure: CT - Head W/O Stroke Protocol CPT Code: FULL RESULT: EXAM: CT HEAD EXAM DATE: 09/05/2018 05:52 PM. CLINICAL HISTORY: Stroke. COMPARISON: 08/26/2018. TECHNIQUE: Multiaxial CT images were obtained from the foramen magnum to the vertex. Reformats: Sagittal and coronal. IV contrast: None. In accordance with CT protocol optimization, one or more of the following dose reduction techniques were utilized for this exam: automated exposure control, adjustment of mA and/or KV based on patient size, or use of iterative reconstructive technique. FINDINGS: Parenchyma: There is chronic encephalomalacia and volume loss in the medial left cerebellum. There is a moderate degree of diffuse periventricular white matter hypodensity. Negative for acute hemorrhage. No midline shift. Extraaxial Spaces: No subdural or epidural collections identified. Ventricles: The ventricles appear enlarged but are unchanged and symmetric in appearance. Sinuses and Orbits: Imaged paranasal sinuses, orbits, and mastoids show no significant abnormality. Bones: No acute fracture. Other: None. IMPRESSION: 1. No acute hemorrhage, localizing edema or mass-effect. 2. Chronic encephalomalacia in left medial cerebellum unchanged. 3. Moderate diffuse white matter disease. Nonspecific but most commonly attributed to sequela of chronic microangiopathy. RADIA The critical test notification system was initiated by Dr. Humberto Jeffers at 06:31 PM on 09/05/2018. ADDENDUM: 09/05/18 18:41 The above critical test findings were discussed with Lisa Fernandez by Dr. Humberto Jeffers at 06:41 PM on 09/05/2018.
[2018-09-05 18:39] LABS: MUDS CUTOFF CONCENTRATIONS CUTOFF CONC BELOW:
[2018-09-05 18:48] LABS: BILIRUBIN,URINE NEGATIVE (NEGATIVE); GLUCOSE, URINE (UA) NEGATIVE (NEGATIVE); KETONES,URINE (UA) NEGATIVE (NEGATIVE); LEUKOCYTE ESTERASE, URINE NEGATIVE (NEGATIVE); NITRITE,URINE NEGATIVE (NEGATIVE); OCCULT BLOOD,URINE NEGATIVE (NEGATIVE); PROTEIN,URINE TRACE mg/dL (NEGATIVE); UROBILINOGEN,URINE 0.2 (NORMAL) E.U./dL (NORMAL)
[2018-09-05 18:53] LABS: AMPHETAMINE SCREEN,URINE NEGATIVE (NEGATIVE); BENZODIAZEPINES SCREEN, URINE NEGATIVE (NEGATIVE); CLARITY,URINE CLEAR (CLEAR); COCAINE SCREEN URINE NEGATIVE (NEGATIVE); METHADONE SCREEN, URINE NEGATIVE (NEGATIVE); METHAMPHETAMINES SCREEN, URINE NEGATIVE (NEGATIVE); OPIATE SCREEN, URINE NEGATIVE (NEGATIVE); OXYCODONE SCREEN, URINE NEGATIVE (NEGATIVE); PROPOXYPHENE SCREEN, URINE NEGATIVE (NEGATIVE); TRICYCLIC ANTIDEPRESSANT,URINE NEGATIVE (NEGATIVE)
--- NOTE | 2018-09-05 18:58 | CT Report ---
Reason: L sided facial droop Procedure Date: 09/05/2018 Accession Number: [id number] / [id number] Procedure: CT - ANGIO HEAD W/WO CPT Code: FULL RESULT: EXAM: CT ANGIOGRAM HEAD. EXAM DATE: 09/05/2018 06:27 PM CLINICAL HISTORY: 83-year-old man with left-sided facial droop. COMPARISON: HEAD ANGIO 09/05/2018 5:52 PM. TECHNIQUE: - CT Angiogram: Using a multidetector scanner, high-resolution axial images were acquired from the skull base through vertex following rapid infusion of intravenous contrast. Reformats: Multiplanar MIP reformats were reconstructed. Nascet criteria used for stenosis measurement. IV Contrast: OPTI 320 80ML. In accordance with CT protocol optimization, one or more of the following dose reduction techniques were utilized for this exam: automated exposure control, adjustment of mA and/or KV based on patient size, or use of iterative reconstructive technique. FINDINGS: CTA HEAD: RIGHT: - Visualized Internal Carotid: Patent without significant stenosis or aneurysm. There is calcified atherosclerotic plaque along the siphon. - Anterior Cerebral: Patent without significant stenosis or aneurysm. - Middle Cerebral: The proximal arteries patent without significant stenosis or aneurysm. A distal branch along the posterior frontal operculum is irregular, likely with at least moderate stenosis (50-70% luminal narrowing; for example, image 139, series 9). - Posterior Cerebral: Patent without significant stenosis or aneurysm. The arteries supplied by the posterior communicating artery ( origin), a normal variant. - Posterior Communicating: Patent. No aneurysm. - Visualized Vertebral: Patent without significant stenosis or dissection. The PICA is patent. LEFT: - Visualized Internal Carotid: Patent without significant stenosis or aneurysm. There is calcified atherosclerotic plaque along the siphon. - Anterior Cerebral: Patent without significant stenosis or aneurysm. - Middle Cerebral: Patent without significant stenosis or aneurysm. - Posterior Cerebral: Patent without aneurysm. There is mild focal stenosis approximately 50% luminal narrowing) along the P2 segment. - Posterior Communicating: Not well seen. - Visualized Vertebral: Patent without significant stenosis or dissection. Calcified atherosclerotic plaque is present along the intradural segment proximal to the PICA, but stenosis is less than 50%. The PICA is patent. CENTRAL: - Anterior Communicating: Patent. No aneurysm. - Basilar: Patent without significant stenosis, dissection, or aneurysm. Dural Venous Sinuses and Major Central Veins: Patent. IMPRESSION: 1. No large vessel occlusion. 2. The proximal right MCA is patent without significant stenosis, but there is a distal branch (likely M4) along with the right posterior frontal operculum that is irregular, likely with at least moderate stenosis (50-70% luminal narrowing). RADIA
--- NOTE | 2018-09-05 18:59 | CT Report ---
Reason: L sided facial droop, L neck pain Procedure Date: 09/05/2018 Accession Number: [id number] / [id number] Procedure: CT - ANGIO NECK W CPT Code: FULL RESULT: EXAM: CT ANGIOGRAM NECK EXAM DATE: 09/05/2018 06:24 PM. CLINICAL HISTORY: 83-year-old man with left-sided facial droop and left neck pain. COMPARISON: HEAD ANGIO 09/05/2018 5:52 PM. TECHNIQUE: Routine axial helical imaging was performed from the skull base through the aortic arch. Reconstructions: Routine multiplanar 3D MIP reconstructions. IV Contrast: OPTI 320 80ML. Evaluation of arterial stenosis is based on a NASCET method of measurement. In accordance with CT protocol optimization, one or more of the following dose reduction techniques were utilized for this exam: automated exposure control, adjustment of mA and/or KV based on patient size, or use of iterative reconstructive technique. FINDINGS: RIGHT: - Common and Internal Carotid: Patent without signficant stenosis. There is mild calcified atherosclerotic plaque at the bifurcation and along the siphon. Stenosis by NASCET criteria: 0%. No evidence of dissection. No evidence of aneurysm along intracranial ICA. - External Carotid: Unremarkable. - Vertebral: Patent without significant stenosis. No evidence of dissection. There is mild calcified atherosclerotic plaque at the origin. LEFT: - Common and Internal Carotid: Patent without signficant stenosis. There is mild calcified atherosclerotic plaque at the bifurcation and along the siphon. Stenosis by NASCET criteria: 0%. No evidence of dissection. No evidence of aneurysm along intracranial ICA. - External Carotid: Unremarkable. - Vertebral: Densely calcified atherosclerotic plaque at the origin likely results in at least moderate stenosis (50-70% luminal narrowing), but beam hardening artifact limits evaluation. The remainder of the arteries patent without significant stenosis. No evidence of dissection. SOFT TISSUES AND BONES: Visualized soft tissues are unremarkable. Lung apices demonstrate mild scarring and atelectasis. No evidence of acute fracture or malalignment of the cervical spine, but there are multilevel degenerative changes, worst at C5-C6 and C6-C7. IMPRESSION: 1. Carotid arteries are patent without significant stenosis or dissection. 2. At least moderate stenosis at the origin of the left vertebral artery secondary to calcified atherosclerotic plaque. The remainder of the arteries of patent without significant stenosis or dissection. 3. The right vertebral artery is patent without significant stenosis or dissection. RADIA
[2018-09-05 20:30] LABS: INR 1.2 (0.8-1.2); PT - PROTHROMBIN TIME 13.1 secs (9.9-12.6)
[2018-09-05] MEDS ORDERED: SODIUM CHLORIDE 0.9% 1,000 ML IV SCH (21:00)
--- NOTE | 2018-09-05 21:16 | HISTORY & PHYSICAL EXAMINATION ---
Chief Complaint - Chief Complaint Chief Complaint: confusion, right facial droop History of Present Illness - Admitted From Admitted From:: [facility] ED - History Obtained From Records Reviewed: yes History obtained from: patient and - History of Present Illness HPI Comment/Other: Patient seen on 09/05/18 around 20:00pm Patient is an 83 y/o male with Hx of Dementia who presented to the ED via EMS with confusion and right facial droop. After using the restroom at home, he could not remember to pull up his pants or how to work the belt button. His also reported a right facial droop. After this incident, he decided that they (his and himself) should go out for dinner at [employer] in [place]. He was going to drive from their house in [place]. His noticed his actions while driving were concerning/ unsafe and diverted the trip to their friend's home since they were nearby. However the friends were not home. As a result of calling out the friend's neighbor came out. After asking the patient some questions which he could not answer, EMS was called and the patient was brought to the ED. At bedside, his wanted to know why he was in the hospital. Then he began mildly agitating that he wanted to be at the [place]. His was at bedside after haven been driven to the hospital by their friend's neighbor and she help with the history. She was insistent that he stay in the hospital for work up. She explained that the last time the MRI could not be done because the patient could not stay still because of sensitivity to noise and that she was informed that he would need sedation for an MRI. Also they were asked to follow up with their PCP for an echo but they were not able to get an appointment until 09/15/18. The patient does not have any significant neurological deficits at the moment. He is being admitted for a stroke vs TIA work up. He denies chest pain, WILTON, abd pain, nausea, vomiting, fever or chills. The rest of the history is unremarkable. History - Past Medical History Cardiovascular: reports: Deep vein thrombosis Respiratory: reports: Asthma, COPD, Pneumonia, Tuberculosis, Other Neuro: reports: Alzhiemer's, Dementia Endocrine/Autoimmune: reports: Type 2 diabetes GI: reports: GERD : reports: None HEENT: reports: Other Psych: reports: Anxiety Musculoskeletal: reports: None Derm: reports: Herpes zoster MRSA Hx?: No - Past Surgical History General: reports: Colonoscopy, EGD Ortho: reports: Knee replacement, Arthroscopic surgery, Other - Family & Social History Family History Comment/Other: Patient has dementia and as a result cannot give accurate report. denies any known family history of any significant disease Social History Notes: Patient sokes in the 60's and 70's but quite smoking more than 30 years ago. He drinks about 2 beers daily. No illicit drug use. He lives with his in [place]. He has a walker and cane at home to assist in gettting around - POLST Patient has POLST: No POLST Status: Full Code Meds/Allgy - Home Medications Home Medications: Ambulatory Orders Medication Instructions Recorded Confirmed Fluticasone/Salmeterol [Advair 1 puffs INH BID 07/30/13 08/26/18 250-50 Diskus] Insulin Glargine [Lantus] 23 units SUBQ DAILY 07/30/13 08/26/18 Ipratropium/Albuterol [Combivent 1 puffs INH QID 07/30/13 08/26/18 Respimat] Levothyroxine [Synthroid] 100 mcg PO QDAC 07/30/13 08/26/18 Montelukast [Singulair] 10 tab PO DAILY 07/30/13 08/26/18 Apixaban [Eliquis] 5 mg PO BID 02/16/16 08/26/18 Albuterol Sulfate [Proair Hfa 1 - 2 puffs INH Q4H 05/30/17 08/26/18 Inhaler] Cholecalciferol (Vitamin D3) 2,000 unit PO DAILY 05/30/17 08/26/18 [Vitamin D3] Ferrous Sulfate 325 mg PO DAILY 05/30/17 08/26/18 Glimepiride 1 mg PO DAILY 05/30/17 05/27/18 Latanoprost 0.005% Ophth Drops 1 drops EACHEYE QPM 05/30/17 08/26/18 [Xalatan Ophth Drops] Albuterol 2.5 mg INH Q4H PRN 08/26/18 08/26/18 Brinzolamide/Brimonidine Tart 1 drops EACHEYE TID 08/26/18 08/26/18 [Simbrinza 1%-0.2% Eye Drops] Diclofenac Sodium Dr [Voltaren] 75 mg PO BIDWM 08/26/18 08/26/18 Ipratropium [place] 1 - 2 spray DEVYN BID 08/26/18 08/26/18 Mupirocin 2% Oint [Bactroban 2% 1 applic TOP BID 08/26/18 08/26/18 Oint] Omeprazole 20 mg PO BIDAC 08/26/18 08/26/18 raNITIdine [Zantac] 150 mg PO BID 08/26/18 08/26/18 Simvastatin [Zocor] 10 mg PO DAILY #30 tablet 08/27/18 - Allergies Allergies/Adverse Reactions: Allergies Allergy/AdvReac Type Severity Reaction Status Date / Time JANNY Inhibitors Allergy Intermediate Unknown Verified 08/26/18 14:35 lovastatin Allergy Intermediate Headache Verified 08/26/18 14:35 tiotropium bromide * Allergy Intermediate Respiratory Verified 08/26/18 14:35 [From Spiriva with HandiHaler] azithromycin [From Zithromax] Allergy Unknown Unknown Verified 08/26/18 14:35 carvedilol [From Coreg] Allergy Unknown Unknown Verified 08/26/18 14:35 losartan [Losartan] Allergy Unknown Unknown Verified 08/26/18 14:35 metformin Allergy Unknown Unknown Verified 08/26/18 14:35 olmesartan medoxomil * Allergy Unknown Unknown Verified 08/26/18 14:35 [From Benicar] sitagliptin [From Januvia] Allergy Unknown Verified 08/26/18 14:35 Review of Systems - Constitutional Constitutional: denies: Fever, Chills - Eyes Eyes: reports: Corrective lenses. denies: Blurred vision, Vision loss, Dipolpia - Ears, Nose & Throat Ears, Nose & Throat: denies: Vertigo, Sore throat, Hoarseness - Cardiovascular Cariovascular: denies: Irregular heart rate, Palpitations, Chest pain, Edema, Lightheadedness, Syncope, Exertional dyspnea - Respiratory Respiratory: denies: Cough, Sputum production, Wheezing, SOB at rest, SOB with exertion - Gastrointestinal Gastrointestinal: denies: Abdominal pain, Abdominal distention, Constipation, Nausea, Vomiting, Reflux/heartburn - Genitourinary Genitourinary: denies: Dysuria, Frequency, Urgency, Hematuria - Musculoskeletal Musculoskeletal: denies: Muscle pain, Back pain, Muscle aches, Stiffness, Gout, Joint pain - Integumentary Integumentary: denies: Rash, Pruritis, Lesions, Dryness - Neurological Neurological: denies: General weakness, Focal weakness, Dizziness, Slurred speech - Psychiatric Psychiatric: denies: Depression, Anxiety - Endocrine Endocrine: denies: Polyuria, Polydypsia - Hematologic/Lymphatic Hematologic/Lymphatic: denies: Anemia, Bruising Prior Level of Functionality: He lives with his in [place]. He has a walker and cane at home to assist in getting around. He is independent of activities of daily living Exam - Vital Signs Vital Signs: Vital Signs x48h Temp Pulse Resp BP Pulse Ox 09/05/18 19:30 88 20 174/90 H 98 09/05/18 19:00 87 21 159/92 H 98 09/05/18 18:30 94 17 169/96 H 98 09/05/18 17:34 89 21 172/104 H 09/05/18 17:28 36.5 C 87 16 157/100 H 97 - Physical Exam General Appearance: positive: No acute distress, Alert Eyes Bilateral: positive: Normal inspection, PERRL, EOMI ENT: positive: ENT inspection nml, No signs of dehydration Neck: positive: Nml inspection, No JVD, Trachea midline Respiratory: positive: Chest non-tender, No respiratory distress, Breath sounds nml. negative: Wheezes, Rales, Rhonchi Cardiovascular: positive: Regular rate & rhythm, No murmur Abdomen: positive: Non-tender, No organomegaly, Nml bowel sounds, No distention. negative: Guarding, Rebound Back: positive: Nml inspection Skin: positive: Color nml, No rash, Warm Extremities: positive: Non-tender, Full ROM, Nml appearance, No pedal edema Neurologic/Psychiatric: positive: Oriented x3, CN's nml (2-12), Motor nml, Facial droop (slight right facial droop) Conclusion/Plan - Problem List (1) Stroke-like symptoms Conclusion/Plan: Stroke work up ordered MRI of brain w/o contrast. Patient will need sedation for imaging 2D echo. Lipid panel. On simvastatin Neuro checks qshift (2) DVT (deep venous thrombosis) Conclusion/Plan: On eliquis (3) Diabetes mellitus Conclusion/Plan: Will hold glipezide Continue lantus 23 units subq daily Qualifiers: Diabetes mellitus type: type 2 (4) Hypothyroidism Conclusion/Plan: On synthroid (5) GERD (gastroesophageal reflux disease) Conclusion/Plan: Will order protonix (6) COPD (chronic obstructive pulmonary disease) Conclusion/Plan: Will resume home regimen (7) Dementia Conclusion/Plan: Patient is fairly independent of activities of daily living. However, he still drives. While driving today his behavior was concerning enough to worry his . I discussed this with his and adviced that this should be discussed at the next PCP visit on 09/15/18. Patient is like need an eval and it is my opinion that for his safety and that of other pedestrians, he should not be driving - Lab Results Fish Bones: 09/05/18 17:43 09/05/18 17:43 Core Measures - Anticipated LOS I expect patient to be DC'd or transferred within 96 hours.: Yes - DVT/VTE - Prophylaxis VTE/DVT Device ordered at admit?: Yes VTE/DVT Prophylaxis med ordered at admit?: Yes
[2018-09-05] MEDS: SODIUM CHLORIDE 0.9% 1,000 ML IV SCH (21:17)
[2018-09-05] MEDS ORDERED: SODIUM CHLORIDE FLUSH 0.9% 10 ML SYRINGE ONE ×2 (21:20→23:45)
[2018-09-05] MEDS ORDERED: HALOPERIDOL 5 MG/ML VIAL IVP PRN (22:39)
[2018-09-06] MEDS: SODIUM CHLORIDE 0.9% 1,000 ML IV SCH ×2 (05:21→15:46)
[2018-09-06 06:24] LABS: BASOPHILS # (AUTO) 0.1 10^3/uL (0.0-0.1); BASOPHILS % (AUTO) 1.1 %; EOSINOPHILS # (AUTO) 0.3 10^3/uL (0.0-0.7); EOSINOPHILS % (AUTO) 3.4 %; LYMPHOCYTES # (AUTO) 1.5 10^3/uL (1.5-3.5); LYMPHOCYTES % (AUTO) 20.5 %; MEAN CORPUSCULAR HEMOGLOBIN 29.6 pg (27.0-31.0); MEAN CORPUSCULAR HGB CONC 32.9 g/dL (32.0-36.0); MEAN PLATELET VOLUME 9.3 fL (7.4-11.4); MONOCYTES # (AUTO) 0.8 10^3/uL (0.0-1.0); MONOCYTES % (AUTO) 10.8 %; NEUTROPHILS # (AUTO) 4.7 10^3/uL (1.5-6.6); NEUTROPHILS % (AUTO) 63.8 %; PLT - PLATELET COUNT 273 10^3/uL (130-450); RED BLOOD COUNT 4.39 10^6/uL (4.70-6.10); RED CELL DISTRIBUTION WIDTH 12.8 % (12.0-15.0); WHITE BLOOD COUNT 7.3 x10^3/uL (4.8-10.8)
[2018-09-06] MEDS: PANTOPRAZOLE 40 MG TABLET PO SCH (06:24)
[2018-09-06 06:43] LABS: BUN - BLOOD UREA NITROGEN 26 mg/dL (6-20); CALCIUM 8.9 mg/dL (8.5-10.3); CARBON DIOXIDE - CO2 24 mmol/L (21-32); CHLORIDE 100 mmol/L (101-111); CHOL/HDL RATIO 3.3 (<5.0); CHOLESTEROL 163 mg/dL; CREATININE 1.5 mg/dL (0.6-1.2); GFR - MDRD 45 (>89); GLUCOSE 111 mg/dL (70-100); HDL CHOLESTEROL 50 mg/dL; LDL CHOLESTEROL,CALCULATED 95 mg/dL; LDL/HDL RATIO 1.9 (<3.6); SODIUM 136 mmol/L (135-145); VLDL CHOLESTEROL 18 mg/dL
[2018-09-06] MEDS ORDERED: HALOPERIDOL 5 MG/ML VIAL IVP PRN ×2 (07:15→18:04)
[2018-09-06] MEDS ORDERED: ALBUTEROL NEB 2.5 MG/3 ML INH SCH (07:59)
[2018-09-06 08:38] LABS: HB2 TOTAL 14.3 g/dL; HEMOGLOBIN A1C 0.7 g/dL; HEMOGLOBIN A1C % 6.6 % (4.6-6.2)
[2018-09-06] MEDS: DICLOFENAC SODIUM DR 75 MG TABLET PO SCH ×2 (09:13→16:26)
[2018-09-06] MEDS: FERROUS SULFATE 325 MG TABLET PO SCH (09:13)
[2018-09-06] MEDS: MONTELUKAST 10 MG TABLET PO SCH (09:13)
[2018-09-06] MEDS: LEVOTHYROXINE 100 MCG TABLET PO SCH (09:13)
[2018-09-06] MEDS: ASPIRIN EC 81 MG TABLET PO SCH (09:14)
[2018-09-06] MEDS: INSULIN GLARGINE 300 UNIT/3 ML PEN SUBQ SCH (09:15)
[2018-09-06] MEDS: APIXABAN 5 MG TABLET PO SCH ×2 (09:15→22:14)
[2018-09-06] MEDS ORDERED: HALOPERIDOL 5 MG/ML VIAL IVP SCH (10:00)
--- NOTE | 2018-09-06 15:39 | MRI Report ---
Reason: left sided facial droop Procedure Date: 09/06/2018 Accession Number: [id number] / [id number] Procedure: MRI - Brain W/O CPT Code: FULL RESULT: EXAM: MRI BRAIN WITHOUT CONTRAST EXAM DATE: 09/06/2018 02:53 PM. CLINICAL HISTORY: Left sided facial droop. COMPARISON: Prior CT angiogram head/neck 09/05/2018. TECHNIQUE: Multiplanar, multisequence T1-weighted and fluid-sensitive MR sequences of the brain were performed. Sequences optimized for routine evaluation. Other: None. IV Contrast: None. Findings: Relevant images are indicated (image number, series number). There is no acute/subacute ischemic change of the brain there is marked brain atrophy, marked scattered dense white matter disease, marked and story ventricular enlargement. Basal cisterns patent. Small old bilateral cerebellar strokes. Orbital contents negative. Suspected old ischemic disease left thalamus. Pituitary negative. Moderate midbrain atrophy. Craniocervical junction negative. Impressions: 1. No acute/subacute ischemic change. 2. Again seen marked brain atrophy, marked scattered dense white matter disease most likely related to chronic small vessel ischemic disease. RADIA
--- NOTE | 2018-09-06 17:46 | PROVIDER PROGRESS NOTE ---
Assessment/Plan - Problem List (1) Stroke-like symptoms Assessment/Plan: The facial droop has resolved. The brain MRI was able to be completed using Haldol iv sedation pre-scan. It showed no stroke, but marked brain atrophy and diffuse vascular changes. Continue ASA. A Speech Therapy consult was ordered, possibly for evaluating swallowing, but he is eating solids, on his own. Will cancel ST eval. No Echo imaging is available in this hospital over the weekend, today or tomorrow, to evaluate for cardiac source of embolism. (2) Dementia Qualifiers: Dementia behavioral disturbance: with behavioral disturbance Assessment/Plan: The brain MRI showed no stroke, but marked brain atrophy and diffuse vascular changes. This is consistent with his Dx in the record, of vascular dementia. An OT eval was ordered regarding cognition, But there is no OT service at this hospital on Saturday and Saturday. The reports significant behavioral problems at home, besides the confusion regarding pulling up his pants and driving erratically yesterday: She says he does whatever he wants and does not follow advice, he is stubborn and does not l isten to her, he was told not to drive but continues to drive, he threatens her by showing her a fist if she states that she will drive. (The showed us her [employer] License as proof). Today he was screaming at his and, at a separate time, screaming at his nurse in his room. He was pulling his call light incessantly this afternoon, as soon as he was alone in the room, and 2 RNs, a WAX MOLDER and the Accounting Representative had to step in. I will add prn Haldol for agitation. I will start scheduled Zyprexa for treating agitation or possible ing. We had a phone conversation with the daughter Maile in [place], myself, the and the SW Deisy today. The patient cannot be discharged to home under the care of his , because he will try to drive, therefore it is felt to be not a safe discharge. He will need caregivers or placement, which the SW, daughter and will start working on. (3) Acute on chronic renal insufficiency Assessment/Plan: Patient received IV hydration for 1 day, now he is trying to pull out his IV line. His BUN/creatinine ratio is improving. We will discontinue the IV fluids, promote oral hydration. Follow BMP while here. (4) Diabetes mellitus Qualifiers: Diabetes mellitus type: type 2 Assessment/Plan: He is on a carb controlled diet and sliding scale insulin (5) Hx of deep venous thrombosis Assessment/Plan: He remains on his prehospital Eliquis dose. (6) COPD (chronic obstructive pulmonary disease) Assessment/Plan: Stable pulmonary status, he is on his home regimen while here (7) Hypothyroidism Assessment/Plan: He is on his home dose of Synthroid replacement while here - Current Meds Current Meds: Current Medications Generic Name Dose Route Start Last Admin Trade Name Freq PRN Reason Stop Dose Admin Apixaban 5 mg 09/06/18 09:00 09/06/18 09:15 Eliquis PO 5 mg BID JULIUS Administration Aspirin 81 mg 09/06/18 09:00 09/06/18 09:14 Ecotrin PO 81 mg DAILY JULIUS Administration Diclofenac Sodium 75 mg 09/06/18 08:00 09/06/18 16:26 Voltaren PO 75 mg BIDWM JULIUS Administration Ferrous Sulfate 325 mg 09/06/18 09:00 09/06/18 09:13 Feosol PO 325 mg DAILY JULIUS Administration Sodium Chloride 1,000 mls @ 125 mls/hr 09/05/18 21:00 09/06/18 15:46 Normal Saline 0.9% IV 125 mls/hr .Q8H JULIUS Administration Insulin Glargine 23 unit 09/06/18 09:00 09/06/18 09:15 Lantus Solostar SUBQ 23 unit DAILY JULIUS Administration Levothyroxine Sodium 100 mcg 09/06/18 08:00 09/06/18 09:13 Synthroid PO 100 mcg QDAC JULIUS Administration Montelukast Sodium 10 mg 09/06/18 09:00 09/06/18 09:13 Singulair PO 10 mg DAILY JULIUS Administration Pantoprazole Sodium 40 mg 09/06/18 07:00 09/06/18 06:24 Protonix PO 40 mg QDAC JULIUS Administration - Lab Result Fish Bone Diagrams: 09/06/18 06:04 09/06/18 06:04 - Additional Planning My Orders: My Active Orders 09/06/18 Social Work Consult [CONS] Routine Evaluate and Treat OT [OT] Routine Evaluate and Treat PT [PT] Routine 09/06/18 07:59 Albuterol 2.5 mg INH RTQ4H 09/06/18 08:[address] [Voltaren] 75 mg PO BIDWM Levothyroxine [Synthroid] 100 mcg PO QDAC 09/06/18 08:01 Nebulizer/MDI Tx. [RC] QID Resp Teach Nebulizer/MDI [RC] .ONCE 09/06/18 08:18 Albuterol 2.5 mg INH RTQID 09/06/18 09:00 Apixaban [Eliquis] 5 mg PO BID Ferrous Sulfate [Feosol] 325 mg PO DAILY Insulin Glargine [Lantus Solostar] 23 unit SUBQ DAILY Montelukast [Singulair] 10 mg PO DAILY 09/06/18 17:42 1:1 Observation [RC] once 09/06/18 19:00 OLANZapine ODT [ZyPREXA ODT] 10 mg TL 1900 09/06/18 21:00 Latanoprost 0.005% Ophth Drops [Xalatan Ophth Drops] 1 drops EACHEYE QPM Subjective - Subjective Patient Reports: Other (patient speaks and goes off on tangents) Nursing Reports: Other (He thinks he will "get better".) Objective Vital Signs: Vital Signs - 24 hr 09/05/18 09/05/18 09/05/18 18:30 19:00 19:30 Temperature Heart Rate 94 87 88 Heart Rate [ Brachial] Heart Rate [ Monitoring electrodes] Heart Rate [ Sitting] Respiratory 17 21 20 Rate Respiratory Rate [With Activity] Blood Pressure 169/96 H 159/92 H 174/90 H Blood Pressure [Right Brachial artery] O2 Saturation 98 98 98 O2 Saturation [ With Activity] 09/05/18 09/05/18 09/06/18 20:30 23:58 04:06 Temperature 36.7 C 36.2 C L 36.2 C L Heart Rate Heart Rate [ 97 86 Brachial] Heart Rate [ 97 Monitoring electrodes] Heart Rate [ Sitting] Respiratory 16 18 18 Rate Respiratory Rate [With Activity] Blood Pressure Blood Pressure 141/74 H 156/85 H 170/94 H [Right Brachial artery] O2 Saturation 94 98 98 O2 Saturation [ With Activity] 09/06/18 09/06/18 09/06/18 08:45 11:55 13:00 Temperature 36.5 C 36.4 C L Heart Rate Heart Rate [ 78 84 Brachial] Heart Rate [ Monitoring electrodes] Heart Rate [ 81 Sitting] Respiratory 16 20 Rate Respiratory 12 Rate [With Activity] Blood Pressure Blood Pressure 169/77 H 146/75 H [Right Brachial artery] O2 Saturation 98 98 O2 Saturation [ 98 With Activity] 09/06/18 09/06/18 09/06/18 16:06 16:28 17:00 Temperature 36.5 C 36.5 C Heart Rate Heart Rate [ 88 88 Brachial] Heart Rate [ Monitoring electrodes] Heart Rate [ Sitting] Respiratory 20 20 Rate Respiratory Rate [With Activity] Blood Pressure Blood Pressure 173/87 H 169/91 H 173/87 H [Right Brachial artery] O2 Saturation 100 100 O2 Saturation [ With Activity] Oxygen O2 Source [With Activity] Room air O2 Source Room air I&O (Last 24 Hrs): Intake and Output Totals x24h 09/04/18 09/05/18 09/06/18 23:59 23:59 23:59 Intake Total 2960 Output Total 300 Balance -300 2960 General: Alert HEENT: Atraumatic, Mucous membr. moist/pink Neck: Supple Neuro: Disoriented, Other (Agitated briefly because he wants to go home) Cardiovascular: Regular rate Respiratory: No respiratory distress Abdomen: Soft Extremities: No edema - Results Results: Laboratory Results WBC 7.3 x10^3/uL (4.8-10.8) 09/06/18 06:04 RBC 4.39 10^6/uL (4.70-6.10) L 09/06/18 06:04 Hgb 13.0 g/dL (14.0-18.0) L 09/06/18 06:04 Hct 39.5 % (42.0-52.0) L 09/06/18 06:04 MCV 90.0 fL (80.0-94.0) 09/06/18 06:04 MCH 29.6 pg (27.0-31.0) 09/06/18 06:04 MCHC 32.9 g/dL (32.0-36.0) 09/06/18 06:04 RDW 12.8 % (12.0-15.0) 09/06/18 06:04 Plt Count 273 10^3/uL (130-450) 09/06/18 06:04 MPV 9.3 fL (7.4-11.4) 09/06/18 06:04 Neut # (Auto) 4.7 10^3/uL (1.5-6.6) 09/06/18 06:04 Lymph # (Auto) 1.5 10^3/uL (1.5-3.5) 09/06/18 06:04 Tift # (Auto) 0.8 10^3/uL (0.0-1.0) 09/06/18 06:04 Eos # (Auto) 0.3 10^3/uL (0.0-0.7) 09/06/18 06:04 Baso # (Auto) 0.1 10^3/uL (0.0-0.1) 09/06/18 06:04 Absolute Nucleated RBC 0.00 x10^3/uL 09/06/18 06:04 Nucleated RBC % 0.0 /100WBC 09/06/18 06:04 PT 13.1 secs (9.9-12.6) H 09/05/18 20:18 INR 1.2 (0.8-1.2) 09/05/18 20:18 APTT 30.1 secs (24.9-33.3) 09/05/18 17:43 Sodium 136 mmol/L (135-145) 09/06/18 06:04 Potassium 4.2 mmol/L (3.5-5.0) 09/06/18 06:04 Chloride 100 mmol/L (101-111) L 09/06/18 06:04 Carbon Dioxide 24 mmol/L (21-32) 09/06/18 06:04 Anion Gap 12.0 (6-13) 09/06/18 06:04 BUN 26 mg/dL (6-20) H 09/06/18 06:04 Creatinine 1.5 mg/dL (0.6-1.2) H 09/06/18 06:04 Estimated GFR (MDRD) 45 (>89) L 09/06/18 06:04 Glucose 111 mg/dL (70-100) H 09/06/18 06:04 Glycated Hemoglobin 6.6 % (4.6-6.2) H 09/06/18 06:04 Estim Average Glucose 143 (70-100) H 09/06/18 06:04 Calcium 8.9 mg/dL (8.5-10.3) 09/06/18 06:04 Total Bilirubin 0.8 mg/dL (0.2-1.0) 09/05/18 17:43 AST 24 IU/L (10-42) 09/05/18 17:43 ALT 41 IU/L (10-60) 09/05/18 17:43 Alkaline Phosphatase 43 IU/L (42-121) 09/05/18 17:43 Troponin I < 0.04 ng/mL (<0.49) 09/05/18 17:43 Troponin I High Sens 8.9 pg/mL (2.3-19.7) 09/05/18 17:43 Total Protein 7.3 g/dL (6.7-8.2) 09/05/18 17:43 Albumin 4.1 g/dL (3.2-5.5) 09/05/18 17:43 Globulin 3.2 g/dL (2.1-4.2) 09/05/18 17:43 Albumin/Globulin Ratio 1.3 (1.0-2.2) 09/05/18 17:43 Triglycerides 89 mg/dL (-149) 09/06/18 06:04 Cholesterol 163 mg/dL (-199) 09/06/18 06:04 LDL Cholesterol, Calc 95 mg/dL (-129) 09/06/18 06:04 VLDL Cholesterol 18 mg/dL 09/06/18 06:04 HDL Cholesterol 50 mg/dL (60-) L 09/06/18 06:04 LDL/HDL Ratio 1.9 (<3.6) 09/06/18 06:04 Cholesterol/HDL Ratio 3.3 (<5.0) 09/06/18 06:04 Lipase 43 U/L (22-51) 09/05/18 17:43 TSH 11.77 uIU/mL (0.34-5.60) H 09/05/18 17:43 Free T4 0.88 ng/dL (0.58-1.64) 09/05/18 17:43 Urine Color YELLOW 09/05/18 18:34 Urine Clarity CLEAR (CLEAR) 09/05/18 18:34 Urine pH 6.0 PH (5.0-7.5) 09/05/18 18:34 Ur Specific [place] <=1.005 (1.002-1.030) 09/05/18 18:34 Urine Protein TRACE mg/dL (NEGATIVE) 09/05/18 18:34 Urine Glucose (UA) NEGATIVE mg/dL (NEGATIVE) 09/05/18 18:34 Urine Ketones NEGATIVE mg/dL (NEGATIVE) 09/05/18 18:34 Urine Occult Blood NEGATIVE (NEGATIVE) 09/05/18 18:34 Urine Nitrite NEGATIVE (NEGATIVE) 09/05/18 18:34 Urine Bilirubin NEGATIVE (NEGATIVE) 09/05/18 18:34 Urine Urobilinogen 0.2 (NORMAL) E.U./dL (NORMAL) 09/05/18 18:34 Ur Leukocyte Esterase NEGATIVE (NEGATIVE) 09/05/18 18:34 Ur Microscopic Review NOT INDICATED 09/05/18 18:34 Urine Culture Comments NOT INDICATED 09/05/18 18:34 Urine Opiates Screen NEGATIVE (NEGATIVE) 09/05/18 18:34 Ur Oxycodone Screen NEGATIVE (NEGATIVE) 09/05/18 18:34 Urine Methadone Screen NEGATIVE (NEGATIVE) 09/05/18 18:34 Ur Propoxyphene Screen NEGATIVE (NEGATIVE) 09/05/18 18:34 Ur Barbiturates Screen NEGATIVE (NEGATIVE) 09/05/18 18:34 Ur Tricyclics Screen NEGATIVE (NEGATIVE) 09/05/18 18:34 Ur Phencyclidine Scrn NEGATIVE (NEGATIVE) 09/05/18 18:34 Ur Amphetamine Screen NEGATIVE (NEGATIVE) 09/05/18 18:34 U Methamphetamines Scrn NEGATIVE (NEGATIVE) 09/05/18 18:34 U Benzodiazepines Scrn NEGATIVE (NEGATIVE) 09/05/18 18:34 Urine Cocaine Screen NEGATIVE (NEGATIVE) 09/05/18 18:34 U Cannabinoids Screen NEGATIVE (NEGATIVE) 09/05/18 18:34 Ethyl Alcohol < 5.0 mg/dL 09/05/18 17:43 - Procedures Procedures: Procedures OTHER ENDOSCOPY OF INTEST (07/31/13)
[2018-09-06] MEDS: ALBUTEROL NEB 2.5 MG/3 ML INH SCH ×4 (18:15→22:13)
[2018-09-06] MEDS: OLANZapine ODT 5 MG TABLET TL SCH (18:24)
[2018-09-06] MEDS ORDERED: LORazepam 2 MG/ML VIAL IVP STA (20:13)
[2018-09-06] MEDS: LATANOPROST 0.005% OPHTH DROPS EACHEYE SCH (22:02)
[2018-09-07] MEDS ORDERED: SODIUM CHLORIDE FLUSH 0.9% 10 ML SYRINGE ONE (00:46)
[2018-09-07] MEDS ORDERED: ALBUTEROL NEB 2.5 MG/3 ML INH PRN (06:47)
[2018-09-07 07:03] LABS: BASOPHILS # (AUTO) 0.1 10^3/uL (0.0-0.1); EOSINOPHILS # (AUTO) 0.4 10^3/uL (0.0-0.7); EOSINOPHILS % (AUTO) 5.5 %; HGB - HEMOGLOBIN 13.2 g/dL (14.0-18.0); LYMPHOCYTES # (AUTO) 1.4 10^3/uL (1.5-3.5); LYMPHOCYTES % (AUTO) 19.5 %; MEAN CORPUSCULAR HEMOGLOBIN 30.5 pg (27.0-31.0); MEAN CORPUSCULAR VOLUME 92.4 fL (80.0-94.0); MEAN PLATELET VOLUME 9.3 fL (7.4-11.4); MONOCYTES # (AUTO) 0.8 10^3/uL (0.0-1.0); MONOCYTES % (AUTO) 10.8 %; NEUTROPHILS # (AUTO) 4.4 10^3/uL (1.5-6.6); NEUTROPHILS % (AUTO) 62.8 %; PLT - PLATELET COUNT 234 10^3/uL (130-450); RED BLOOD COUNT 4.33 10^6/uL (4.70-6.10); RED CELL DISTRIBUTION WIDTH 12.6 % (12.0-15.0)
[2018-09-07] MEDS: ALBUTEROL NEB 2.5 MG/3 ML INH SCH ×3 (07:20→17:01)
[2018-09-07 07:33] LABS: CALCIUM 8.7 mg/dL (8.5-10.3); CREATININE 1.5 mg/dL (0.6-1.2)
[2018-09-07] MEDS: FERROUS SULFATE 325 MG TABLET PO SCH (11:37)
[2018-09-07] MEDS: APIXABAN 5 MG TABLET PO SCH ×2 (11:37→19:08)
[2018-09-07] MEDS: MONTELUKAST 10 MG TABLET PO SCH (11:37)
[2018-09-07] MEDS: PANTOPRAZOLE 40 MG TABLET PO SCH (11:37)
[2018-09-07] MEDS: DICLOFENAC SODIUM DR 75 MG TABLET PO SCH ×2 (11:37→17:43)
[2018-09-07] MEDS: ASPIRIN EC 81 MG TABLET PO SCH (11:38)
[2018-09-07] MEDS: LEVOTHYROXINE 100 MCG TABLET PO SCH (11:38)
[2018-09-07] MEDS: INSULIN GLARGINE 300 UNIT/3 ML PEN SUBQ SCH (12:08)
--- NOTE | 2018-09-07 17:27 | PROVIDER PROGRESS NOTE ---
Subjective - Prog Note Date Prog Note Date: 09/07/18 Prog Note Time: 17:25 - Subjective Pt reports feeling: Improved Subjective: Wes complains of wanting to get out of bed, but continues to require a 1:1 sitter for combative behaviors. PT evaluation today has recommended fpc for rehab. He is not able to contribute to his review of systems. Current Medications - Current Medications Current Medications: Active Medications: Albuterol 2.5 mg INH RTQID [facility] Albuterol 2.5 mg INH RTQ4H PRN Apixaban (Eliquis) 5 mg PO BID [facility] Aspirin (Ecotrin) 81 mg PO DAILY [facility] Diclofenac Sodium (Voltaren) 75 mg PO BIDWM [facility] Ferrous Sulfate (Feosol) 325 mg PO DAILY [facility] Haloperidol (Haldol Inj) 1 mg IVP Q6H PRN Insulin Glargine (Lantus Solostar) 23 unit SUBQ DAILY [facility] Latanoprost (Xalatan Ophth Drops) 1 drops EACHEYE QPM [facility] Levothyroxine Sodium (Synthroid) 100 mcg PO QDAC [facility] Montelukast Sodium (Singulair) 10 mg PO DAILY [facility] Olanzapine (Zyprexa Odt) 10 mg TL 1900 [facility] Pantoprazole Sodium (Protonix) 40 mg PO QDAC [facility] meds: Fluticasone/Salmeterol [Advair 250-50 Diskus] 1 puffs INH BID 07/30/13 Insulin Glargine [Lantus] 23 units SUBQ DAILY 07/30/13 Montelukast [Singulair] 10 tab PO QPM 07/30/13 Apixaban [Eliquis] 5 mg PO BID 02/16/16 Latanoprost 0.005% Ophth Drops [Xalatan Ophth Drops] 1 drops EACHEYE QPM 05/30/17 Brinzolamide/Brimonidine Tart [Simbrinza 1%-0.2% Eye Drops] 1 drops EACHEYE TID 08/26/[address] [Voltaren] 75 mg PO BIDWM 08/26/18 Omeprazole 20 mg PO BIDAC 08/26/18 raNITIdine [Zantac] 150 mg PO BID 08/26/18 Albuterol 2.5 mg INH Q4H PRN 09/06/18 Ipratropium [place] 1 - 2 spray DEVYN BID 09/06/18 Mupirocin 2% Oint [Bactroban 2% Oint] 1 applic TOP BID 09/06/18 Simvastatin [Zocor] 10 mg PO DAILY 09/06/18 Simvastatin [Zocor] 10 mg PO QPM 09/06/18 Objective - Vital Signs/Intake & Output Reviewed Vital Signs: Yes Vital Signs: Vital Signs x48h Pulse Resp 09/07/18 12:10 89 16 Intake & Output: Intake & Output 09/04/18 09/05/18 09/06/18 09/07/18 23:59 23:59 23:59 23:59 Intake Total 3385 540 Output Total 300 150 600 Balance -300 3235 -60 - Objective General Appearance: positive: Alert, Moderate distress, Anxious Eyes Bilateral: positive: PERRL ENT: positive: Pharynx nml, No signs of dehydration Neck: positive: Thyroid nml, No JVD, Trachea midline Respiratory: positive: Chest non-tender, No respiratory distress, Other (diminished bilaterally) Cardiovascular: positive: Regular rate & rhythm, No gallop, Systolic murmur, Decreased pulse(s) Peripheral Pulses: 1+ Radial (R), 1+ Radial (L) Abdomen: positive: Non-tender, Nml bowel sounds, Hepatomegaly Back: positive: Nml inspection Skin: positive: Color nml, No rash, Warm, Dry Extremities: positive: Non-tender, Full ROM, Nml appearance, No pedal edema Neurologic/Psychiatric: positive: Disoriented to person, Disoriented to place, Disoriented to time, Weakness, Sensory loss, Slurred/abnml speech, Depressed mood/affect, Other (dementia) Reflexes: Bicep (R): 2+, Bicep (L): 2+ - Lab Results Fish Bones: 09/07/18 06:58 09/07/18 06:58 Other Labs: Lab Results x24hrs 09/07/18 09/07/18 Range/Units 06:58 06:58 WBC 7.0 (4.8-10.8) x10^3/uL RBC 4.33 L (4.70-6.10) 10^6/uL Hgb 13.2 L (14.0-18.0) g/dL Hct 40.0 L (42.0-52.0) % MCV 92.4 (80.0-94.0) fL MCH 30.5 (27.0-31.0) pg MCHC 33.0 (32.0-36.0) g/dL RDW 12.6 (12.0-15.0) % Plt Count 234 (130-450) 10^3/uL MPV 9.3 (7.4-11.4) fL Neut # (Auto) 4.4 (1.5-6.6) 10^3/uL Lymph # (Auto) 1.4 L (1.5-3.5) 10^3/uL [place] # (Auto) 0.8 (0.0-1.0) 10^3/uL Eos # (Auto) 0.4 (0.0-0.7) 10^3/uL Baso # (Auto) 0.1 (0.0-0.1) 10^3/uL Absolute Nucleated RBC 0.00 x10^3/uL Nucleated RBC % 0.0 /100WBC Sodium 135 (135-145) mmol/L Potassium 4.1 (3.5-5.0) mmol/L Chloride 103 (101-111) mmol/L Carbon Dioxide 20 L (21-32) mmol/L Anion Gap 12.0 (6-13) BUN 21 H (6-20) mg/dL Creatinine 1.5 H (0.6-1.2) mg/dL Estimated GFR (MDRD) 45 L (>89) Glucose 88 (70-100) mg/dL Calcium 8.7 (8.5-10.3) mg/dL ABX Reporting Has patient been on IV antibiotics over the past 48 hours?: No Assessment/Plan - Problem List (1) Weakness Impression: - PT evaluation today was completed and recommends fpc for rehab for disposition Plan: Continue to work with daily, 1:1 sitter for impulsive behaviors, continue medical management (2) TIA (transient ischemic attack) Impression: - Reported to have a facial droop on the last admission - Also for this admission, could not perform simple common tasks such as pulling up pants - Brain MRI from Saturday morning was negative for CVA Plan: Continue home statin, ASA, monitor for symptoms (3) COPD (chronic obstructive pulmonary disease) Impression: - Takes a nightly singular, advair and LAMA at home Plan: Continue respiratory care (4) Dementia Impression: - Increasing worse in the past several months Qualifiers: Dementia type: Alzheimer's disease Dementia behavioral disturbance: with behavioral disturbance (5) Diabetes mellitus Impression: - Hemoglobin A1C is 6.6%, a little low for his age giving the potential for falls d/t hypoglycemia - Takes daily Lantus at home Plan: Reduce Lantus dosing to 15 units daily, monitor for hypoglycemia Qualifiers: Diabetes mellitus type: type 2 (6) Anticoagulant long-term use Impression: - Takes Eliquis for a fib Plan: Continue here, discontinue telemetry (7) GERD (gastroesophageal reflux disease) Impression: - Takes a PPI at home Plan: continue here
[2018-09-07] MEDS: LATANOPROST 0.005% OPHTH DROPS EACHEYE SCH (19:08)
[2018-09-07] MEDS: OLANZapine ODT 5 MG TABLET TL SCH (19:08)
[2018-09-08 05:26] LABS: BASOPHILS # (AUTO) 0.1 10^3/uL (0.0-0.1); BASOPHILS % (AUTO) 0.9 %; EOSINOPHILS # (AUTO) 0.5 10^3/uL (0.0-0.7); EOSINOPHILS % (AUTO) 6.9 %; HGB - HEMOGLOBIN 12.7 g/dL (14.0-18.0); LYMPHOCYTES # (AUTO) 1.8 10^3/uL (1.5-3.5); LYMPHOCYTES % (AUTO) 23.2 %; MEAN CORPUSCULAR HEMOGLOBIN 30.5 pg (27.0-31.0); MEAN CORPUSCULAR HGB CONC 33.4 g/dL (32.0-36.0); MEAN CORPUSCULAR VOLUME 91.1 fL (80.0-94.0); MEAN PLATELET VOLUME 9.2 fL (7.4-11.4); MONOCYTES # (AUTO) 0.8 10^3/uL (0.0-1.0); NEUTROPHILS # (AUTO) 4.4 10^3/uL (1.5-6.6); NEUTROPHILS % (AUTO) 57.6 %; PLT - PLATELET COUNT 265 10^3/uL (130-450); RED BLOOD COUNT 4.17 10^6/uL (4.70-6.10); RED CELL DISTRIBUTION WIDTH 12.8 % (12.0-15.0); WHITE BLOOD COUNT 7.6 x10^3/uL (4.8-10.8)
[2018-09-08 05:40] LABS: CALCIUM 8.7 mg/dL (8.5-10.3); CREATININE 1.9 mg/dL (0.6-1.2)
[2018-09-08] MEDS: LEVOTHYROXINE 100 MCG TABLET PO SCH (06:42)
[2018-09-08] MEDS: PANTOPRAZOLE 40 MG TABLET PO SCH (06:42)
[2018-09-08] MEDS: ALBUTEROL NEB 2.5 MG/3 ML INH SCH ×5 (06:53→19:07)
[2018-09-08] MEDS: ASPIRIN EC 81 MG TABLET PO SCH (08:46)
[2018-09-08] MEDS: DICLOFENAC SODIUM DR 75 MG TABLET PO SCH (08:47)
[2018-09-08] MEDS: FERROUS SULFATE 325 MG TABLET PO SCH (08:47)
[2018-09-08] MEDS: MONTELUKAST 10 MG TABLET PO SCH (08:47)
[2018-09-08] MEDS: APIXABAN 5 MG TABLET PO SCH ×2 (08:47→19:42)
[2018-09-08] MEDS: INSULIN GLARGINE 300 UNIT/3 ML PEN SUBQ SCH (08:47)
--- NOTE | 2018-09-08 12:24 | PROVIDER PROGRESS NOTE ---
Subjective - Prog Note Date Prog Note Date: 09/08/18 Prog Note Time: 12:22 - Subjective Subjective: Patient drowsy when first seen by me this morning Per RN later more alert, AT noon, in, patient reports in hospital, knows date, time, not sure of why When asked re any pain "I'm getting a pain" referring to me I think asking orientation questions states "if you dont tell him hes not going home he'll befine" Current Medications - Current Medications Current Medications: Active Medications Albuterol () 2.5 mg INH RTQID [facility] Last Admin: 09/08/18 10:59 Dose: 2.5 mg Albuterol () 2.5 mg INH RTQ4H PRN PRN Reason: Wheezing Apixaban (Eliquis) 5 mg PO BID [facility] Last Admin: 09/08/18 08:47 Dose: 5 mg Aspirin (Ecotrin) 81 mg PO DAILY [facility] Last Admin: 09/08/18 08:46 Dose: 81 mg Diclofenac Sodium (Voltaren) 75 mg PO BIDWM [facility] Last Admin: 09/08/18 08:47 Dose: 75 mg Ferrous Sulfate (Feosol) 325 mg PO DAILY [facility] Last Admin: 09/08/18 08:47 Dose: 325 mg Haloperidol (Haldol Inj) 1 mg IVP Q6H PRN PRN Reason: Agitation Last Admin: 09/07/18 01:00 Dose: 1 mg Insulin Glargine (Lantus Solostar) 23 unit SUBQ DAILY [facility] Last Admin: 09/08/18 08:47 Dose: 23 unit Latanoprost (Xalatan Ophth Drops) 1 drops EACHEYE QPM [facility] Last Admin: 09/07/18 19:08 Dose: 1 drops Levothyroxine Sodium (Synthroid) 100 mcg PO QDAC [facility] Last Admin: 09/08/18 06:42 Dose: 100 mcg Montelukast Sodium (Singulair) 10 mg PO DAILY [facility] Last Admin: 09/08/18 08:47 Dose: 10 mg Olanzapine (Zyprexa Odt) 2.5 mg TL 1900 [facility] Pantoprazole Sodium (Protonix) 40 mg PO QDAC [facility] Last Admin: 09/08/18 06:42 Dose: 40 mg Polyethylene Glycol (Miralax) 17 gm PO DAILY [facility] Fluticasone/Salmeterol [Advair 250-50 Diskus] 1 puffs INH BID 07/30/13 Insulin Glargine [Lantus] 23 units SUBQ DAILY 07/30/13 Montelukast [Singulair] 10 tab PO QPM 07/30/13 Apixaban [Eliquis] 5 mg PO BID 02/16/16 Latanoprost 0.005% Ophth Drops [Xalatan Ophth Drops] 1 drops EACHEYE QPM 05/30/17 Brinzolamide/Brimonidine Tart [Simbrinza 1%-0.2% Eye Drops] 1 drops EACHEYE TID 08/26/[address] [Voltaren] 75 mg PO BIDWM 08/26/18 Omeprazole 20 mg PO BIDAC 08/26/18 raNITIdine [Zantac] 150 mg PO BID 08/26/18 Albuterol 2.5 mg INH Q4H PRN 09/06/18 Ipratropium [place] 1 - 2 spray DEVYN BID 09/06/18 Mupirocin 2% Oint [Bactroban 2% Oint] 1 applic TOP BID 09/06/18 Simvastatin [Zocor] 10 mg PO DAILY 09/06/18 Simvastatin [Zocor] 10 mg PO QPM 09/06/18 Objective - Vital Signs/Intake & Output Reviewed Vital Signs: Yes Vital Signs: Vital Signs x48h Temp Pulse Pulse Resp BP Pulse Ox 09/08/18 10:59 104 H 18 09/08/18 07:42 36.4 C L 87 16 162/89 H 93 09/08/18 06:54 74 16 Intake & Output: Intake & Output 09/05/18 09/06/18 09/07/18 09/08/18 23:59 23:59 23:59 23:59 Intake Total 3385 900 540 Output Total 300 150 600 140 Balance -300 3235 300 400 - Objective General Appearance: positive: No acute distress, Alert, Other (As above, initially seen ~ 730, minimally arousing to name, but more awake whenRN later saw.) Eyes Bilateral: positive: Normal inspection Respiratory: positive: Chest non-tender, No respiratory distress Cardiovascular: positive: Regular rate & rhythm, No murmur Abdomen: positive: Nml bowel sounds, No distention. negative: Tenderness (incontinent in adult pad, generous abdomen) Skin: positive: Warm, Dry. negative: Cyanosis (answers orientation questions appropriately, but seems suspicious of why they are being asked) Extremities: negative: Pedal edema Neurologic/Psychiatric: positive: Oriented x3. negative: Mood/affect nml (oriented, but affect somewhat off / annoyed (but not currently agitated) about the orientation questions) - Lab Results Fish Bones: 09/08/18 04:58 09/09/18 07:03 Other Labs: Lab Results x24hrs 09/08/18 09/08/18 Range/Units 04:58 04:58 WBC 7.6 (4.8-10.8) x10^3/uL RBC 4.17 L (4.70-6.10) 10^6/uL Hgb 12.7 L (14.0-18.0) g/dL Hct 38.0 L (42.0-52.0) % MCV 91.1 (80.0-94.0) fL MCH 30.5 (27.0-31.0) pg MCHC 33.4 (32.0-36.0) g/dL RDW 12.8 (12.0-15.0) % Plt Count 265 (130-450) 10^3/uL MPV 9.2 (7.4-11.4) fL Neut # (Auto) 4.4 (1.5-6.6) 10^3/uL Lymph # (Auto) 1.8 (1.5-3.5) 10^3/uL [place] # (Auto) 0.8 (0.0-1.0) 10^3/uL Eos # (Auto) 0.5 (0.0-0.7) 10^3/uL Baso # (Auto) 0.1 (0.0-0.1) 10^3/uL Absolute Nucleated RBC 0.00 x10^3/uL Nucleated RBC % 0.0 /100WBC Sodium 138 (135-145) mmol/L Potassium 4.0 (3.5-5.0) mmol/L Chloride 103 (101-111) mmol/L Carbon Dioxide 25 (21-32) mmol/L Anion Gap 10.0 (6-13) BUN 28 H (6-20) mg/dL Creatinine 1.9 H (0.6-1.2) mg/dL Estimated GFR (MDRD) 34 L (>89) Glucose 80 (70-100) mg/dL Calcium 8.7 (8.5-10.3) mg/dL Assessment/Plan - Problem List (1) Weakness Impression: (1) Weakness Impression: - PT eval (had cane FWWW at home) JPT eval 09/07 poor Ballance, LOb backwareds ; Moderate assist, High fall risk; Recommended SNF on D/C Family [place] bed, SW contacting [place] Possible d/c if bed available 09/09 Continue daily PT/MWF OT til d/c Fal precautions/ impusive/ reducing olanzapine started here for agitation as high starting dose given age 83/ may be contributing to imbalance (2) TIA (transient ischemic attack) Impression: - Work up for TIA based on facial droop (also noted admit earlier this week) / and unable to pull up trousers in bathroom No acute stroke or ischemia on Brain MRI Saturday Echo; done today 09/08 ; no significant findings ; Normal LV size and function EF 65;70%, normal diastology, NoWMA, mild concentric LVH, Mild to mod Asclerosis, no , Trace AR, Trce MR, RVSP not determined Plan: Continue home statin, ASA, of note he is on eliquis BID for hx VTE (3) COPD (chronic obstructive pulmonary disease) Impression: -Stable Takes a nightly singular, advair and LAMA at home Plan: Continue respiratory care (4) Dementia Impression: - Increasing worse in the past several months Scheduled zyprexa 10 mg q pm started 09/06 for agitation/ Reducing dose today given ? sedation/ reduce to 2.5 mg On discharge to SNF, given black box warning, consider bert psych eval, if should continue after discharge (5) Diabetes mellitus Impression: - Hemoglobin A1C is 6.6%, Possibly reflets overcontrol at age 83 - Takes daily Lantus at home 23 units 09/07 4p 95, 8 p 118, 4a 90,, today pre breakfast 140 on 23 units (09/07 progress note indicates reducing lantus to 15 units, but order is still 23 units; no hypoglycemia Will reeval if need any change in dose before discharge, but 23 units likely too much Do not resume glimeperide! (was on pre admit) (6) Anticoagulant long-term use/Hx LE DVT Impression: - Takes Eliquis LLE DVT since 2012 per Note NO hx atrial fibrillation (note prior note from 09/07 inadvertantly notes eliquis for afib) Continue eliquis (per life long/ I do not know details if this was provoked vs unprovoked; consider check if still indicated as outpatient) (7) GERD (gastroesophageal reflux disease) Impression: - Takes a PPI at home continues here Acute on chronic renal insufficinecy patient self d/c 'd IV, No new meds; on bid diclofenac (PO AND ARB); will hold NSAID and check w if tolerates Push PO fluid (confrimed new Rx zyprexa not associated)
[2018-09-08] MEDS: POLYETHYLENE GLYCOL 3350 17 GM PACKET PO SCH (12:28)
[2018-09-08] MEDS: OLANZapine ODT 5 MG TABLET TL SCH (19:42)
[2018-09-08] MEDS: LATANOPROST 0.005% OPHTH DROPS EACHEYE SCH (20:19)
[2018-09-08] MEDS ORDERED: SODIUM CHLORIDE FLUSH 0.9% 10 ML SYRINGE ONE (23:34)
[2018-09-09] MEDS: PANTOPRAZOLE 40 MG TABLET PO SCH (06:54)
[2018-09-09] MEDS: LEVOTHYROXINE 100 MCG TABLET PO SCH (06:54)
[2018-09-09 07:19] LABS: CALCIUM 8.8 mg/dL (8.5-10.3); CREATININE 1.7 mg/dL (0.6-1.2)
[2018-09-09] MEDS: ALBUTEROL NEB 2.5 MG/3 ML INH SCH ×4 (07:40→21:03)
[2018-09-09] MEDS: APIXABAN 5 MG TABLET PO SCH ×2 (09:28→20:31)
[2018-09-09] MEDS: ASPIRIN EC 81 MG TABLET PO SCH (09:28)
[2018-09-09] MEDS: DOCUSATE SODIUM 250 MG CAPSULE PO SCH (09:28)
[2018-09-09] MEDS: MONTELUKAST 10 MG TABLET PO SCH (09:28)
[2018-09-09] MEDS: SENNA 8.6 MG TABLET PO SCH (09:28)
[2018-09-09] MEDS: POLYETHYLENE GLYCOL 3350 17 GM PACKET PO SCH (09:28)
[2018-09-09] MEDS: FERROUS SULFATE 325 MG TABLET PO SCH (09:28)
[2018-09-09] MEDS: INSULIN GLARGINE 300 UNIT/3 ML PEN SUBQ SCH (10:48)
--- NOTE | 2018-09-09 18:12 | PROVIDER PROGRESS NOTE ---
Subjective - Prog Note Date Prog Note Date: 09/09/18 (late entry from 09/09) - Subjective Pt reports feeling: No change (patient without complaints) Objective - Vital Signs/Intake & Output Reviewed Vital Signs: Yes Vital Signs: Vital Signs x48h Temp Pulse Pulse Pulse Resp BP Pulse Ox 09/09/18 16:45 36.4 C L 106 H 20 146/80 H 98 09/09/18 16:10 86 18 09/09/18 12:15 80 18 09/09/18 12:06 36.4 C L 93 18 134/78 H 96 Intake & Output: Intake & Output 09/06/18 09/07/18 09/08/18 09/09/18 23:59 23:59 23:59 23:59 Intake Total 3385 900 1630 800 Output Total 150 600 320 Balance 3235 300 1310 800 - Objective General Appearance: positive: No acute distress, Alert (sitting up in chair having breakfast, cooperative, no agitation), Other (Patient only seen very briefly today, no formal exam,) - Lab Results Fish Bones: 09/08/18 04:58 09/09/18 07:03 Other Labs: Lab Results x24hrs 09/09/18 Range/Units 07:03 Sodium 138 (135-145) mmol/L Potassium 4.3 (3.5-5.0) mmol/L Chloride 101 (101-111) mmol/L Carbon Dioxide 25 (21-32) mmol/L Anion Gap 12.0 (6-13) BUN 28 H (6-20) mg/dL Creatinine 1.7 H (0.6-1.2) mg/dL Estimated GFR (MDRD) 39 L (>89) Glucose 116 H (70-100) mg/dL Calcium 8.8 (8.5-10.3) mg/dL Assessment/Plan - Problem List (1) Weakness Impression: (1) Weakness Impression: Patient accepted at [facility] in [place] for early tomorrow 09/10 09/08 - PT eval (had cane FWWW at home) JPT eval 09/07 poor Ballance, LOb backwareds ; Moderate assist, High fall risk; Recommended SNF on D/C Family [place] bed, SW contacting [place] Possible d/c if bed available 09/09 Continue daily PT/MWF OT til d/c Fal precautions/ impusive/ reduced olanzapine started here for agitation from 10 mg to 2.5mg as high starting dose given age 83/ may be contributing to imbalance (2) TIA (transient ischemic attack) Impression: No acute stroke or ischemia on Brain MRI Saturday, facial droop resolved - Work up for TIA based on facial droop (also noted admit earlier this week) / and unable to pull up trousers in bathroom Echo; done 09/08 ; no significant findings ; Normal LV size and function EF 65;70%, normal diastology, NoWMA, mild concentric LVH, Mild to mod Asclerosis, no , Trace AR, Trce MR, RVSP not determined Plan: Continue home statin, ASA, of note he is on eliquis BID for hx VTE (3) COPD (chronic obstructive pulmonary disease) Impression: -Stable Takes a nightly singular, advair and LAMA at home Continue home regimen (4) Dementia Impression: Did not require prn haldol last pm Less sedate on reduced dose zyprexa continue 2.5 mg nightly zyprexa for occas agitated mood 09/08 - Increasing worse in the past several months Scheduled zyprexa 10 mg q pm started 09/06 for agitation/ Reducing dose 09/08 given ? sedation/ reduce to 2.5 mg On discharge to SNF, given black box warning, consider bert psych eval, if should continue after discharge (5) Diabetes mellitus Impression: - Hemoglobin A1C is 6.6%, Possibly reflets overcontrol at age 83 - Takes daily Lantus at home 23 units REasonable control/ No hypoglycemia on 23 units last Pm 09/07 4p 95, 8 p 118, 4a 90,, today pre breakfast 140 on 23 units (09/07 progress note indicates reducing lantus to 15 units, but order is still 23 units; no hypoglycemia Will reeval if need any change in dose before discharge, but 23 units likely too much Do not resume glimeperide! (was on pre admit) (6) Anticoagulant long-term use/Hx LE DVT Impression: - Takes Eliquis LLE DVT since 2012 per Note NO hx atrial fibrillation (note prior note from 09/07 inadvertantly notes eliquis for afib) Continue eliquis (per life long/ I do not know details if this was provoked vs unprovoked; consider check if still indicated as outpatient) (7) GERD (gastroesophageal reflux disease) Impression: - Takes a PPI at home continues here Acute on chronic renal insufficinecy patient self d/c 'd IV, Cr from admission 1.8>>1.5>> 15>> 1.9>>1.7 No new meds; on bid diclofenac (PO AND ARB); will hold NSAID and check w if tolerates Push PO fluid (confrimed new Rx zyprexa not associated)
[2018-09-09] MEDS: OLANZapine ODT 5 MG TABLET TL SCH (18:45)
[2018-09-09] MEDS: LATANOPROST 0.005% OPHTH DROPS EACHEYE SCH (20:31)
[2018-09-10 00:19] VITALS: BP 148/80
[2018-09-10] MEDS: ALBUTEROL NEB 2.5 MG/3 ML INH SCH (07:39)
--- NOTE | 2018-09-10 08:00 | Discharge Plan ---
"Discharge Plan for SNF / [facility] - Discharge Plan And Transition Orders Problem Reviewed?: Yes Disposition: 03 SNF DC/Xfer Condition: Stable Allergies and Adverse Reactions: Allergies Allergy/AdvReac Type Severity Reaction Status Date / Time JANNY Inhibitors Allergy Intermediate Unknown Verified 08/26/18 14:35 lovastatin Allergy Intermediate Headache Verified 08/26/18 14:35 tiotropium bromide * Allergy Intermediate Respiratory Verified 08/26/18 14:35 [From Spiriva with HandiHaler] azithromycin [From Zithromax] Allergy Unknown Unknown Verified 08/26/18 14:35 carvedilol [From Coreg] Allergy Unknown Unknown Verified 08/26/18 14:35 losartan [Losartan] Allergy Unknown Unknown Verified 08/26/18 14:35 metformin Allergy Unknown Unknown Verified 08/26/18 14:35 olmesartan medoxomil * Allergy Unknown Unknown Verified 08/26/18 14:35 [From Benicar] sitagliptin [From Januvia] Allergy Unknown Verified 08/26/18 14:35 Plan of Treatment: 1)Weakness; PT/OT for maximum functional ability, not likely to return to independent living Imbalance; Patient accepted at [facility] for early tomorrow 09/09 09/08 PT eval 09/07 poor Balance, loss of backwareds ; Moderate assist, High fall risk; Recommended SNF on D/Cg olanzapine started here for agitation as high starting dose given age 83/ may be contributing to imbalance (2) TIA (transient ischemic attack) Possible TIA - no further symptoms, continues ASA, statin, BP and glucose control 09/08Work up for TIA based on facial droop (also noted admit earlier this week) / and unable to pull up trousers in bathroom No acute stroke or ischemia on Brain MRI Saturday, facial droop resolved Echo; done today 09/08 ; no significant findings ; Normal LV size and function EF 65;70%, normal diastology, NoWMA, mild concentric LVH, Mild to mod Asclerosis, no , Trace AR, Trce MR, RVSP not determined (3) COPD (chronic obstructive pulmonary disease) stable continues home regimen, no oxygen requirement, prn nebs (4) Dementia w/ occasional behavioral disturbance Impression: Frequent reorienting Agitated on admission Was started on zyprexa 10 mg , reduced to 2.5 mg Had last dose haldol on 09/07 Has been cooperative last 48 hours, no agitation (5) Diabetes mellitus Impression: Stable, Diabetic / carb controlled diet FSBG q ac/hs, continue pm lantus 23 units, low dose SSI Hemoglobin A1C is 6.6%, No hypolycemia here on lantus 23 units q pm no longer on glimeperide (6) Anticoagulant long-term use/Hx LE DVT Impression: - Takes Eliquis LLE DVT since 2012 per (NO hx afib monitor for bleeding Receiving provider (MD/PA,OPERATIONS [employer]ARDM[employer]) if possible try to determine why lifelong anti coag (DVT 2012, not clear if provoked/unprovoked) (7) GERD (gastroesophageal reflux disease) Impression: - Stable , continues H2B, and PPI 8)Acute on chronic renal insufficinecy stable, Cr 1.7 (1.8 on admit); holding NSAID - SNF / [facility] Transition Orders Admit to (Facility): [facility] [place], [place] Discharge Diagnosis: HPI: 1) Possible TIA, negative MRI, negative Echo , neg tele , continues ASA, statin, DM and HTN control 2) Weakness; PT recommended SNF , impulsive, C/C to [facility] today 09/09 3) Diabetes mellitus Continues Lantus 23 units q pm, A1C 6.6 Glimeperide stopped 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 for hx DVT (per in 2012 5) Dementia; worsening, with some behavioral disturbance, no metabolic or infectious abnormality 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 Notify PCP of admission and forward orders to primary provider for signature. Weight on admission and: Weekly Other Notification Orders: Call PCP immediately if patient develops dyspnea, chest pain/tightness or edema. House Bowel Program: Yes Additional Bowel Program Orders: If no BM after 2 days, nurse may give M.O.M. 30ml PO PRN and/or ducolax Supp 1 SD and/or CORBY 250mg P.O., and/or senna 1-2 tabs PO. On day 3 nurse may give repeat above order until residents constipation is resolved. Annual Influenza Vaccine (between Oct 19 and May 18): Yes Two-step PPD per [facility] [id number] or approved exception documents: Yes Treatments & Other Orders: FSBG q ac/ hs. Monitor for any signs of stroke/ TIA. PT/OT for maximum functional capacity, Reduce fall risk. Reorient frequently Oxygen Orders: none indicated Lab Tests or X-ray Orders: None Orthopedic Orders: None Medication Orders: PLEASE REFER TO THE DISCHARGE MEDICATION LIST. Insulin Orders?: Yes - Diet Type: Diabetic Texture: Regular Liquids: Thin May have monthly special meal: Yes - Therapies | Activity Therapy: Evaluation | Treat if indicated: PT, OT Rehabilitation Potential: Maximize functional status Activity: with walker Weight Bearing: Full Weight Assistance Devices: Walker, Cane Insulin Orders - SNF Basal | Correction | Custom Orders: Diagnosis: Diabetes Initiate hypo and hyperglycemia protocols for BG <70 and BG >375. May check BG PRN for signs/symptoms of dysglycemia. Frequency of BG checks: [AC/Meal/HS] Basal Insulin: [x] Lantus 100 units / ml inject subq as follows: [23 units q pm] [] Other: [] Correction Insulin: - Select the type of insulin below [Choose: Novolog/Humalog]100 units /ml insulin inject subq per orders indicate below [x] LOW DOSE [] MODERATE DOSE [] MODERATE/HIGH DOSE [] HIGH DOSE GB UNITS GB UNITS GB UNITS GB UNITS 61-140 0 UNITS 61-140 0 UNITS 61-140 0 UNITS 61-140 0 UNITS 141-175 1 UNITS 141-175 1 UNITS 141-175 2 UNITS 141-175 3 UNITS 176-225 2 UNITS 176-225 3 UNITS 176-225 4 UNITS 176-225 5 UNITS 226-275 3 UNITS 226-275 5 UNITS 226-275 6 UNITS 226-275 7 UNITS 276-325 4 UNITS 276-325 7 UNITS 276-325 8 UNITS 276-325 9 UNITS 326-375 5 UNITS 326-375 9 UNITS 326-375 10 UNITS 326-375 11 UNITS >375 CONTACT MD >375 CONTACT MD >375 CONTACT MD >375 CONTACT MD Custom Dosing: [Choose: Novolog/Humalog] 100 units/ml Insulin inject subq as follows: GB Units 61-140 [] Units 141-175 [] Units 176-225 [] Units 226-275 [] Units 276-325 []Units 326-375 [] Units >375 Contact MD"
[2018-09-10] MEDS: ASPIRIN EC 81 MG TABLET PO SCH (08:15)
[2018-09-10] MEDS: DOCUSATE SODIUM 250 MG CAPSULE PO SCH (08:15)
[2018-09-10] MEDS: FERROUS SULFATE 325 MG TABLET PO SCH (08:15)
[2018-09-10] MEDS: PANTOPRAZOLE 40 MG TABLET PO SCH (08:15)
[2018-09-10] MEDS: LEVOTHYROXINE 100 MCG TABLET PO SCH (08:15)
[2018-09-10] MEDS: APIXABAN 5 MG TABLET PO SCH (08:15)
[2018-09-10] MEDS: MONTELUKAST 10 MG TABLET PO SCH (08:15)
[2018-09-10] MEDS: SENNA 8.6 MG TABLET PO SCH (08:15)
[2018-09-10] MEDS: POLYETHYLENE GLYCOL 3350 17 GM PACKET PO SCH (08:15)
[2018-09-10] MEDS: INSULIN GLARGINE 300 UNIT/3 ML PEN SUBQ SCH (08:16)
--- NOTE | 2018-09-11 06:44 | DISCHARGE SUMMARY ---
Discharge Summary Admit Date: 09/05/18 Discharge Date: 09/10/18 Discharging Provider: LIVIA Romero Code Status: Do Not Attempt Resuscitation Condition at Discharge: Stable Discharge Disposition: 03 SNF DC/Xfer Discharge Facility Name: [facility] - DIAGNOSES Admission Diagnoses: Possible TIA History of DVT Diabetes Mellitus Dementia Hypothyroidism GERD COPD Discharge Diagnoses with Status of Each Condition: -Possible TIA; facial droop resolved, no stroke on MRI, CTA head does show a distal branch of the MCA has at least moderate stenosis no pertinant findings on echo continues on statin, Aspirin added -History of DVT; 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 If not unprovoked, Eliquis may no longer be indicated -Diabetes Mellitus; Stable , no hypoglycemia on home lantus 23 units q p -Dementia with some behavioural disturbance, impulsiveness/ likey significant vascular dementia. low dose zyprexa added (2.5 q pm), evaluated by PT,recommended SNF (and unable to care for at home) Accepted at [facility] Acute on chronic kidney injury; stable -Hypothyroidism;, GERD, COPD; stable; continues home regimen - HPI History of Present Illness: Patient is an 83 y/o male with Hx of Dementia who presented to the ED via EMS with confusion and right facial droop. After using the restroom at home, he could not remember to pull up his pants or how to work the belt button. His also reported a right facial droop. After this incident, he decided that they (his and himself) should go out for dinner at [employer] in [place]. He was going to drive from their house in [place]. His noticed his actions while driving were concerning/ unsafe and diverted the trip to their friend's home since they were nearby. However the friends were not home. As a result of calling out the friend's neighbor came out. After asking the patient some questions which he could not answer, EMS was called and the patient was brought to the ED. At bedside, his wanted to know why he was in the hospital. Then he began mildly agitating that he wanted to be at the [place]. His was at bedside after haven been driven to the hospital by their friend's neighbor and she help with the his tory. She was insistent that he stay in the hospital for work up. She explained that the last time the MRI could not be done because the patient could not stay still because of sensitivity to noise and that she was informed that he would need sedation for an MRI. Also they were asked to follow up with their PCP for an echo but they were not able to get an appointment until 09/15/18. The patient does not have any significant neurological deficits at the moment. He is being admitted for a stroke vs TIA work up. He denies chest pain, WILTON, abd pain, nausea, vomiting, fever or chills. The rest of the history is unremarkable. - CONSULTS | PROCEDURES Consultations: None Procedures: none - HOSPITAL COURSE Hospital Course: 1)Weakness/Imbalance; PT/OT ealuated patient SNF recommendedfor maximum functional ability, not likely to return to independent living Imbalance; Patient accepted at [facility] for early tomorrow 09/09 09/08 PT eval 09/07 poor Balance, loss of backwareds ; Moderate assist, High fall risk; Recommended SNF on D/Cg olanzapine started here for agitation as high starting dose given age 83/ may be contributing to imbalance (2) TIA (transient ischemic attack) Possible TIA - no further symptoms, continues ASA, statin, BP and glucose control 09/08Work up for TIA based on facial droop (also noted admit earlier this week) / and unable to pull up trousers in bathroom No acute stroke or ischemia on Brain MRI Saturday but distal branch of MCA as above with at least moderate stenosis; could be pertinant to TIA, facial droop resolved Echo; 09/08 ; no significant findings ; Normal LV size and function EF 65;70%, normal diastology, No WMA, mild concentric LVH, Mild to mod Asclerosis, no , Trace AR, Trace MR, RVSP not determined (3) COPD (chronic obstructive pulmonary disease) stable continues home regimen, no oxygen requirement, prn nebs (4) Dementia w/ occasional behavioral disturbance Impression: Frequent reorienting Agitated on admission Was started on zyprexa 10 mg , reduced to 2.5 mg Had last dose haldol on 09/07 Has been cooperative last 48 hours, no agitation (5) Diabetes mellitus Impression: Stable, Diabetic / carb controlled diet FSBG q ac/hs, continue pm lantus 23 units, low dose SSI Hemoglobin A1C is 6.6%, No hypolycemia here on lantus 23 units q pm no longer on glimeperide (6) Anticoagulant long-term use/Hx LE DVT Impression: - Takes Eliquis LLE DVT since 2012 per (NO hx afib monitor for bleeding Receiving provider (MD/PA,MORTGAGE CONSULTANT) if possible try to determine why lifelong anti coag (DVT 2012, not clear if provoked/unprovoked) (7) GERD (gastroesophageal reflux disease) Impression: - Stable , continues H2B, and PPI 8)Acute on chronic renal insufficinecy stable, Cr 1.7 (1.8 on admit); holding NSAID If resume Voltaren, consider once daily rather than BID - ALLERGIES Allergies/Adverse Reactions: Allergies Allergy/AdvReac Type Severity Reaction Status Date / Time JANNY Inhibitors Allergy Intermediate Unknown Verified 08/26/18 14:35 lovastatin Allergy Intermediate Headache Verified 08/26/18 14:35 tiotropium bromide * Allergy Intermediate Respiratory Verified 08/26/18 14:35 [From Spiriva with HandiHaler] azithromycin [From Zithromax] Allergy Unknown Unknown Verified 08/26/18 14:35 carvedilol [From Coreg] Allergy Unknown Unknown Verified 08/26/18 14:35 losartan [Losartan] Allergy Unknown Unknown Verified 08/26/18 14:35 metformin Allergy Unknown Unknown Verified 08/26/18 14:35 olmesartan medoxomil * Allergy Unknown Unknown Verified 08/26/18 14:35 [From Benicar] sitagliptin [From Januvia] Allergy Unknown Verified 08/26/18 14:35 - MEDICATIONS Home Medications: Ambulatory Orders Medication Instructions Recorded Confirmed Fluticasone/Salmeterol [Advair 1 puffs INH BID 07/30/13 09/06/18 250-50 Diskus] Insulin Glargine [Lantus] 23 units SUBQ DAILY 07/30/13 09/06/18 Montelukast [Singulair] 10 tab PO QPM 07/30/13 09/06/18 Apixaban [Eliquis] 5 mg PO BID 02/16/16 09/06/18 Latanoprost 0.005% Ophth Drops 1 drops EACHEYE QPM 05/30/17 09/06/18 [Xalatan Ophth Drops] Brinzolamide/Brimonidine Tart 1 drops EACHEYE TID 08/26/18 09/06/18 [Simbrinza 1%-0.2% Eye Drops] Omeprazole 20 mg PO BIDAC 08/26/18 09/06/18 raNITIdine [Zantac] 150 mg PO BID 08/26/18 09/06/18 Albuterol 2.5 mg INH Q4H PRN 09/06/18 09/06/18 Ipratropium [place] 1 - 2 spray DEVYN BID 09/06/18 09/06/18 Simvastatin [Zocor] 10 mg PO QPM 09/06/18 09/06/18 Albuterol 2.5 mg INH RTQ4H PRN neb 09/10/18 Levothyroxine [Synthroid] 100 mcg PO QDAC tablet 09/10/18 OLANZapine ODT [Zyprexa Odt] 2.5 mg TL 1900 tablet 09/10/18 - PHYSICAL EXAM AT DISCHARGE General Appearance: positive: No acute distress, Alert, Other (sitting up in chair, eating , drinking coffee during exam, "I;m going home") Eyes Bilateral: positive: Normal inspection, EOMI, Other (wearing glasses) Respiratory: positive: Chest non-tender, No respiratory distress Cardiovascular: positive: Regular rate & rhythm, No murmur Abdomen: positive: Nml bowel sounds, No distention, Other (generous abdomen). negative: Tenderness Skin: positive: Warm, Dry Extremities: negative: Pedal edema Neurologic/Psychiatric: positive: Motor nml. 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 Head CTA 09/05/18 No large vessel occlusion Proximal R MCA patent without significant stenosis, but there is a distal branch (bartololey M4), along R posterior frontal operculum which is irregular , likely with at least moderate stenosis (50-70% luminal narrowing) Echocardiogram Normal LV size and function EF 65;70%, normal diastology, No WMA, mild c oncentric LVH, Mild to mod Asclerosis, no , Trace AR, Trace MR, RVSP not determined - TIME SPENT Time Spent in Discharge (Minutes): 35
== END 2018-09-10 09:12 ==
LOC: EDUNIT# → ED 17:24 → MS2 19:47
PROVIDERS: ADMIT Internal Medicine; ATTEND Nurse Practitioner
DX: R29.810 Facial weakness (principal); R41.0 Disorientation, unspecified; R26.89 Other abnormalities of gait and mobility; R53.1 Weakness; I66.01 Occlusion and stenosis of right middle cerebral artery; G30.9 Alzheimer's disease, unspecified; F02.81 Dementia in other diseases classified elsewhere, unspecified severity, with behavioral disturbance; E11.22 Type 2 diabetes mellitus with diabetic chronic kidney disease; N18.9 Chronic kidney disease, unspecified; E03.9 Hypothyroidism, unspecified; K21.9 Gastro-esophageal reflux disease without esophagitis; J44.9 Chronic obstructive pulmonary disease, unspecified; F41.9 Anxiety disorder, unspecified; Z79.01 Long term (current) use of anticoagulants; Z86.718 Personal history of other venous thrombosis and embolism; Z79.51 Long term (current) use of inhaled steroids; Z79.4 Long term (current) use of insulin; Z79.899 Other long term (current) drug therapy; Z66 Do not resuscitate; Z91.81 History of falling; Z87.891 Personal history of nicotine dependence; Z78.1 Physical restraint status
CPT/HCPCS: 36415; 70450; 70496; 70498; 70551; 80048; 80061; 81003; 83036; 83690; 84439; 84484; 85025; 85610; 85730; 93005; 93306; 94640; 96361; 96374; 96376; 97116; 97161; 97164; 97165; 99284; 99285; A9270; G0378; J1815; J2060; Q9967; 80053; 80306; 80320; 81001; 83721; 84443; 87086